=== PATIENT | male | born 1950 | race Caucasian/White ===

== ENCOUNTER → 2016-06-17 | Outpatient (CLI) | payer BC ==
[~2016-06-17] MED LIST: ACET-1257 PO; ASPCH81 PO; BSP/10 PO; CALC200T PO; CILO100T PO; COEN75CA PO; CYCL-259 PO; GLC/500 PO; LISI-729 PO; METO25TA3 PO; OMEG10007 PO; OXYC-609 PO; PRAV20TA PO
[2016-06-17 13:12] LABS: ESTIMATED AVERAGE GLUCOSE 126 mg/dl; HA1C FLAG Normal (Normal)
[2016-06-17 13:17] LABS: ALT/SGPT 84 U/L (12-78); AST/SGOT 52 U/L (15-37); BLOOD UREA NITROGEN 13 mg/dl (7-18); BUN/CREATININE RATIO 12.6 (10-20); CALCIUM 8.9 mg/dl (8.5-10.1); CARBON DIOXIDE 27 mmol/L (21-32); CHLORIDE 109 mmol/L (98-107); GLUCOSE 116 mg/dl (70-99); POTASSIUM 4.3 mmol/L (3.5-5.1); SODIUM 141 mmol/L (136-145)
[2016-06-17 13:20] LABS: ALKALINE PHOSPHATASE 64 U/L (45-117); CHOLESTEROL 112 mg/dl (0-200); CHOLESTEROL/HDL RATIO 2.9; HDL CHOLESTEROL 39 mg/dl; LDL CHOLESTEROL CALCULATED 50 mg/dl; TRIGLYCERIDES 117 mg/dl (0-150); VERY LOW DENSITY LIPOPROT CALC 23 mg/dl
== END | disposition home or self-care (01) ==
LOC: C.LABPVFM 07:22
PROVIDERS: ATTEND Family Medicine
DX: E11.9 Type 2 diabetes mellitus without complications (principal); Z79.899 Other long term (current) drug therapy; E78.5 Hyperlipidemia, unspecified

== ENCOUNTER → 2016-07-16 | Outpatient (CLI) | payer BC ==
--- NOTE | 2016-07-16 11:09 | DIAGNOSTIC IMAGING REPORT ---
Right upper quadrant ultrasound (LIVER) ABDOMEN LIMITED CLINICAL HISTORY: R74.8 Abnormal liver [id number] abnormal liver function tests TECHNIQUE: Ultrasound COMPARISON STUDY: None FINDINGS: Fatty infiltration of liver. Normal caliber bile ducts. Common bile duct 4 mm. Gallbladder pancreas and right kidney are unremarkable IMPRESSION: Fatty infiltration of liver. Otherwise negative study Electronically signed by: Sid Esteban M.D. 07/16/2016 11:08 AM Dictated Date/Time: 07/16/2016 11:06 AM
== END | disposition home or self-care (01) ==
LOC: C.ULTR 10:20
PROVIDERS: ATTEND Family Medicine
DX: R74.8 Abnormal levels of other serum enzymes (principal); K76.0 Fatty (change of) liver, not elsewhere classified

== ENCOUNTER → 2016-10-07 | Outpatient (CLI) | payer BC ==
[~2016-10-07] MED LIST changes: +ACET-1257; -ACET-1257 PO; -LISI-729 PO
[2016-10-07 13:02] LABS: ESTIMATED AVERAGE GLUCOSE 134 mg/dl; HA1C FLAG Normal (Normal)
[2016-10-07 15:06] LABS: ALT/SGPT 60 U/L (12-78); BLOOD UREA NITROGEN 19 mg/dl (7-18); BUN/CREATININE RATIO 19.5 (10-20); CALCIUM 9.9 mg/dl (8.5-10.1); CARBON DIOXIDE 27 mmol/L (21-32); CHLORIDE 106 mmol/L (98-107); CREATININE 0.96 mg/dl (0.60-1.40); GLUCOSE 99 mg/dl (70-99); POTASSIUM 4.4 mmol/L (3.5-5.1); SODIUM 138 mmol/L (136-145)
[2016-10-07 15:09] LABS: ALB/GLOB RATIO 0.9 (0.9-2); ALKALINE PHOSPHATASE 54 U/L (45-117); AST/SGOT 39 U/L (15-37)
== END | disposition home or self-care (01) ==
LOC: C.LABPVFM 08:10
PROVIDERS: ATTEND Family Medicine
DX: Z11.59 Encounter for screening for other viral diseases (principal); F41.8 Other specified anxiety disorders; E11.9 Type 2 diabetes mellitus without complications; E78.5 Hyperlipidemia, unspecified; I10 Essential (primary) hypertension

== ENCOUNTER → 2016-10-17 | Outpatient (CLI) | payer BC ==
[~2016-10-17] MED LIST changes: -OXYC-609 PO
--- NOTE | 2016-10-17 08:37 | DIAGNOSTIC IMAGING REPORT ---
CT HEAD COMBO CT DOSE: 1577.26 mGycm TECHNIQUE: Noncontrast images were obtained through the brain in the axial plane. The sequence was repeated following administration of 119 Optiray 320. A dose lowering technique was utilized adhering to the principles of ALARA. HISTORY: ACUTE HEADACHE SECONDARY TO TRAUMA, NAUSEA COMPARISON: 06/16/2011, MRI the brain dated 12/31/2015 FINDINGS: No intra or extra-axial mass lesions are visualized. There is no CT evidence of acute cortical infarction. There is no evidence of midline shift. There is no acute hemorrhage. No calvarial fractures are visualized. There are minimal white matter hypodensities likely on a small vessel basis. There is no evidence of pathologic ventricular dilatation. There is no evidence of acute sinusitis Postcontrast images reveal no pathologically enhancing masses. IMPRESSION: No acute intracranial findings Electronically signed by: Rainer Felix M.D. 10/17/2016 8:36 AM Dictated Date/Time: 10/17/2016 8:34 AM
== END | disposition home or self-care (01) ==
LOC: C.CTS 08:06
PROVIDERS: ATTEND Neuromusculoskeletal Medicine & OMM
DX: G44.319 Acute post-traumatic headache, not intractable (principal); R11.0 Nausea

== ENCOUNTER → 2016-11-12 | Outpatient (CLI) | payer BC ==
--- NOTE | 2016-11-12 11:55 | DIAGNOSTIC IMAGING REPORT ---
C-SPINE ROUTINE 4 OR 5 VIEWS CLINICAL HISTORY: 66 years-old Male presenting with R CERVICALGIA S/P TRAUMA. TECHNIQUE: Lateral, bilateral oblique, frontal, and open-mouth odontoid views of the cervical spine were obtained. COMPARISON: None. FINDINGS: Normal cervical lordosis. Vertebral bodies demonstrate normal height and alignment. Intervertebral disc preserved. No radiographic evidence of acute fracture or subluxation. Suggestion of osseous neural foraminal narrowing at C3-4 bilaterally, right greater than left, although no significant degenerative change is apparent on lateral view. Normal predental interval. Lateral masses of C1 articulate normally with C2. No prevertebral soft tissue swelling. A vascular stent is visualized in the superior mediastinum likely within the left common carotid artery. IMPRESSION: Possible osseous neural foraminal narrowing bilaterally at C3-4, greater on the right. No radiographic evidence of acute osseous injury. Electronically signed by: Andres Preston M.D. 11/12/2016 11:54 AM Dictated Date/Time: 11/12/2016 11:51 AM
--- NOTE | 2016-11-12 13:13 | Pain Clinic Return Visit ---
Pain Clinic Return Visit Date of Service Nov 12, 2016. Reason For Visit Migraine headaches Pain Location 1 - 2 - 3 - Subjective 66-year-old male who presents with a new pain complaint to our office. He has been working with neurology for some time for his chronic daily headache. He states that his headache occurs at least 20 times to 25 times per month lasting greater than 4 hours in duration causing a severe degree of disability and intrusion into his activities of daily living. He states that typically the right sided with photophobia. He denies any specific aura or triggering aspect of his headache. He states his headache pain typically ranges between 0 and 10 out of 10 but currently 5 out of 10. He states that he normally has some kind of headache every day with periodic frequent flares. He's tried home stretches , Topamax, Lyrica, Tylenol, aspirin, BuSpar to diminish his headaches with limited benefit. He has not previously had any interventional pain management techniques to diminish his headaches. He states that he's recently seen his porter sample case who felt there is no need for change in his prescription. He also recently visited with his dentist and found no additional dental reason for headache. He denies any hemiplegia, fever, diplopia, slurred speech, or paralysis associated with his headaches. The patient also has a history of left-sided lumbar extremity radicular pain and is post L5-S1 interlaminar HAN performed on 09/23/2016. Patient is reporting continued resolution of left lower extremity radicular pain since the time of the procedure. The patient continues to complain of axial low back pain which has been without change since the time the epidural steroid injection. The patient is planned for repeat radiofrequency ablation procedure initially on the right side in November 2016. He reports axial pain increases with his daytime job related duties especially with twisting and lifting activities. He describes the pain as aching in characteristic and occasionally sharp. He rates his pain at a 0-9/10. He utilizes oxycodone a few times per month with increased levels of pain with efficacy. He describes occasional spasms and sharp pains which can radiate from the lumbosacral region towards the midthoracic area right greater than left-sided. Patient denies weaknesses in the lower extremities, footdrop or falling. He has no bowel or bladder incontinence. He denies saddle anesthesias. He has no further constitutional complaints. Home Medications Scheduled Acetaminophen (Tylenol Extra Strength), 1 TID Aspirin (Aspirin Tab-Chewable *), 81 MG PO DAILY Buspirone HCl (Buspirone HCl), 10 MG PO TID Calcium Carbonate-Vitamin D (Oscal 500/200 D-3), 1 TAB PO DAILY Cilostazol (Pletal), 100 MG PO BID Coenzyme Q10 (Ubidecarenone) (Co Q-10), 1 CAP PO BID Cyclobenzaprine Hcl (Flexeril), 10 MG PO BID Fish Oil ([place]-3), 4 CAP PO BID Metformin Hcl (Glucophage), 500 MG PO BID Metoprolol Succ (Toprol Xl) (Toprol-Xl), 50 MG PO DAILY Pravastatin (Pravachol ), 80 MG PO HS Allergies Coded Allergies: Prednisone (Verified Adverse Reaction, Mild, "goes wacko gets nasty", ) Uncoded Allergies: [id number] (Allergy, Mild, "goes wacko gets nasty", 04/11/15) Medications & Allergies Reconciled: Yes Review of Systems 10 point review of systems was otherwise negative aside from HPI Objective 109/66 pulse 106 respirations 18-36.9C Height feet, inches. Weight (Kilograms) (Pounds) Physical Exam General: Patient sitting quietly in exam room in no acute distress. Speech and thought process appropriate. Mood and affect appropriate. Cognition intact. HEENT: Pupils equally round and reactive to light he is moderately tender over bilateral supraorbital and supratrochlear nerves. Minimally tender over bilateral auriculotemporal nerves. He is exquisitely tender over bilateral greater occipital and lesser occipital nerves. He is nontender over frontal or maxillary sinuses he has mild crepitus bilaterally over his temporomandibular joint. He has very poor dentition but no apparent abscess or other dental caries at this time glasses are intact but able to read a newspaper without difficulty. Neck: He has decreased extension, flexion, side bending and, side bend rotation. He has mild spasm over bilateral mid and proximal trapezius. Right greater than left. He is exquisitely tender over his right C2 and 3 facet joints as well as third occipital nerve. Provocation to these joints re- creates his pain. He is mildly tender over the left C2 3 joint and third occipital nerve. He has 5 out of 5 strength bilateral upper extremities equal throughout with intact sensation. Back/spine: Loss of lumbar lordosis. Patient nontender over the midline. Patient tender to provocative testing of lumbar facet joints at the L2 through L5 level on the right and L3 through S1 level on the left. Facet loadbearing test equivocal bilaterally. There is evidence of paravertebral spasm with a few myoneural trigger points in the thoracolumbar region with some extension into the quadratus lumborum. Range of motion is limited in all planes with slight increase in axial pain. Lower extremities: SLR negative bilaterally. Strength testing 5/5 and equal. Sensation intact without deficit. Neurologic: Cranial nerves grossly intact. Ambulatory function is normal. Laboratory Laboratory Findings Test 09/23/16 09:00 10/07/16 09:00 Range/Units POC Glucose 96 70-99 mg/dl Sodium Level 138 136-145 mmol/L Potassium Level 4.4 3.5-5.1 mmol/L Chloride Level 106 98-107 mmol/L Carbon Dioxide Level 27 21-32 mmol/L Anion Gap 5.0 3-11 mmol/L Blood Urea Nitrogen 19 H 7-18 mg/dl Creatinine 0.96 0.60-1.40 mg/dl Estimated GFR () 95.1 Estimated GFR (Non- 82.0 BUN/Creatinine Ratio 19.5 10-20 Random Glucose 99 70-99 mg/dl Estimated Average Glucose 134 mg/dl Hemoglobin A1c 6.3 H 4.5-5.6 % Calcium Level 9.9 8.5-10.1 mg/dl Total Bilirubin 0.4 0.2-1 mg/dl Aspartate Amino Transferase (AST) 39 H 15-37 U/L Alanine Aminotransferase (ALT) 60 12-78 U/L Alkaline Phosphatase 54 45-117 U/L Total Protein 8.1 6.4-8.2 gm/dl Albumin 3.8 3.4-5.0 gm/dl Globulin 4.3 H 2.5-4.0 gm/dl Albumin/Globulin Ratio 0.9 0.9-2 Hepatitis C Antibody NEG NEG Imaging Radiology: non enhanced, reports reviewed Radiology Findings C-SPINE ROUTINE 4 OR 5 VIEWS CLINICAL HISTORY: 66 years-old Male presenting with R CERVICALGIA S/P TRAUMA. TECHNIQUE: Lateral, bilateral oblique, frontal, and open-mouth odontoid views of the cervical spine were obtained. COMPARISON: None. FINDINGS: Normal cervical lordosis. Vertebral bodies demonstrate normal height and alignment. Intervertebral disc preserved. No radiographic evidence of acute fracture or subluxation. Suggestion of osseous neural foraminal narrowing at C3-4 bilaterally, right greater than left, although no significant degenerative change is apparent on lateral view. Normal predental interval. Lateral masses of C1 articulate normally with C2. No prevertebral soft tissue swelling. A vascular stent is visualized in the superior mediastinum likely within the left common carotid artery. IMPRESSION: Possible osseous neural foraminal narrowing bilaterally at C3-4, greater on the right. No radiographic evidence of acute osseous injury. Electronically signed by: Andres Preston M.D. 11/12/2016 11:54 AM Assessment 1. Lumbar radiculopathy without myelopathy 2. History of lumbar disc herniation L5-S1 with left neural foraminal narrowing 3. Lumbar facet syndrome 4. Chronic lumbago 5. History of sacral alae insufficiency fractures 11/2013 6. History of CVA 7. History of sacroiliitis 8. Chronic migraine headaches 9. Cervical facet syndrome 10. cervicalgia Recommendations 1. Currently pleased with the relief the patient continues to experience status post HAN. Expectations were discussed a verbalized understanding. Should the patient developed symptomatic recurrence, we discussed his candidacy for repeat HAN and he verbalizes understanding. Patient may contact the clinic to schedule. 2. Patient will follow through with a currently scheduled right L2, L3 and L4 medial branch radio frequency ablation procedure. Inherent risks and potential benefits again reviewed. 3. We'll plan for diagnostic right C2, C3 medial branch, and third occipital nerve block. Should he have good relief 2 would plan for radiofrequency ablation of those sites. The risks and benefits and expectations were discussed and the patient agrees to proceed. Procedure will be scheduled. 4. In addition the patient may be a candidate for Botox a migraine protocol. Will discuss further candidacy for this pending results of medial branch block and possible RFA. 5. Follow-up for injection.
== END | disposition home or self-care (01) ==
LOC: C.LABBC 11:23
PROVIDERS: ATTEND Anesthesiology
DX: M54.2 Cervicalgia (principal); Z87.828 Personal history of other (healed) physical injury and trauma

== ENCOUNTER → 2017-02-09 | Outpatient (CLI) | payer BC ==
[~2017-02-09] MED LIST changes: -ACET-1257; +ACET-1257 PO; +LISI-729 PO
[2017-02-09 13:54] LABS: ESTIMATED AVERAGE GLUCOSE 123 mg/dl; HA1C FLAG Normal (Normal)
== END | disposition home or self-care (01) ==
LOC: C.LABPVFM 09:53
PROVIDERS: ATTEND Nurse Practitioner
DX: E11.9 Type 2 diabetes mellitus without complications (principal)

== ENCOUNTER → 2017-06-08 | Outpatient (CLI) | payer OTHER ==
[2017-06-08 13:20] LABS: HEMOGLOBIN A1C 8.8 % (4.5-5.6)
== END | disposition home or self-care (01) ==
LOC: C.LABPVFM 10:23
PROVIDERS: ATTEND Nurse Practitioner
DX: E11.9 Type 2 diabetes mellitus without complications (principal); E78.5 Hyperlipidemia, unspecified

== ENCOUNTER 2024-04-11 15:51 | Inpatient (IN) ==
[2024-04-11] MEDS: SODIUM CHLORIDE 0.9% 1,000 ML IV ONE ×2 (17:01→19:37)
[2024-04-11 17:11] LABS: Basophils # (auto) 0.04 K/uL (0.00-0.20); Basophils % (auto) 0.5 %; Eosinophils # (auto) 0.03 K/uL (0.00-0.50); Eosinophils % (auto) 0.4 %; Hematocrit (blood only) 37.9 % (42.0-52.0); Hemoglobin 13.4 g/dl (14.0-18.0); Immature Granulocytes # (auto) 0.04 K/uL (0.01-0.20); Immature Granulocytes % (auto) 0.5 %; Lymphocytes # (auto) 0.86 K/uL (1.20-3.40); Lymphocytes % (auto) 10.8 %; Mean Corpuscular Hemoglobin 30.2 pg (25.0-34.0); Mean Corpuscular Hgb Conc 35.4 g/dL (32.0-36.0); Mean Corpuscular Volume 85.6 fL (80.0-100.0); Mean Platelet Volume 10.1 fL (9.4-12.4); Monocytes # (auto) 0.72 K/uL (0.11-0.59); Neutrophils # (auto) 6.28 K/uL (1.40-6.50); Neutrophils % (auto) 78.8 %; Platelet Count 140 K/uL (130-400); RDW Coefficient of Variation 13.4 % (11.5-14.5); RDW Standard Deviation 41.9 fL (36.4-46.3); Red Blood Count 4.43 M/uL (4.70-6.10); White Blood Count 7.97 K/ul (4.8-10.8)
[2024-04-11 17:39] LABS: Influenza A virus by PCR Positive (Neg); Influenza B virus by PCR Negative (Neg); RSV by PCR Negative (Neg); SARS CoV2 RNA(COVID-19) Ceph NEGATIVE (Negative)
[2024-04-11 17:46] LABS: Albumin Globulin Ratio 1.1 (0.9-2); Albumin Level 4.1 gm/dl (3.4-5.0); BUN Creatinine Ratio 13.9 (10-20); Bilirubin,Total 0.6 mg/dl (0.2-1.0); Globulin 3.9 gm/dl (2.5-4.0); Magnesium 1.9 mg/dl (1.7-2.4); Troponin I High Sensitivity 17.8 pg/ml (0-20)
--- NOTE | 2024-04-11 17:46 | XRay Report ---
INDICATION: Cough and chest pain. TECHNIQUE: Frontal radiograph of the chest. COMPARISON: Radiograph from 07/10/2015. FINDINGS: The cardiomediastinal silhouette and pulmonary vasculature appear within normal limits. No infiltrate, pleural effusion or pneumothorax. No acute osseous abnormality evident. Stent material noted in the left aspect of the upper mediastinum. IMPRESSION: No acute cardiopulmonary process. Electronically signed by Iain Boogie 04-11-2024 5:03 PM
--- NOTE | 2024-04-11 17:54 | Emergency Department Note ---
Impression & Plan Influenza ED Provider Note NAME: GEORGE CHESTER AGE: 73 SEX: Male INFORMANT: Patient ED PROVIDER(S): Diego Agee MD CHIEF COMPLAINT: Shortness of breath and cough PLAN: Disposition: Admitted none Outpatient prescription management: none Referral: None MEDICAL DECISION MAKING: Patient presented to the emergency room because of shortness of breath and cough. Workup was initiated. Patient was found to be influenza positive. Chest x-ray revealed no evidence of pneumonia. He was quite tachycardic. He was hydrated. He was given Tylenol for fever. He received Tamiflu and Hycodan. Patient was also given a DuoNeb. Patient was monitored. Fever did resolve and patient was still persistently tachycardic ECG did show some ST depression. Patient denied any chest pain. Suspect illness is causing the tachycardia but given his persistence further management in the hospital be necessary. Consultation was made with the [facility] service. Patient was evaluated in the ER and admitted for further management Care/management discussed with: crane manager Level of care consideration(s): After review of the information above and other included data, I feel the patient requires escalation of care to admission Triage Nursing notes: reviewed and agree them. Vital Signs: reviewed and remarkable for tachycardia, fever Additional History obtained from: none Chronic Medical/Social Conditions affecting care: COPD Prior/ Outside/ External records reviewed: none Differential Diagnosis: Viral syndrome, otitis, pharyngitis, pneumonia, influenza, meningitis, urinary tract infection, sepsis, bacteremia, as well as other pathologies. Diagnostics, independently interpreted by me: ECG: Twelve-lead ECG reveals a sinus tachycardia at [address] depression noted. Cardiac Monitoring: Cardiac monitoring ordered by me: The patient was placed on continuous cardiac monitoring and observed. It revealed sinus tachycardic rhythm at 122 beats per minute without ectopy or evidence of dysrhythmia. Medical decision rules: none Imaging studies: Chest x-ray. Findings: A chest x-ray was performed and revealed no pneumothorax, effusion, infiltrate, pulmonary edema, free air under the diaphragm, or wide mediastinum. Impression: No acute disease. HPI: 73 year old Male arrives for evaluation of shortness of breath and cough. This started 2 days ago and is persisting. The patient also notes the following associated symptoms, diarrhea, congestion,Fatigue, fevers, chills, sore throat, headache nausea, weakness, myalgias. The patient has found out relieving factors. Current pain is rated as 10/10. Pt denies LOC, diaphoresis, visual changes, neck pain, chest pain, vomiting, abdominal pain, back pain, melena, hematochezia, urinary symptoms, numbness, , lymphadenopathy, rash, or other complaints.. PAST MEDICAL HISTORY: See Below, diabetes, hypertension, PAD PAST SURGICAL HISTORY: See Below, SOCIAL HISTORY: See Below, smoker HOME MEDICATIONS: See Below ALLERGIES: See Below VITALS: See Below PHYSICAL EXAMINATION: GENERAL: Awake, alert, ill-appearing, in no distress HENT: Normocephalic, atraumatic. Oropharynx unremarkable. EYES: Normal conjunctiva. Sclera non-icteric. NECK: Inspection normal. Non-tender. Supple. No nuchal rigidity. FROM. No masses. RESPIRATORY: Clear to auscultation. No wheezes. No rales. Increased respiratory effort. CARDIAC: Tachycardic rate. Normal rhythm. No murmurs. No rubs. Extremities warm and well perfused. Pulses equal. No JVD. GI: Soft, non-distended. No tenderness to palpation. No rebound or guarding. No masses. RECTAL: Deferred. MUSCULOSKELETAL: Atraumatic. Chest examination reveals no tenderness. The back is symmetrical on inspection without obvious abnormality. There is no CVA tenderness to palpation. No joint edema. LOWER EXTREMITIES: Calves are equal size bilaterally and non-tender. No edema. No discoloration. NEURO: Normal sensorium. No sensory or motor deficits noted. SKIN: No rash or jaundice noted. PROCEDURES: none CRITICAL CARE: none OBSERVATION NOTE: none Past Med/Surg History Problem List (Updated 04/12/24 @ 00:46 by Background Daemon) Influenza (Acute) Tick bite Sinus congestion Joint pain Rash Subclavian steal syndrome (Chronic) Solitary thyroid nodule (Chronic) Peripheral vascular disease (Chronic) Migraine (Chronic) Lumbar radiculopathy (Chronic) Hypertension (Chronic) Hyperlipidemia (Chronic) Diabetes type 2, controlled (Chronic) Carotid artery stenosis (Chronic) COPD, mild (Chronic) Anxiety (Chronic) Abnormal MRI, pelvis (Acute) Medical History (Updated 04/12/24 @ 00:46 by Background Dasebastiánon) Carpal tunnel syndrome Surgical History (Updated 01/26/19 @ 14:44 by MALICK Prado) History of hernia repair Family History (Updated 01/26/19 @ 14:46 by MALICK Prado) Sister Diabetes Hypertension Sarcoidosis Skin cancer Daughter No problems noted. Brother Diabetes Mother Diabetes Myocardial infarction Father Diabetes Suicide Other Dyslipidemia Stroke Denies family history of Ovarian cancer Prostate cancer Breast cancer Colorectal cancer Social History (Updated 01/26/19 @ 14:48 by MALICK Prado) Smoking Status: Current every day smoker Tobacco Type: Cigarettes packs per day: 1; Second Hand Exposure: Yes; Do You Dip or Chew Tobacco: No; Hx Alcohol Use: No Hx Substance Use: No Preferred Language: Czech Visual Impairment: No Limitations Hearing Ability: Normal marital status: Current Living Situation: Spouse current occupational status: employed 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 [employer] Feels Safe at Home: Hesitant to Answer Dental Care, Regularly: Yes Physical Activity Frequency: Daily Seatbelt Use: always Sunscreen Use: Yes Allergies Allergies Allergy/AdvReac Type Severity Reaction Status Date / Time prednisone AdvReac Mild "goes Verified 01/26/19 14:43 wacko gets nasty" Results & Data (ED) Vital Signs Vital Signs - 24 hr 04/11/24 16:12 04/11/24 16:15 04/11/24 17:51 Temperature 36.6 C Temperature Source Oral Pulse Rate 122 H Pulse Rate [Apical] 125 H Pulse Rhythm [Apical] Respiratory Rate 18 19 Respiratory Effort / Characteristics Non-Labored Spontaneous Respiratory Depth Normal Blood Pressure 158/66 H Blood Pressure [Left Arm] 179/124 H Blood Pressure Mean 96 Blood Pressure Mean [Left Arm] 142 Blood Pressure Position Sitting Blood Pressure Position [Left Arm] Semi-fowlers Pulse Oximetry 94 97 92 Oxygen Delivery Method Room Air Room Air Room Air Sepsis Recent Fever Within 48 Hours No Sepsis New/Unexplained Change in Mental Status No Sepsis Action Taken by Nursing No Action Required 04/11/24 17:51 04/11/24 18:15 04/11/24 18:48 Temperature Temperature Source Pulse Rate 125 H 130 H Pulse Rate [Apical] 137 H Pulse Rhythm [Apical] Regular Respiratory Rate 19 18 Respiratory Effort / Characteristics Spontaneous Respiratory Depth Normal Blood Pressure Blood Pressure [Left Arm] 145/72 H Blood Pressure Mean Blood Pressure Mean [Left Arm] 96 Blood Pressure Position Blood Pressure Position [Left Arm] Pulse Oximetry 97 96 Oxygen Delivery Method Room Air Room Air Sepsis Recent Fever Within 48 Hours Sepsis New/Unexplained Change in Mental Status Sepsis Action Taken by Nursing 04/11/24 19:34 04/11/24 20:14 04/11/24 21:19 Temperature 37.7 C H 38.3 C H 37.3 C Temperature Source Oral Oral Oral Pulse Rate Pulse Rate [Apical] 126 H Pulse Rhythm [Apical] Respiratory Rate 32 H Respiratory Effort / Characteristics Respiratory Depth Blood Pressure Blood Pressure [Left Arm] 153/69 H Blood Pressure Mean Blood Pressure Mean [Left Arm] 97 Blood Pressure Position Blood Pressure Position [Left Arm] Pulse Oximetry 94 Oxygen Delivery Method Room Air Sepsis Recent Fever Within 48 Hours Sepsis New/Unexplained Change in Mental Status Sepsis Action Taken by Nursing Laboratory Data 04/11/24 16:49 04/11/24 16:49 Lab Results 04/11/24 04/11/24 Range/Units 16:49 18:35 WBC 7.97 (4.8-10.8) K/ul RBC 4.43 L (4.70-6.10) M/uL Hgb 13.4 L (14.0-18.0) g/dl Hct 37.9 L (42.0-52.0) % MCV 85.6 (80.0-100.0) fL MCH 30.2 (25.0-34.0) pg MCHC 35.4 (32.0-36.0) g/dL RDW Std Deviation 41.9 (36.4-46.3) fL RDW Coeff of Andrey 13.4 (11.5-14.5) % Plt Count 140 (130-400) K/uL MPV 10.1 (9.4-12.4) fL Immature Gran % (Auto) 0.5 % Neut % (Auto) 78.8 % Lymph % (Auto) 10.8 % Cocke % (Auto) 9.0 % Eos % (Auto) 0.4 % Baso % (Auto) 0.5 % Neut # (Auto) 6.28 (1.40-6.50) K/uL Lymph # (Auto) 0.86 L (1.20-3.40) K/uL Cocke # (Auto) 0.72 H (0.11-0.59) K/uL Eos # (Auto) 0.03 (0.00-0.50) K/uL Baso # (Auto) 0.04 (0.00-0.20) K/uL Immature Gran # (Auto) 0.04 (0.01-0.20) K/uL PT 10.8 (9.0-12.0) Seconds INR 1.0 (0.9-1.1) APTT 31 (21-31) Seconds PTT Ratio 1.2 Sodium 134 L (136-145) mmol/L Potassium 4.0 (3.5-5.1) mmol/L Chloride 104 (98-107) mmol/L Carbon Dioxide 20 L (21-32) mmol/L Anion Gap 10 (3-11) BUN 15 (6-23) mg/dl Creatinine 1.08 (0.6-1.4) mg/dl Est Cr Clr Drug Dosing 55.0 ml/min eGFR 72.46 BUN/Creatinine Ratio 13.9 (10-20) Glucose 238 H (70-99(Fasting)) mg/dl Calcium 9.0 (8.6-10.3) mg/dl Magnesium 1.9 (1.7-2.4) mg/dl Total Bilirubin 0.6 (0.2-1.0) mg/dl AST 41 H (13-39) U/L ALT 34 (7-52) U/L Alkaline Phosphatase 45 (34-104) U/L Troponin I High Sens 17.8 (0-20) pg/ml Total Protein 8.0 (6.0-8.3) gm/dl Albumin 4.1 (3.4-5.0) gm/dl Globulin 3.9 (2.5-4.0) gm/dl Albumin/Globulin Ratio 1.1 (0.9-2) SARS-CoV-2 (PCR) NEGATIVE (Negative) Influenza Type A (PCR) Positive A (Neg) Influenza Type B (PCR) Negative (Neg) RSV (RT-PCR) Negative (Neg) Administered Medications Discontinued Medications Acetaminophen (Acetaminophen 500 Mg Tab) 1,000 mg PO NOW STA Stop: 04/11/24 19:56 Last Admin: 04/11/24 20:22 Dose: 1,000 mg Documented By: NRB Albuterol (Albut/Ipratrop 3mg/0.5mg Neb 3 Ml Vial) 3 ml NEB NOW STA; Protocol Stop: 04/11/24 17:41 Last Admin: 04/11/24 18:12 Dose: 3 ml Documented By: AMS Hydrocodone Bit/Homatropine Methylb (Hydrocodone/Homatropine Syrup 5mg/1.5mg 5ml Udp) 5 ml PO NOW STA Stop: 04/11/24 17:41 Last Admin: 04/11/24 18:12 Dose: 5 ml Documented By: AMS Sodium Chloride (Nss) 1,000 mls @ 999 mls/hr IV .Q1H1M ONE Stop: 04/11/24 17:33 Last Infusion: 04/11/24 21:09 Dose: Infused Documented By: supervisor cured meats: 04/11/24 17:01 Dose: 999 mls/hr Documented By: TNK Sodium Chloride (Nss) 1,000 mls @ 999 mls/hr IV .Q1H1M ONE Stop: 04/11/24 18:07 Last Infusion: 04/11/24 21:09 Dose: Infused Documented By: supervisor cured meats: 04/11/24 19:37 Dose: 999 mls/hr Documented By: MED Magnesium Sulfate/Dextrose (Magnesium Sulfate / D5w) 1 gm in 100 mls @ 50 mls/hr IV ONE ONE Stop: 04/11/24 23:42 Last Infusion: 04/12/24 00:56 Dose: Infused Documented By: supervisor cured meats: 04/11/24 22:06 Dose: 50 mls/hr Documented By: MED Doxycycline Hyclate 100 mg/ (Dextrose) 100 mls @ 50 mls/hr IV NOW STA Stop: 04/12/24 00:14 Last Admin: 04/11/24 23:39 Dose: 50 mls/hr Documented By: MED Ioversol (Optiray 320 125ml) 117 ml IV ONCE ONE Stop: 04/11/24 22:37 Last Admin: 04/11/24 22:37 Dose: 117 ml Documented By: GES Levalbuterol HCl (Levalbuterol Hcl 0.63 Mg/3 Ml Neb) 0.63 mg NEB NOW STA; Protocol Stop: 04/11/24 21:38 Last Admin: 04/11/24 22:08 Dose: 0.63 mg Documented By: MED Metoprolol Tartrate (Metoprolol Tartrate 1 Mg/Ml Vial) 2.5 mg IV NOW STA Stop: 04/11/24 21:44 Last Admin: 04/11/24 22:08 Dose: Not Given Documented By: MED Oseltamivir Phosphate (Oseltamivir Phosphate 75 Mg Cap) 75 mg PO NOW STA; Protocol Stop: 04/11/24 17:41 Last Admin: 04/11/24 18:11 Dose: 75 mg Documented By: AMS Imaging Data Radiologist's Impression: Chest X-Ray 04/11/24 16:15 INDICATION: Cough and chest pain. TECHNIQUE: Frontal radiograph of the chest. COMPARISON: Radiograph from 07/10/2015. FINDINGS: The cardiomediastinal silhouette and pulmonary vasculature appear within normal limits. No infiltrate, pleural effusion or pneumothorax. No acute osseous abnormality evident. Stent material noted in the left aspect of the upper mediastinum. IMPRESSION: No acute cardiopulmonary process. Electronically signed by Iain Boogie 04-11-2024 5:03 PM Discharge Plan Visit Data Chief Complaint: Shortness of Breath/Dyspnea Stated Complaint: SOB ED Provider: Diego Agee Discharge Problem: Influenza
[2024-04-11] MEDS: OSELTAMIVIR PHOSPHATE 75 MG CAP PO STA (18:11)
[2024-04-11] MEDS: HYDROcodone/HOMATROPINE SYRUP 5MG/1.5MG 5ML UDP PO STA (18:12)
[2024-04-11] MEDS: ALBUT/IPRATROP 3MG/0.5MG NEB 3 ML VIAL NEB STA (18:12)
[2024-04-11 19:19] LABS: Partial Thromboplastin Ratio 1.2; Partial Thromboplastin Time 31 Seconds (21-31); Prothrombin Time 10.8 Seconds (9.0-12.0)
[2024-04-11] MEDS: ACETAMINOPHEN 500 MG TAB PO STA (20:22)
--- NOTE | 2024-04-11 21:56 | History & Physical Report ---
Date of Service April 11, 2024 Assessment & Plan (1) SOB (shortness of breath): Plan: Shortness of breath secondary to influenza illness/complicated bronchitis Possible underlying COPD Rule out PE given chest pain complaints nonobstructive CAD/PVD status post surgery hypertension, slightly elevated patient not on maintenance medications at home hyperlipidemia, on statin Rx DM2 on oral medications, suboptimal control as of recent hemoglobin A1c of 8.4 last January 2024 chronic anemia, hemoglobin at baseline ongoing tobacco abuse OBS Medical telemetry Doxycycline, nebs RTC Low-dose steroid course if with hypoxemia given concern for exacerbation of un diagnosed COPD (Patient agreeable to prednisone if needed although he has history of agitation secondary to Rx.) CT chest PE study Initiate lisinopril if with persistent BP elevation Basal bolus insulin, ISS BG goal 1 10-1 40, carb count coverage Nicotine patch as needed DVT prophylaxis. Lovenox subcu Full code Text document was generated using [employer] voice recognition software. It may contain grammatical or spelling errors. Kindly contact undersigned for clarification of any documentation item in question. History of Present Illness Chief Complaint: Worsening cough, SOB Primary Care Provider: Dr. Cage History obtained from patient and records. Medical history significant for nonobstructive CAD, PVD status post surgery, hypertension, hyperlipidemia, DM2 on oral medications, chronic anemia (baseline hemoglobin of 13), mood disorder, ongoing tobacco abuse. Few days history of dry cough symptoms which later progressed to junky yellow expectorate. Worsening shortness of breath with substernal pain. Sick contacts. Patient consulted [facility] urgent care center. Directed to ER for further evaluation. Flu swab positive. Tamiflu and neb treatment administered at the ER. 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 [employer] Allergies Allergy/AdvReac Type Severity Reaction Status Date / Time prednisone AdvReac Mild "goes Verified 01/26/19 14:43 wacko gets nasty" Home Medications Medication Instructions Recorded Confirmed Type atorvastatin 40 mg tablet See Rx Instructions .Route .COMPLEX 04/12/24 04/12/24 History cilostazol 100 mg tablet See Rx Instructions .Route .COMPLEX 04/12/24 04/12/24 History semaglutide 7 mg tablet (Rybelsus) See Rx Instructions .Route .COMPLEX 04/12/24 04/12/24 History Past Med/Surg History Problem List (Updated 04/12/24 @ 01:42 by Baldemar Bonds MD) SOB (shortness of breath) Influenza (Acute) Tick bite Sinus congestion Joint pain Rash Subclavian steal syndrome (Chronic) Solitary thyroid nodule (Chronic) Peripheral vascular disease (Chronic) Migraine (Chronic) Lumbar radiculopathy (Chronic) Hypertension (Chronic) Hyperlipidemia (Chronic) Diabetes type 2, controlled (Chronic) Carotid artery stenosis (Chronic) COPD, mild (Chronic) Anxiety (Chronic) Abnormal MRI, pelvis (Acute) Medical History (Updated 04/12/24 @ 01:42 by Baldemar Bonds MD) Carpal tunnel syndrome Surgical History (Updated 01/26/19 @ 14:44 by MALICK Prado) History of hernia repair Family History (Updated 01/26/19 @ 14:46 by MALICK Prado) Sister Diabetes Hypertension Sarcoidosis Skin cancer Daughter No problems noted. Brother Diabetes Mother Diabetes Myocardial infarction Father Diabetes Suicide Other Dyslipidemia Stroke Denies family history of Ovarian cancer Prostate cancer Breast cancer Colorectal cancer Social History (Updated 01/26/19 @ 14:48 by MALICK Prado) Smoking Status: Current every day smoker Tobacco Type: Cigarettes packs per day: 1; Second Hand Exposure: Yes; Do You Dip or Chew Tobacco: No; Hx Alcohol Use: No Hx Substance Use: No Preferred Language: [place] Visual Impairment: No Limitations Hearing Ability: Normal Management Architect Required: No Beliefs That Will Affect Care: None marital status: Current Living Situation: Spouse current occupational status: employed 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 [employer] Feels Safe at Home: No Safety Concerns: Afraid for Self Dental Care, Regularly: Yes Physical Activity Frequency: Daily Seatbelt Use: always Sunscreen Use: Yes Review of Systems Review of Systems: As per HPI, all other systems reviewed and negative Physical Exam Physical Exam: GENERAL: Slightly uncomfortable, unkempt, pleasant, no respiratory distress SKIN: Normal color, warm HEENT: Bespectacled, pink palpebral conjunctivae, no ptosis, dry buccal mucosa NECK : Supple, no tenderness CHEST : Decreased breath sounds, occasional expiratory wheezes, no tenderness HEART : Tachycardic, no obvious murmurs ABDOMEN: no distention, nontender EXTREMITIES : No LE swelling/tenderness, palpable pulses, no other conspicuous deformities noted NEUROLOGIC : Coherent, no facial asymmetry, no other gross focality Results & Data Results & Data Vital Signs (Past 12 Hours) Vital Signs Temp Pulse Pulse Resp BP BP Pulse Ox 04/11/24 21:19 37.3 C 04/11/24 20:14 38.3 C H 04/11/24 19:34 37.7 C H 126 H 32 H 153/69 H 94 04/11/24 18:48 130 H 04/11/24 18:15 137 H 18 145/72 H 96 04/11/24 17:51 125 H 19 97 04/11/24 17:51 125 H 19 179/124 H 92 04/11/24 16:15 97 04/11/24 16:12 36.6 C 122 H 18 158/66 H 94 O2 Del Method 04/11/24 21:19 04/11/24 20:14 04/11/24 19:34 Room Air 04/11/24 18:48 04/11/24 18:15 Room Air 04/11/24 17:51 Room Air 04/11/24 17:51 Room Air 04/11/24 16:15 Room Air 04/11/24 16:12 Room Air Laboratory Results Laboratory Results WBC 7.97 K/ul (4.8-10.8) 04/11/24 16:49 RBC 4.43 M/uL (4.70-6.10) L 04/11/24 16:49 Hgb 13.4 g/dl (14.0-18.0) L 04/11/24 16:49 Hct 37.9 % (42.0-52.0) L 04/11/24 16:49 MCV 85.6 fL (80.0-100.0) 04/11/24 16:49 MCH 30.2 pg (25.0-34.0) 04/11/24 16:49 MCHC 35.4 g/dL (32.0-36.0) 04/11/24 16:49 RDW Std Deviation 41.9 fL (36.4-46.3) 04/11/24 16:49 RDW Coeff of Andrey 13.4 % (11.5-14.5) 04/11/24 16:49 Plt Count 140 K/uL (130-400) 04/11/24 16:49 MPV 10.1 fL (9.4-12.4) 04/11/24 16:49 Immature Gran % (Auto) 0.5 % 04/11/24 16:49 Neut % (Auto) 78.8 % 04/11/24 16:49 Lymph % (Auto) 10.8 % 04/11/24 16:49 Brantley % (Auto) 9.0 % 04/11/24 16:49 Eos % (Auto) 0.4 % 04/11/24 16:49 Baso % (Auto) 0.5 % 04/11/24 16:49 Neut # (Auto) 6.28 K/uL (1.40-6.50) 04/11/24 16:49 Lymph # (Auto) 0.86 K/uL (1.20-3.40) L 04/11/24 16:49 Brantley # (Auto) 0.72 K/uL (0.11-0.59) H 04/11/24 16:49 Eos # (Auto) 0.03 K/uL (0.00-0.50) 04/11/24 16:49 Baso # (Auto) 0.04 K/uL (0.00-0.20) 04/11/24 16:49 Immature Gran # (Auto) 0.04 K/uL (0.01-0.20) 04/11/24 16:49 PT 10.8 Seconds (9.0-12.0) 04/11/24 18:35 INR 1.0 (0.9-1.1) 04/11/24 18:35 APTT 31 Seconds (21-31) 04/11/24 18:35 PTT Ratio 1.2 04/11/24 18:35 Sodium 134 mmol/L (136-145) L 04/11/24 16:49 Potassium 4.0 mmol/L (3.5-5.1) 04/11/24 16:49 Chloride 104 mmol/L (98-107) 04/11/24 16:49 Carbon Dioxide 20 mmol/L (21-32) L 04/11/24 16:49 Anion Gap 10 (3-11) 04/11/24 16:49 BUN 15 mg/dl (6-23) 04/11/24 16:49 Creatinine 1.08 mg/dl (0.6-1.4) 04/11/24 16:49 Est Cr Clr Drug Dosing 55.0 ml/min 04/11/24 16:49 eGFR 72.46 04/11/24 16:49 BUN/Creatinine Ratio 13.9 (10-20) 04/11/24 16:49 Glucose 238 mg/dl (70-99(Fasting)) H 04/11/24 16:49 Calcium 9.0 mg/dl (8.6-10.3) 04/11/24 16:49 Magnesium 1.9 mg/dl (1.7-2.4) 04/11/24 16:49 Total Bilirubin 0.6 mg/dl (0.2-1.0) 04/11/24 16:49 AST 41 U/L (13-39) H 04/11/24 16:49 ALT 34 U/L (7-52) 04/11/24 16:49 Alkaline Phosphatase 45 U/L (34-104) 04/11/24 16:49 Troponin I High Sens 17.8 pg/ml (0-20) 04/11/24 16:49 Total Protein 8.0 gm/dl (6.0-8.3) 04/11/24 16:49 Albumin 4.1 gm/dl (3.4-5.0) 04/11/24 16:49 Globulin 3.9 gm/dl (2.5-4.0) 04/11/24 16:49 Albumin/Globulin Ratio 1.1 (0.9-2) 04/11/24 16:49 SARS-CoV-2 (PCR) NEGATIVE (Negative) 04/11/24 16:49 Influenza Type A (PCR) Positive (Neg) A 04/11/24 16:49 Influenza Type B (PCR) Negative (Neg) 04/11/24 16:49 RSV (RT-PCR) Negative (Neg) 04/11/24 16:49 Impressions Chest X-Ray 04/11/24 16:15 INDICATION: Cough and chest pain. TECHNIQUE: Frontal radiograph of the chest. COMPARISON: Radiograph from 07/10/2015. FINDINGS: The cardiomediastinal silhouette and pulmonary vasculature appear within normal limits. No infiltrate, pleural effusion or pneumothorax. No acute osseous abnormality evident. Stent material noted in the left aspect of the upper mediastinum. IMPRESSION: No acute cardiopulmonary process. Electronically signed by Iain Boogie 04-11-2024 5:03 PM Diagnostic Findings EKG as per my interpretation :Rate 130, sinus tachycardia, normal axis, anteroseptal infarct, ST depression inferior and lateral leads
[2024-04-11] MEDS: MAGNESIUM SULFATE / D5W 1 GM/100 ML BAG IV ONE (22:06)
[2024-04-11] MEDS: LEVALBUTEROL HCL 0.63 MG/3 ML NEB NEB STA (22:08)
[2024-04-11] MEDS: METOPROLOL TARTRATE 1 MG/ML VIAL IV STA (22:08)
[2024-04-11] MEDS: OPTIRAY 320 125ml IV ONE (22:37)
[2024-04-11] MEDS: DOXYCYCLINE HYCLATE 100 MG in DEXTROSE 5% MINI-B 100 ML IV STA (23:39)
[2024-04-12] MEDS: SODIUM CHLORIDE 0.9% 1,000 ML IV ONE (01:00)
[2024-04-12] MEDS: IPRATROPIUM BROMIDE NEB SOLN 0.02% 0.5MG/2.5ML VIAL INH SCH (01:18)
[2024-04-12] MEDS: LEVALBUTEROL 1.25 MG/3 ML NEB NEB SCH (01:19)
[2024-04-12] MEDS ORDERED: GLUCOSE 10 TAB/TUBE PO PRN (01:22)
[2024-04-12] MEDS ORDERED: GLUCOSE 40% GEL 15 GM TUBE PO PRN (01:22)
[2024-04-12] MEDS ORDERED: DEXTROSE 50% 50 ML SYRINGE IV PRN (01:22)
[2024-04-12] MEDS ORDERED: GLUCAGON FOR INJ 1 MG VIAL SQ PRN (01:22)
[2024-04-12] MEDS ORDERED: CARBOHYDRATES FOR HYPOGLYCEMIA PO PRN (01:22)
[2024-04-12] MEDS: INSULIN ASPART PER UNIT CHARGE SC SCH (01:50)
[2024-04-12] MEDS: LANTUS PER UNIT CHARGE SQ SCH (01:50)
--- NOTE | 2024-04-12 02:34 | CT Scan Report ---
Exam(s): CTA CHEST IV Amt: 117 ml optiray 320 EXAM: CT Angiography Chest With Intravenous Contrast CLINICAL HISTORY: Reason for exam: cp. TECHNIQUE: Axial computed tomographic angiography images of the chest with intravenous contrast. Automated exposure control was utilized for the study. A dose lowering technique was utilized adhering to the principles of ALARA. MIP reconstructed images were created and reviewed. COMPARISON: Chest x-ray 04/11/2024 FINDINGS: Pulmonary arteries: Some breathing motion artifact. No central pulmonary embolism. Aorta: Stent in the proximal left subclavian artery. Mild aortic calcifications. No thoracic aortic aneurysm. Lungs: Small area of patchy airspace disease in the right medial upper lobe. Mild peribronchial thickening bilaterally. No mass. No consolidation. Pleural space: Unremarkable. No significant effusion. No pneumothorax. Heart: Mild coronary calcifications. No cardiomegaly. No significant pericardial effusion. No evidence of RV dysfunction. Bones/joints: No acute fracture. No dislocation. Soft tissues: Unremarkable. Lymph nodes: Unremarkable. No enlarged lymph nodes. IMPRESSION: 1. Some breathing motion artifact. No central pulmonary embolism. 2. Small area of patchy airspace disease in the right medial upper lobe. Mild peribronchial thickening bilaterally. May represent infectious/inflammatory process. Electronically signed by: Kimberley Prasad M.D. 04/12/24 02:33 AM
[2024-04-12] MEDS: ACETAMINOPHEN 325 MG TAB PO PRN (05:46)
--- NOTE | 2024-04-12 05:46 | Communication Note ---
Date of Service: April 12, 2024 Patient noted to be febrile and tachycardic in a.m. as per RN. CT chest 1. Some breathing motion artifact. No central pulmonary embolism. 2. Small area of patchy airspace disease in the right medial upper lobe. Mild peribronchial thickening bilaterally. May represent infectious/inflammatory process. AP Sepsis secondary to community-acquired pneumonia Influenza illness Change to full admission CS, add ceftriaxone to doxycycline Continue Tamiflu
[2024-04-12] MEDS: METOPROLOL TARTRATE 1 MG/ML VIAL IV STA (06:12)
[2024-04-12] MEDS: cefTRIAXone SODIUM 2,000 MG/50 ML BAG IV SCH (06:19)
[2024-04-12 06:32] LABS: Basophils # (auto) 0.04 K/uL (0.00-0.20); Basophils % (auto) 0.7 %; Eosinophils # (auto) 0.03 K/uL (0.00-0.50); Eosinophils % (auto) 0.5 %; Hematocrit (blood only) 32.2 % (42.0-52.0); Hemoglobin 11.2 g/dl (14.0-18.0); Immature Granulocytes # (auto) 0.03 K/uL (0.01-0.20); Immature Granulocytes % (auto) 0.5 %; Lymphocytes # (auto) 0.88 K/uL (1.20-3.40); Mean Corpuscular Hgb Conc 34.8 g/dL (32.0-36.0); Mean Corpuscular Volume 86.3 fL (80.0-100.0); Mean Platelet Volume 9.8 fL (9.4-12.4); Monocytes # (auto) 0.74 K/uL (0.11-0.59); Monocytes % (auto) 12.6 %; Neutrophils # (auto) 4.16 K/uL (1.40-6.50); Neutrophils % (auto) 70.7 %; Platelet Count 120 K/uL (130-400); RDW Coefficient of Variation 13.8 % (11.5-14.5); Red Blood Count 3.73 M/uL (4.70-6.10); White Blood Count 5.88 K/ul (4.8-10.8)
--- OUTSIDE RECORDS SUMMARY | 2024-04-12 06:52 | External Medical Summary | Summary of Care ---
Author Name Unknown Organization [facility] Address [address] [place] [address] Phone [phone] Care Team Providers Care Dental Hygiene Instructor Name Role Phone Viki Rojas DO Primary Care Provider [phone] Reason for Visit * Reason Onset Date Comments Medication Refill 03/24/2024 Encounter Details Date Type Department Care Team (Late st Contact Info) Description 03/24/2024 Refill Family Practice [address] [place] [address] [place] [id number] Viki Rojas DO [address] [place] [address] Diabetes mellitus with peripheral vascular disease ([facility])* Allergies Active Allergy Reactions Criticality Noted Date Comments Prednisone 06/13/2022 Changes in mood/mean documented as of this encounter (statuses as of 03/31/2024) Medications Naproxen Sodium 220 MG Oral Tablet Take 2 Tablets by mouth as needed for Pain. 3 Active Aspirin 81 MG Oral Tablet Chewable Take 1 Tablet by mouth in the morning. with food.. 100 Tablet 5 3 Active Atorvastatin Calcium 40 MG Oral Tablet (Lipitor)Indicat ions:PVD (peripheral vascular disease) ([facility]),Renal artery stenosis, [place] (HCC) Take 1 Tablet by mouth in the morning. 100 Tablet 3 4 Active Cilostazol 100 MG Oral Tablet (Pletal) Take 1 Tablet by mouth in the morning and 1 Tablet before bedtime. 200 Tablet 3 4 Active Betamethasone Dipropionate Aug 0.05 % External Cream (Diprolene AF)Indications:O ther eczema Apply topically to affected area 2 times a day. To affected area. 50 g 3 4 Active Benzonatate 100 MG Oral Capsule Take 1 Capsule by mouth 3 times a day as needed for Cough. 30 Capsule 5 Active Semaglutide 7 MG Oral Tablet (Rybelsus) Take 1 tablet by mouth once daily in the morning 30 Tablet 5 5 Active Rybelsus 3 MG Oral Tablet (Semaglutide) Take 3 mg by mouth daily first thing in the morning. 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/18/2023 Renal artery stenosis, [place] 02/18/2023 Hyperlipidemia 01/13/2023 Cigarette smoker 09/03/2022 Status post carotid endarterectomy 09/03/2022 Carotid stenosis, non-symptomatic, bilateral 06/2022 S/P insertion of iliac artery stent 09/03/2022 PVD (peripheral vascular disease) 09/03/2022 Presence of stent in artery 09/03/2022 Diabetes mellitus with peripheral vascular disea se 08/13/2022 Spasm of muscle documented as of this encounter (statuses as of 03/31/2024) Resolved Problems Problem Noted Date Diagnosed Date Resolved Date Food insecurity 10/13/2022 02/12/2023 Overview: Per [facility] Protocol documented as of this encounter (statuses as of 03/31/2024) Immunizations Name Administration Dates Next Due Pneumococcal Conjugate Vacc, 13 Valent (Prevnar) 01/22/2016 Pneumococcal Polysaccharide PPV23 (Pneumovax) RSV Vac., Bivalent, Perfusion F, Pf,0.5 Ml (Abry svo) 03/26/2023 Seasonal Influenza Virus Vac cine, Unspecified Formulation 01/22/2016,01/15/2015 Seasonal Influenza, High Dos e, Trivalent, PF, IM (Fluzone HD) 11/03/2023 Seasonal Influenza, Quadrivalent Hd (Fluzone Hd) 01/13/2023 TDAP, Age 7 and older, IM (Adacel) 05/14/2018 Varicella Zoster Vaccine (Adult) 01/15/2015 Zoster Vaccine Recombinant (Shingrix) 08/13/2022 ,06/13/2022 documented as of this encounter Social History Tobacco Use Types Packs/Day Years Used Date Smoking Tobacco: Every Day Cigarettes 1 50 Passive Smoke Exposure: Current Smokeless Tobacco: Former Chew Comments:02/18/23 1 pack dorian ly, declined pamphlet Alcohol Use Standard Drinks/Week Comments Not Currently 0 (1 standard drink = 0.6 oz pur e alcohol) PHQ-2 Answer Date Recorded PHQ Adult Total Score 0 02/18/2024 Hunger Vital Sign Answer Date Recorded Within the past 12 months, y ou worried that your food would run out before you got the money to buy more. Never true 02/18/20 24 Within the past 12 months, t he food you bought just didn't last and you didn't have money to get more. Never true 02/18/2024 Childcare Answer Date Recorded Do you feel overwhelmed with taking care of a child, family member or friend? No 02/18/2024 Does your family need help f inding childcare? (Household - for ages 0-17 years) Not on file 02/18/2024 Clothing Answer Date Recorded Have you been unable to get clothing when it was really needed? No 02/18/2024 Is your family able to get c lothes or diapers when needed? (Household - for ages 0-17 years) Not on file 02/18/2024 Personal Safety Answer Date Recorded Do you feel unsafe or have concerns for your saf ety? No 02/18/2024 Do you have concerns for you r family's safety? (Household - for ages 0-17 years) Not on file 02/18/2024 Utilities Answer Date Recorded Do you have trouble paying y our heating, water, or electric bill? No 02/18/2024 Is your family able to pay t he heat, water, or electric bill? (Household - for ages 0-17 years) Not on file 02/18/2024 Does your family have access to good internet? (Household - for ages 0-17 years) Not on file 02/18/2024 Employment Status Answer Date Recorded Are you unemployed or without regular income? No 02/18/2024 Does the household have a re gular source of income? (Household - for ages 0-17 years) Not on file 02/18/2024 Social Connections Answer Date Recorded How often do you feel lonely or isolated from th ose around you? Never 02/18/2024 Financial Resource Strain Answer Date R ecorded Do you have any trouble payi ng for your medications, or do you think you might in the future? No 02/18/2024 Does your family have troubl e paying for medicine? (Household - for ages 0-17 years) Not on file 02/18/2024 Transportation Needs Answer Date Record ed Do you have trouble getting a ride to medical visits or work? (Adult - for ages 18 years and over) Not on file 02/18/2024 Does your family have a hard time getting a ride to doctors visits? (Household - for ages 0-17 years) Not on file 02/18/2024 Has lack of transportation k ept you from medical appointments, meetings, work, or from getting things needed for daily living? Check all that apply. No 02/18/2024 Do you (or your family) have trouble finding or paying for a ride (transportation)? (Household - for ages 0-17 years) Not on file 02/18/2024 Housing Stability Answer Date Recorded Do you currently live in a s helter or have no steady place to sleep at night? No 02/18/2024 Do you think you are at risk of becoming homeless? (Adult - for ages 18 years and over) Not on file 02/18/2024 Does your family worry about paying for your home or becoming homeless? (Household - for ages 0-17 years) Not on file 1 04/20/2023 Are you homeless or worried that you might be in the future? No 02/18/2024 Are you (or your family) radha eless or worried that you might be in the future? (Household - for ages 0-17 years) Not on file Food Insecurity Answer Date Recorded Do you need food for this week? No 02/18/2024 Are you able to get enough f ood for your family? (Household - for ages 0-17 years) Not on file 02/18/2024 Does your family need food t his week? (Household - for ages 0-17 years) Not on file 02/18/2024 Do you always have enough fo od for your family? (Household - for ages 0-17 years) Not on file 02/18/2024 Sex and Gender Information Value Date Recorded Sex Assigned at Male 11/03/2023 7:57 AM EDT Legal Sex Male 5:55 AM EST Gender Identity Male 11/03/2023 7:57 AM EDT Sexual Orientation Straight 11/03/2023 7: 57 AM EDT documented as of this encounter Miscellaneous Notes * Telephone Encounter - Sarah Purdy RP - 03/31/2024 3:19 PM EST Prior auths filed with MARILU KILPATRICK (Prior Auth (EOC) ID: [id number]) and [facility]ACE via fax. Sarah Hargrove, Pharm D, [facility] Clinical Pharmacist [address] - [facility] 03/31/2024, 3:19 PM Ph. [phone] * Addendum Note - Ibis Beard RPh - 03/28/2024 2:41 PM ESTAddended by: IBIS BEARD on: 03/28/2024 02:41 PM Modules accepted: Orders * Telephone Encounter - Ibis Beard RP - 03/28/2024 2:40 PM EST Pt aware. Thank you, Ibis Beard PharmD Clinical Pharmacist [facility] ([facility]) [phone] 03/28/2024, 2:40 PM * Telephone Encounter - Viki Rojas DO - 03/28/2024 8:55 AM ESTSigned Prescriptions: Disp Refills Semaglutide 7 MG Oral Tablet (Rybelsus) 30 Tab*5 Sig: Take 1 tablet by mouth once daily in the morningAuthorizing Provider: VIKI ROJAS * Telephone Encounter - Viki Rojas DO - 03/28/2024 8:55 AM EST Rx sent. * Telephone Encounter - Ibis Beard [facility] - 03/24/2024 6:25 PM EST Pending Prescriptions: Disp Refills Semaglutide 7 MG Oral Tablet (Rybelsus) 30 Tab*2 Sig: Take 1 tablet by mouth once daily in the morning * Telephone Encounter - Ibis Beard [facility] - 03/24/2024 6:20 PM EST Results for orders placed or performed in visit on 02/18/24 HEMOGLOBIN A1C Result Value Ref Range Hemoglobin A1C 8.4 (H) 4.0 - 5.6 % Estimated Average Glucose 194 (H) <126 mg/dL Recommend to increase rybelsus to 7 mg daily. Recheck A1C in 3 months. Thank you, Ibis Beard, PharmD Clinical Pharmacist [facility] ([facility]) [phone] 03/24/2024, 6:24 PM * Telephone Encounter - Kristan Boles CPhT - 03/24/2024 3:07 PM EST Did you pend patient's preferred pharmacy and medication before forwarding?yes Pharmacy: [facility] [address] Pending Prescriptions: Disp Refills Rybelsus 3 MG Oral Tablet (Semaglutide) 30 Tab*5 Sig: Take 3 mg by mouth daily first thing in the morning. Last Visit: 02/18/2024 (in office), 09/29/2023 (telemedicine) Next Visit: 05/13/2024 If no future appointments scheduled, and last appointment is greater than a year ago, please schedule patient for a follow-up appointment Last date the medication was ordered: 11/04/2023 Is this request for a controlled substance?No Urine Drug Screen:No results found for this or any previous visit. Patient Phone Numbers Labs: Lab Results Component Value Date/Time CREAT 1.0 02/18/2024 08:35 AM CREAT 0.8 01/02/2004 03:14 PM POTASSIUM 5.0 02/18/2024 08:35 AM POTASSIUM 4.1 01/02/2004 03:14 PM TSH 0.84 06/13/2022 03:45 PM LDL 54 09/29/2023 08:43 AM ALT 39 09/29/2023 08:43 AM ALT 30 01/02/2004 03:14 PM HGBA1C 8.4 (H) 02/18/2024 08:35 AM HGBA1C 5.6 01/02/2004 03:14 PM documented in this encounter Plan of Treatment Upcoming Encounters Date Type Department Care Team (Late st Contact Info) Description 05/11/2024 10:50 AM EDT Office Visit Vascular Surgery, [facility] [address] [place] [address] Diego Rangel MD [address] [place] [address] 05/13/2024 8:00 AM EDT Office Visit Family Practice [address] [place] [address] [place] [phone] Viki Rojas DO [address] [place] [address] Health Maintenance Due Date Last Done Comments Cologuard 08/13/1995 Colonoscopy 08/13/1995 Colorectal Cancer Screening 08/13/1995 Fecal Occult Blood Test 08/13/1995 Sigmoidoscopy 08/13/1995 Lung Cancer Screening 2000 Adult Wellness Visit 2016 *BASELINE EKG FOR HTN 08/15/2022 COVID-19 Vaccine ( season) 2023 HbA1c 08/18/2024 02/18/2024, 09/01, 03/26/2023, Additional history exists Albumin/Creatinine Ratio 09/28/2024 09/29/2023, 07/31 DISCUSS TOBACCO CESSATION (REFER TO SMARTSET #3291) 11/02/2024 11/03/2023 (Discussed) Diabetic Foot Exam 11/02/2024 11/03/2023, 08/13/2022 Diabetic Eye Exam 12/17/2024 12/18/2023, , 11/03/2023, Additional history exists Depression Monitoring 02/17/2025 02/18/2024 GFR 02/17/2025 02/18/2024, 09/01, 03/26/2023, Additional history exists DTap/Tdap Vaccines (2 - Td or Tdap) 05/14/2028 05/14/2018 Pneumococcal Vaccine: 50+ Years Completed 08/13/2022, 01/22/2016 Zoster Vaccines Completed 08/13/2022, 05/31, 01/15/2015 AAA Screening Completed 11/24/2022, 07/08/2022 Influenza Vaccine (FLU shot) Completed 05/2023, 01/13/2023, 01/22/2016, Additional history exists HPV (Gardasil) Vaccine Aged Out No lo nger eligible based on patient's age to complete this topic Hepatitis B Vaccine Aged Out No longe r eligible based on patient's age to complete this topic MENINGOCOCCAL (MENACTRA/MENVEO) Aged Out No longer eligible based on patient's age to complete this topic documented as of this encounter Medical Devices Not on filedocumented as of this encounter Visit Diagnoses Diagnosis Diabetes mellitus with peripheral vascular disease (HCC)- Primary Type II or unspecified type diabetes mellitus with peripheral circulatory disorders, not stated as uncontrolled documented in this encounter Care Teams Dental Hygiene Instructor Relationship Specialty Start Date End Date Viki Rojas DO [address] [place] [address] PCP - General Family Medicine 09/29/23 documented as of this encounter
--- OUTSIDE RECORDS SUMMARY | 2024-04-12 06:52 | External Medical Summary | Summary of Care ---
Author Name Unknown Organization [facility] Address [address] [place] [address] Phone [phone] Care Team Providers Care Manager Inspection Name Role Phone Viki Rojas DO Primary Care Provider [phone] Reason for Visit * Reason Onset Date Comments Medication Refill 03/24/2024 Encounter Details Date Type Department Care Team (Late st Contact Info) Description 03/24/2024 Refill Family Practice [address], [place] [address] [place] [phone] Viki Rojas DO [address] [place] [address] Diabetes mellitus with peripheral vascular disease ([facility])* Allergies Active Allergy Reactions Criticality Noted Date Comments Prednisone 06/13/2022 Changes in mood/mean documented as of this encounter (statuses as of 03/28/2024) Medications Naproxen Sodium 220 MG Oral Tablet Take 2 Tablets by mouth as needed for Pain. 3 Active Aspirin 81 MG Oral Tablet Chewable Take 1 Tablet by mouth in the morning. with food.. 100 Tablet 5 3 Active Atorvastatin Calcium 40 MG Oral Tablet (Lipitor)Indicat ions:PVD (peripheral vascular disease) ([facility]),Renal artery stenosis, [place] (HCC) Take 1 Tablet by mouth in [...] as of this encounter (statuses as of 03/28/2024) Active Problems Problem Noted Date Diagnosed Date Moderate depressive disorder 03/26/2023 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/18/2023 Renal artery stenosis, [place] 02/18/2023 Hyperlipidemia 01/13/2023 Cigarette smoker 09/03/2022 Status post carotid endarterectomy 09/03/2022 Carotid stenosis, non-symptomatic, bilateral 06/2022 S/P insertion of iliac artery stent 09/03/2022 PVD (peripheral vascular disease) 09/03/2022 Presence of stent in artery 09/03/2022 Diabetes mellitus with peripheral vascular disea se 08/13/2022 Spasm of muscle documented as of this encounter (statuses as of 03/28/2024) Resolved Problems Problem Noted Date Diagnosed Date Resolved Date Food insecurity 10/13/2022 02/12/2023 Overview: Per [facility] Protocol documented as of this encounter (statuses as of 03/28/2024) Immunizations Name Administration Dates Next Due Pneumococcal [...] as of this encounter Miscellaneous Notes * Addendum Note - Ibis Beard RPh - 03/28/2024 2:41 PM ESTAddended by: IBIS BEARD on: 03/28/2024 02:41 PM Modules accepted: Orders * Telephone Encounter - Ibis Beard RPh - 03/28/2024 2:40 PM EST Pt aware. Thank you, Ibis Beard, PharmD Clinical Pharmacist [facility] ([facility]) [phone] 03/28/2024, 2:40 PM * Telephone Encounter - Viki Rojas DO - 03/28/2024 8:55 AM ESTSigned Prescriptions: Disp Refills Semaglutide 7 MG Oral Tablet (Rybelsus) 30 Tab*5 Sig: Take 1 tablet by mouth once daily in the morningAuthorizing Provider: VIKI ROJAS * Telephone Encounter - Viki Rojas DO - 03/28/2024 8:55 AM EST Rx sent. * Telephone Encounter - Ibis Beard [facility] - 03/24/2024 6:25 PM EST Pending Prescriptions: Disp Refills Semaglutide 7 MG Oral Tablet (Rybelsus) 30 Tab*2 Sig: Take 1 tablet by mouth once daily in the morning * Telephone Encounter - Ibis Beard [facility] - 03/24/2024 6:20 PM EST Results for orders placed or performed in visit on 02/18/24 HEMOGLOBIN A1C Result Value Ref Range Hemoglobin A1C 8.4 (H) 4.0 - 5.6 % Estimated Average Glucose 194 (H) <126 mg/dL Recommend to increase rybelsus to 7 mg daily. Recheck A1C in 3 months. Thank you, Ibis Beard, PharmD Clinical Pharmacist [facility] ([facility]) [phone] 03/24/2024, 6:24 PM * Telephone Encounter - Kristan Boles [facility] - 03/24/2024 3:07 PM EST Did you pend patient's preferred pharmacy and medication before forwarding?yes Pharmacy: [facility] [id number] Pending Prescriptions: Disp Refills Rybelsus 3 [...] 10:50 AM EDT Office Visit Vascular Surgery, [facility] [address] [facility] [place] [address] Diego Rangel MD [address] [place] [address] 05/13/2024 8:00 AM EDT Office Visit Family Practice [address], [place] [address] [place] [address] Viki Rojas DO [address] [place] [address] Health Maintenance Due Date Last Done Comments Cologuard 08/13/1995 Colonoscopy 08/13/1995 Colorectal Cancer Screening 08/13/1995 Fecal Occult Blood Test 08/13/1995 Sigmoidoscopy 08/13/1995 Lung Cancer Screening 2000 Adult Wellness Visit 2016 *BASELINE EKG FOR HTN 08/15/2022 COVID-19 Vaccine ( season) 2023 HbA1c 08/18/2024 02/18/2024, 073 , 03/26/2023, Additional history exists Albumin/Creatinine Ratio 09/28/2024 09/29/2023, 07/31 DISCUSS TOBACCO CESSATION (REFER TO SMARTSET #3291) 11/02/2024 11/03/2023 (Discussed) Diabetic Foot Exam 11/02/2024 11/03/2023, 08/13/2022 Diabetic Eye Exam 12/17/2024 12/18/2023, , 11/03/2023, Additional history exists Depression Monitoring 02/17/2025 02/18/2024 GFR 02/17/2025 02/18/2024, 073 , 03/26/2023, Additional history exists DTap/Tdap Vaccines (2 [...] uncontrolled documented in this encounter Care Teams Manager Inspection Relationship Specialty Start Date End Date Viki Rojas DO [address] [place] [address] PCP - General Family Medicine 09/29/23 documented as of this encounter
--- OUTSIDE RECORDS SUMMARY | 2024-04-12 06:52 | External Medical Summary | Summary of Care ---
Author Name Unknown Organization [facility] Address [address] [place] [address] Phone [phone] Care Team Providers Care Veneer Sorter Name Role Phone Viki Cage DO Primary Care Provider [phone] Reason for Visit * Reason Onset Date Comments Medication Question 04/04/2024 Encounter Details Date Type Department Care Team (Late st Contact Info) Description 04/04/2024 Telephone Family Practice [address], [place] [address] [place] [address] Viki Cage DO [address] [place] [address] Medication Question Allergies Active Allergy Reactions Criticality Noted Date Comments Prednisone 06/13/2022 Changes in mood/mean documented as of this encounter (statuses as of 04/05/2024) Medications Naproxen Sodium 220 MG Oral Tablet Take 2 Tablets by mouth as needed for Pain. 3 Active Aspirin 81 MG Oral Tablet Chewable Take 1 Tablet by mouth in the morning. with food.. 100 Tablet 5 3 Active Atorvastatin Calcium 40 MG Oral Tablet (Lipitor)Indicati ons:PVD (peripheral vascular disease) (HCC),Renal artery stenosis, [place] (HCC) Take 1 Tablet by mouth in the morning. 100 Tablet 3 4 Active Cilostazol 100 MG Oral Tablet (Pletal) Take 1 Tablet by mouth in the morning and 1 Tablet before bedtime. 200 Tablet 3 4 Active Betamethasone Dipropionate Aug 0.05 % External Cream (Diprolene AF)Indications:Ot her eczema Apply topically to affected area 2 times a day. To affected area. 50 g 3 4 Active Benzonatate 100 MG Oral Capsule Take 1 Capsule by mouth 3 times a day as needed for Cough. 30 Capsule 5 Active Semaglutide 7 MG Oral Tablet (Rybelsus) Take 1 tablet by mouth once daily in the morning 30 Tablet 5 5 Active documented as of this encounter (statuses as of 04/05/2024) Active Problems Problem Noted Date Diagnosed Date Moderate depressive disorder 03/26/2023 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/18/2023 Renal artery stenosis, [place] 02/18/2023 Hyperlipidemia 01/13/2023 Cigarette smoker 09/03/2022 Status post carotid endarterectomy 09/03/2022 Carotid stenosis, non-symptomatic, bilateral 06/2022 S/P insertion of iliac artery stent 09/03/2022 PVD (peripheral vascular disease) 09/03/2022 Presence of stent in artery 09/03/2022 Diabetes mellitus with peripheral vascular disea se 08/13/2022 Spasm of muscle documented as of this encounter (statuses as of 04/05/2024) Resolved Problems Problem Noted Date Diagnosed Date Resolved Date Food insecurity 10/13/2022 02/12/2023 Overview: Per [facility] Protocol documented as of this encounter (statuses as of 04/05/2024) Immunizations Name Administration Dates Next Due Pneumococcal [...] encounter Miscellaneous Notes * Telephone Encounter - Viki Cage DO - 04/04/2024 5:37 PM EST Noted and agree. * Telephone Encounter - Sarah Purdy RPh - 04/04/2024 4:17 PM EST Patient Phone Numbers Left message on patient's voicemail to double up and take two Rybelsus 3 mg tabs until finished then start Rybelsus 7mg thereafter. Sarah Hargrove, Pharm D, BCACP Clinical Pharmacist [address] - [facility] 04/04/2024, 4:33 PM Ph. [phone] * Telephone Encounter - Abigail Dowd OSA - 04/04/2024 3:19 PM EST Arpit called and stated he just picked up a bottle of the Rybelsu. He stated he was taking 3 mg and was told they want him to increase it to the 7mg. He has some of the 3 mg left over. Should he start the 7 mg today? Please call him back with advice. documented in this encounter Plan of Treatment Upcoming Encounters Date Type Department Care Team (Late st Contact Info) Description 05/11/2024 10:50 AM EDT Office Visit Vascular Surgery, [address] [place] [address] Diego Rangel MD [address] [place], [place] [address] 05/13/2024 8:00 AM EDT Office Visit Family Practice [address], [place] [address] [place] [phone] Viki Cage DO [address] [place] [address] Health Maintenance Due Date Last Done Comments [...] Not on filedocumented as of this encounter Care Teams Veneer Sorter Relationship Specialty Start Date End Date Viki Cage DO [address] [place] [address] PCP - General Family Medicine 09/29/23 documented as of this encounter
--- OUTSIDE RECORDS SUMMARY | 2024-04-12 06:52 | External Medical Summary | Summary of Care ---
Author Name Unknown Organization [facility] Address [address] [place] [address] Phone [phone] Care Team Providers Care Re Recording Mixer Name Role Phone Viki Cage DO Primary Care Provider [phone] Reason for Visit * Reason Onset Date Comments Medication Question 04/04/2024 Encounter Details Date Type Department Care Team (Late st Contact Info) Description 04/04/2024 Telephone Family Practice [address], [place] [address] [place] [address] Viki Cage DO [address] [place] [address] Medication Question Allergies Active Allergy Reactions Criticality [...] ons:PVD (peripheral vascular disease) (HCC),Renal artery stenosis, [place] (HCC) Take 1 Tablet by mouth in [...] mesenteric artery stenosis 02/18/2023 Renal artery stenosis, [place] 02/18/2023 Hyperlipidemia 01/13/2023 Cigarette smoker 09/03/2022 Status [...] [facility] 04/04/2024, 4:33 PM Ph. [phone] * Telephone Encounter - Abigail Dowd OSA [...] 10:50 AM EDT Office Visit Vascular Surgery, [address] [place] [address] Diego Rangel MD [address] [place], [place] [address] 05/13/2024 8:00 AM EDT Office Visit Family Practice [address], [place] [address] [facility] [place] [phone] Viki Cage DO [address] [place] [address] Health Maintenance Due Date Last Done Comments [...] filedocumented as of this encounter Care Teams Re Recording Mixer Relationship Specialty Start Date End Date Viki Cage DO [address] [place] [place] [address] PCP - General Family Medicine 09/29/23 documented as of this encounter
--- OUTSIDE RECORDS SUMMARY | 2024-04-12 06:53 | External Medical Summary | Summary of Care ---
Author Name Unknown Organization [facility] Address [address] [place] [address] Phone [phone] Care Team Providers Care Rivet Driver Name Role Phone Viki Rojas DO Primary Care Provider [phone] Reason for Visit * Reason Onset Date Comments Advice 11/03/2023 Scan To Read 11/03/2023 Encounter Details Date Type Department Care Team (Late st Contact Info) Description 11/03/2023 Telephone Family Practice [address], [place] [address] [place] [phone] Viki Rojas DO [address] [place] [address] Advice; Scan To Read Allergies Active Allergy Reactions Criticality Noted Date Comments Prednisone 06/13/2022 Changes in mood/mean documented as of this encounter (statuses as of 11/05/2023) Medications Medication Sig Dispensed Refills Start Date End Date Status Naproxen Sodium 220 MG Oral Tablet Take 2 Tablets by mouth as needed for Pain. 06/13/2022 Active Aspirin 81 MG Oral Tablet Chewable Take 1 Tablet by mouth in the morning. with food.. 100 Tablet 5 08/13/2022 Active Betamethasone Dipropionate Aug 0.05 % External Cream (Diprolene AF)Indications:Other eczema Apply topically to affected area 2 times a day. To affected area. 15 g 3 03/26/2023 Active Atorvastatin Calcium 40 MG Oral Tablet (Lipitor)Indications :PVD (peripheral vascular disease) ([facility]),Renal artery stenosis, [place] ([facility]) Take 1 Tablet by mouth in the morning. 100 Tablet 3 06/15/2023 Active Cilostazol 100 MG Oral Tablet (Pletal) Take 1 Tablet by mouth in the morning and 1 Tablet before bedtime. 200 Tablet 3 06/15/2023 Active Rybelsus 3 MG Oral Tablet (Semaglutide) Take 3 mg by mouth daily first thing in the morning. 30 Tablet 5 11/04/2023 Active documented as of this encounter (statuses as of 11/05/2023) Active Problems Problem Noted Date Diagnosed Date Moderate depressive disorder 03/26/2023 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/18/2023 Renal artery stenosis, [place] 02/18/2023 Hyperlipidemia 01/13/2023 Cigarette smoker 09/03/2022 Status post carotid endarterectomy 09/03/2022 Carotid stenosis, non-symptomatic, bilateral 06/2022 S/P insertion of iliac artery stent 09/03/2022 PVD (peripheral vascular disease) 09/03/2022 Presence of stent in artery 09/03/2022 Diabetes mellitus with peripheral vascular disea se 08/13/2022 Spasm of muscle documented as of this encounter (statuses as of 11/05/2023) Resolved Problems Problem Noted Date Diagnosed Date Resolved Date Food insecurity 10/13/2022 02/12/2023 Overview: Per [facility] Protocol documented as of this encounter (statuses as of 11/05/2023) Immunizations Name Administration Dates Next Due Pneumococcal [...] Answer Date Recorded PHQ Adult Total Score 1 01/13/2023 Hunger Vital Sign Answer Date Recorded Within the past 12 months, y ou worried that your food would run out before you got the money to buy more. Never true 01/14/20 Within the past 12 months, t he food you bought just didn't last and you didn't have money to get more. Never true 01/13/2023 Childcare Answer Date Recorded Do you feel overwhelmed with taking care of a child, family member or friend? No 01/13/2023 Does your family need help f inding childcare? (Household - for ages 0-17 years) Not on file 01/13/2023 Clothing Answer Date Recorded Have you been unable to get clothing when it was really needed? No 01/13/2023 Is your family able to get c lothes or diapers when needed? (Household - for ages 0-17 years) Not on file 01/13/2023 Personal Safety Answer Date Recorded Do you feel unsafe or have concerns for your saf ety? No 01/13/2023 Do you have concerns for you r family's safety? (Household - for ages 0-17 years) Not on file 01/13/2023 Utilities Answer Date Recorded Do you have trouble paying y our heating, water, or electric bill? No 01/13/2023 Is your family able to pay t he heat, water, or electric bill? (Household - for ages 0-17 years) Not on file 01/13/2023 Does your family have access to good internet? (Household - for ages 0-17 years) Not on file 01/13/2023 Employment Status Answer Date Recorded Are you unemployed or without regular income? No 01/13/2023 Does the household have a re gular source of income? (Household - for ages 0-17 years) Not on file 01/13/2023 Social Connections Answer Date Recorded How often do you feel lonely or isolated from those around you? Sometimes 01/13/2023 Financial Resource Strain Answer Date R ecorded Do you have any trouble payi ng for your medications, or do you think you might in the future? No 01/13/2023 Does your family have troubl e paying for medicine? (Household - for ages 0-17 years) Not on file 01/13/2023 Transportation Needs Answer Date Record ed READ ONLY Do you have troubl e getting a ride to medical visits or work? Never True 01/13/2023 Does your family have a hard time getting a ride to doctors visits? (Household - for ages 0-17 years) Not on file 01/13/2023 Has lack of transportation k ept you from medical appointments, meetings, work, or from getting things needed for daily living? Check all that apply. (Adult - for ages 18 years and over) Not on file 01/13/2023 Do you (or your family) have trouble finding or paying for a ride (transportation)? (Household - for ages 0-17 years) Not on file 01/13/2023 Housing Stability Answer Date Recorded Do you currently live in a s helter or have no steady place to sleep at night? No 01/13/2023 READ ONLY Do you think you a re at risk of becoming homeless? No 01/13/2023 Does your family worry about paying for your home or becoming homeless? (Household - for ages 0-17 years) Not on file 1 03/15/2022 Are you homeless or worried that you might be in the future? (Adult - for ages 18 years and over) Not on file Are you (or your family) radha eless or worried that you might be in the future? (Household - for ages 0-17 years) Not on file Food Insecurity Answer Date Recorded Do you need food for this week? No 01/13/2023 Are you able to get enough f ood for your family? (Household - for ages 0-17 years) Not on file 01/13/2023 Does your family need food t his week? (Household - for ages 0-17 years) Not on file 01/13/2023 Do you always have enough fo od for your family? (Household - for ages 0-17 years) Not on file 01/13/2023 Sex and Gender Information Value Date Recorded Sex Assigned at Male 11/03/2023 7:57 AM EDT Gender Identity Male 11/03/2023 7:57 AM EDT Sexual Orientation Straight 11/03/2023 7: 57 AM EDT Job Start Date Occupation Industry Not on file Not on file Not on file documented as of this encounter Miscellaneous Notes * Telephone Encounter - Sarah Purdy [facility] - 11/05/2023 2:21 PM EDT Patient called in that [facility] wouldn't dispense bc they didn't have his PACE info. Called [facility] and provided them with PACENET ID [id number] Sarah Hargrove, Pharm D, BCACP Clinical Pharmacist [address] - Medication Therapy [facility] 11/05/2023, 2:21 PM Ph. [phone] * Telephone Encounter - Yanet Palumbo CCMA - 11/05/2023 11:57 AM EDT Pt contacted and made aware of the information. Told to patient to give us a call if there is any issues. * Addendum Note - Viki Rojas DO - 11/04/2023 3:52 PM EDTAddended by: VIKI ROJAS on: 11/04/2023 03:52 PM Modules accepted: Orders * Telephone Encounter - Viki Rojas DO - 11/04/2023 3:47 PM EDT Please let pt know that his retinal scans were normal. He was approved for PACENET per pharmacy reimbursement team. I have sent Rybelsus to the pharmacy for him. He needs to be sure to start this LYLE. * Telephone Encounter - Andres Calderon MD - 11/03/2023 12:47 PM EDT Retinal Scan Imaging [facility] [id number] Retinal Scan Interpretation: There is no retinopathy in both eyes Diabetes Retinal Imaging Care Plan: The retinal scan results are normal - I will forward this encounter to the Ophthalmology DM Letter Pool [[id number]], they will send a normal retinal scan letter to the patient, and the patient will be seen back for a yearly scan. Andres Calderon MD 11/03/2023 12:47 PM * Telephone Encounter - Antoinette Mehta RT (R) - 11/03/2023 9:18 AM EDT A Diabetic Telemed Eye image was taken and requires your interpretation for Dr Rojas. Please check your inbasket for image. [facility] * Telephone Encounter - Viki Rojas DO - 11/03/2023 8:54 AM EDT Please assess patient for PACE and Dino Nordisk for Rybelsus assistance. documented in this encounter Plan of Treatment Upcoming Encounters Date Type Department Care Team (Late st Contact Info) Description 11/16/2023 8:00 AM EDT Office Visit Family Practice [address], [place] [address] [place] [address] College, Pharmacist [address] [facility] [address] 02/15/2024 8:30 AM EST Imaging Vascular Lab, [facility], [place] [address] [facility] [place] [address] 02/15/2024 9:30 AM EST Imaging Vascular Lab, [address] [facility] [place] [address] 02/15/2024 10:30 AM EST Imaging Vascular Lab, [address], [place] [address] [facility] [place] [address] 02/15/2024 11:30 AM EST Imaging Vascular Lab, [address], [place] [address] [facility] [address] 02/18/2024 8:00 AM EST Office Visit Family Practice [address], [place] [address] [place] [address] Viki Rojas DO 293 [facility] [place] [address] 03/16/2024 8:30 AM EST Office Visit Vascular Surgery, [facility] [address] [facility] [place] [address] Diego Rangel MD [address] [place] [address] Health Maintenance Due Date Last Done Comments Cologuard 08/13/1995 Colonoscopy 08/13/1995 Colorectal Cancer Screening 08/13/1995 Fecal Occult Blood Test 08/13/1995 Sigmoidoscopy 08/13/1995 Lung Cancer Screening 2000 Adult Wellness Visit 2016 *BASELINE EKG FOR HTN 08/15/2022 COVID-19 Vaccine ( season) 2023 Depression Monitoring 01/14/2024 01/13/2023 HbA1c 03/31/2024 09/29/2023, 03/03, 06/13/2022, Additional history exists Albumin/Creatinine Ratio 09/28/2024 09/29/2023, 07/31 GFR 09/28/2024 09/29/2023, 03/03, 08/13/2022, Additional history exists DISCUSS TOBACCO CESSATION (REFER TO SMARTSET #3291) 11/02/2024 11/03/2023 (Discussed) Diabetic Eye Exam 11/02/2024 11/03/2023, 08/13/2022 Diabetic Foot Exam 11/02/2024 11/03/2023, 08/13/2022 DTap/Tdap Vaccines (2 - Td or Tdap) 05/14/2028 05/14/2018 Pneumococcal Vaccine: 65+ Years Completed 08/13/2022, 01/22/2016 Zoster Vaccines Completed [...] filedocumented as of this encounter Care Teams Rivet Driver Relationship Specialty Start Date End Date Viki Rojas DO [address] [place] [address] PCP - General Family Medicine 09/29/23 documented as of this encounter
--- OUTSIDE RECORDS SUMMARY | 2024-04-12 06:53 | External Medical Summary | Summary of Care ---
Author Name Unknown Organization [facility] Address [address] [place] [address] Phone [phone] Care Team Providers Care Clerk Stenographer Name Role Phone Viki Rojas DO Primary Care Provider Reason for Visit * Reason Onset Date Comments Advice 11/03/2023 Scan To Read 11/03/2023 Encounter Details Date Type Department Care Team (Late st Contact Info) Description 11/03/2023 Telephone Family Practice [address], [place] [address] [place] [phone] Viki Rojas DO [address] [place] [address] Advice; Scan To Read Allergies Active Allergy [...] (Lipitor)Indications :PVD (peripheral vascular disease) ([facility]),Renal artery stenosis, [place] ([facility]) Take 1 Tablet by mouth in [...] mesenteric artery stenosis 02/18/2023 Renal artery stenosis, [place] 02/18/2023 Hyperlipidemia 01/13/2023 Cigarette smoker 09/03/2022 Status [...] encounter Miscellaneous Notes * Telephone Encounter - Yanet Palumbo CCMA [...] scans were normal. He was approved for TripShake per pharmacy reimbursement team. I have sent Rybelsus to the pharmacy for him. He needs to be sure to start this LYLE. * Telephone Encounter - Andres Calderon MD - 11/03/2023 12:47 PM EDT Retinal Scan Imaging [facility] [id number] Retinal Scan Interpretation: There is no retinopathy in both eyes Diabetes Retinal Imaging Care Plan: The retinal scan results are normal - I will forward this encounter to the Ophthalmology DM Letter Pool [[id number]], they will send a normal retinal scan [...] image. Patient prefers to be seen at [facility] if a follow-up appointment is needed. * Telephone Encounter - Viki Rojas DO - 11/03/2023 8:54 AM EDT Please assess patient for [employer] and [employer] for Flirqs assistance. documented in this encounter Plan of Treatment Upcoming Encounters Date Type Department Care Team (Late st Contact Info) Description 11/16/2023 8:00 AM EDT Office Visit [address] [place] [address] College, Pharmacist [address] [place] [address], [place] [address] 02/15/2024 8:30 AM EST Imaging Vascular Lab, [facility], [place] [address] [facility] [place] [address] 02/15/2024 9:30 AM EST Imaging Vascular Lab, [facility], [place] [address] [facility] [place] [address] 02/15/2024 10:30 AM EST Imaging Vascular Lab, [facility], [place] [address] [facility] [place] [address] 02/15/2024 11:30 AM EST Imaging Vascular Lab, [facility], [place] [address] [facility] [place] [address] 02/18/2024 8:00 AM EST Office Visit [address] [place] [address] Viki Rojas DO 293 [facility] [place] [address] 03/16/2024 8:30 AM EST Office Visit Vascular Surgery, [facility] [address] [place] [address] Diego Rangel MD [address] [facility] [address] Health Maintenance Due Date Last Done Comments [...] exists DISCUSS TOBACCO CESSATION (REFER TO SMARTSET #5305) 11/02/2024 11/03/2023 (Discussed) Diabetic Eye Exam 11/02/2024 [...] filedocumented as of this encounter Care Teams Clerk Stenographer Relationship Specialty Start Date End Date Viki Rojas DO [address] [place] [address] PCP - General Family Medicine 09/29/23 documented as of this encounter
--- OUTSIDE RECORDS SUMMARY | 2024-04-12 06:53 | External Medical Summary | Summary of Care ---
Author Name Unknown Organization [facility] Address [address] [place] [address] Phone [phone] Care Team Providers Care Station Supervisor Name Role Phone Viki Rojas DO Primary Care Provider [phone] Reason for Visit * Reason Onset Date Comments Advice 11/03/2023 Scan To Read 11/03/2023 Encounter Details Date Type Department Care Team (Late st Contact Info) Description 11/03/2023 Telephone Family Practice [address], [place] [address] [place] [phone] Viki Rojas DO [address] [place] [address] Advice; Scan To Read Allergies Active Allergy Reactions Criticality Noted Date Comments Prednisone 06/13/2022 Changes in mood/mean documented as of this encounter (statuses as of 11/04/2023) Medications Medication Sig Dispensed Refills Start Date [...] Oral Tablet (Lipitor)Indications :PVD (peripheral vascular disease) ([facility]),Renal artery stenosis, [place] ([facility]) Take 1 Tablet by mouth in the [...] as of this encounter (statuses as of 11/04/2023) Active Problems Problem Noted Date Diagnosed Date Moderate depressive disorder 03/26/2023 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/18/2023 Renal artery stenosis, [place] 02/18/2023 Hyperlipidemia 01/13/2023 Cigarette smoker 09/03/2022 Status post carotid endarterectomy 09/03/2022 Carotid stenosis, non-symptomatic, bilateral 06/2022 S/P insertion of iliac artery stent 09/03/2022 PVD (peripheral vascular disease) 09/03/2022 Presence of stent in artery 09/03/2022 Diabetes mellitus with peripheral vascular disea se 08/13/2022 Spasm of muscle documented as of this encounter (statuses as of 11/04/2023) Resolved Problems Problem Noted Date Diagnosed Date Resolved Date Food insecurity 10/13/2022 02/12/2023 Overview: Per [facility] Protocol documented as of this encounter (statuses as of 11/04/2023) Immunizations Name Administration Dates Next Due Pneumococcal [...] encounter Miscellaneous Notes * Addendum Note - Viki Rojas DO [...] PM EDT Retinal Scan Imaging [facility] [id number] Retinal Scan Interpretation: There is no retinopathy in both eyes Diabetes Retinal Imaging Care Plan: The retinal scan results are normal - I will forward this encounter to the Ophthalmology DM Letter Pool [[id number]], they will send a normal retinal scan [...] image. Patient prefers to be seen at [facility] if a follow-up appointment is needed. * Telephone Encounter - Viki Rojas DO - 11/03/2023 8:54 AM EDT Please assess patient for PACE and [employer] for Rybelsus assistance. documented in this encounter Plan of Treatment Upcoming Encounters Date Type Department Care Team (Late st Contact Info) Description 11/16/2023 8:00 AM EDT Office Visit Family Practice 65 [facility] 293 [facility] [place] [address] College, Pharmacist [address] [place] [address] 02/15/2024 8:30 AM EST Imaging Vascular Lab, [facility], [place] [address] [facility] [place] [address] 02/15/2024 9:30 AM EST Imaging Vascular Lab, [facility], [place] 132 [facility] [place] [address] 02/15/2024 10:30 AM EST Imaging Vascular Lab, [facility] [facility], [place] [address] [facility] [place] [address] 02/15/2024 11:30 AM EST Imaging Vascular Lab, [facility] [facility], [place] [address] [facility] [place] [address] 02/18/2024 8:00 AM EST Office Visit Family [facility] 65 [facility] 293 [facility], [place] [address] Viki Rojas DO 293 [facility], [place] [address] 03/16/2024 8:30 AM EST Office Visit Vascular Surgery, [facility] [address] [place] [address] Diego Rangel MD [address] [facility] [place] [address] Health Maintenance Due Date Last Done Comments Cologuard 08/13/1995 Colonoscopy 08/13/1995 Fecal Occult Blood Test 08/13/1995 Sigmoidoscopy 08/13/1995 Adult Wellness Visit 2016 *BASELINE EKG FOR HTN 08/15/2022 COVID-19 Vaccine (24 season) 2023 Postponed from 11/01/2023 (Unavailable) Colorectal Cancer Screening 11/04/2023 Postponed from 08/13/1995 (Patient Declined After Education) Lung Cancer Screening 11/04/2023 Postpo munira from 2000 (Patient Declined After Education) Depression Monitoring 01/14/2024 01/13/2023 HbA1c 03/31/2024 09/29/2023, 03/03, 06/13/2022, Additional history exists Albumin/Creatinine Ratio 09/28/2024 09/29/2023, 07/31 GFR 09/28/2024 09/29/2023, 03/03, 08/13/2022, Additional history exists DISCUSS TOBACCO CESSATION (REFER TO SMARTSET #9171) 11/02/2024 11/03/2023 (Discussed) Diabetic Eye Exam 11/02/2024 11/03/2023, 08/13/2022 Diabetic Foot Exam 11/02/2024 11/03/2023, 08/13/2022 DTap/Tdap Vaccines (2 - Td or Tdap) 05/14/2028 05/14/2018 Pneumococcal Vaccine: 65+ Years Completed 08/13/2022, 01/22/2016 Zoster Vaccines Completed 08/13/2022, 05/31, 01/15/2015 AAA Screening Completed 11/24/2022, 07/08/2022 Influenza Vaccine (FLU shot) Completed 11/03/2023, 01/13/2023, 01/22/2016, Additional history exists HPV (Gardasil) [...] filedocumented as of this encounter Care Teams Station Supervisor Relationship Specialty Start Date End Date Viki Rojas DO [address] [place] [address] PCP - General Family Medicine 09/29/23 documented as of this encounter
--- OUTSIDE RECORDS SUMMARY | 2024-04-12 06:53 | External Medical Summary ---
Author Name Unknown Address Unknown Organization K01:[facility] [place] [address] [facility] [address] Laboratory Report Ordering Provider Test Date Status CRYSTAL STAHL 02/18/2024 08:35:55 Final Observation Date Value Abnormality Reference (Units ) Status HbA1C 02/18/2024 08:35:55 8.4 Above high normal 4. 0-5.6 (%) Final The use of HbA1c to monitor glycemic status is based on normal hemoglobin and HbA composition. This test should not be used in patients with abnormal hemoglobin that affects the half life of the red blood cell or the in vivo glycation rates. Glucose, estimated average 02/18/2024 08:35:55 194 Above high normal <126 (mg/dL) Jorge solis Performing Location [facility] [address] [facility] [address]
--- OUTSIDE RECORDS SUMMARY | 2024-04-12 06:53 | External Medical Summary | Summary of Care ---
Author Name Unknown Organization [facility] Address [address] [place] [address] Phone [phone] Care Team Providers Care Live Study Manager Name Role Phone Viki Cage DO Primary Care Provider Encounter Details Date Type Department Care Team (Late st Contact Info) Description 03/22/2024 Population Health External Data Unspecified Department Allergies Active Allergy Reactions Criticality Noted Date Comments Prednisone 06/13/2022 Changes in mood/mean documented as of this encounter (statuses as of 03/22/2024) Medications Naproxen Sodium 220 MG Oral Tablet Take 2 Tablets by mouth as needed for Pain. 3 Active Aspirin 81 MG Oral Tablet Chewable Take 1 Tablet by mouth in the morning. with food.. 100 Tablet 5 3 Active Rybelsus 3 MG Oral Tablet (Semaglutide) Take 3 mg by mouth daily first thing in the morning. 30 Tablet 5 4 Active Atorvastatin Calcium 40 MG Oral Tablet (Lipitor)Indicati ons:PVD (peripheral vascular disease) ([facility]),Renal artery stenosis, [place] ([facility]) Take 1 Tablet by mouth in [...] day as needed for Cough. 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 Renal artery stenosis, [place] 02/18/2023 Hyperlipidemia 01/13/2023 Cigarette smoker 09/03/2022 Status post carotid endarterectomy 09/03/2022 Carotid stenosis, non-symptomatic, bilateral 06/2022 S/P insertion of iliac artery stent 09/03/2022 PVD (peripheral vascular disease) 09/03/2022 Presence of stent in artery 09/03/2022 Diabetes mellitus with peripheral vascular disea se 08/13/2022 Spasm of muscle documented as of this encounter (statuses as of 03/22/2024) Resolved Problems Problem Noted Date Diagnosed Date Resolved Date Food insecurity 10/13/2022 02/12/2023 Overview: Per [facility] Protocol documented as of this encounter (statuses as of 03/22/2024) Immunizations Name Administration Dates Next Due Pneumococcal [...] AM EDT documented as of this encounter Plan of Treatment Upcoming Encounters Date Type Department Care Team (Late st Contact Info) Description 05/11/2024 10:50 AM EDT Office Visit Vascular Surgery, [facility] [address] [place] [address] Diego Rangel MD [address] [facility] [place] [address] 05/13/2024 8:00 AM EDT Office Visit Family Practice [address], [place] [address] [place] [address] Viki Cage DO [address] [place] [address] Health Maintenance Due Date Last Done Comments Cologuard 08/13/1995 Colonoscopy 08/13/1995 Colorectal Cancer Screening 08/13/1995 Fecal Occult Blood Test 08/13/1995 Sigmoidoscopy 08/13/1995 Lung Cancer Screening 2000 Adult Wellness Visit 2016 *BASELINE EKG FOR HTN 08/15/2022 COVID-19 Vaccine ( season) 2023 HbA1c 08/18/2024 02/18/2024, 09/01, 03/26/2023, Additional history exists Albumin/Creatinine Ratio 09/28/2024 09/29/2023, 07/31 DISCUSS TOBACCO CESSATION (REFER TO SMARTSET #4172) 11/02/2024 11/03/2023 (Discussed) Diabetic Foot Exam 11/02/2024 [...] filedocumented as of this encounter Care Teams Live Study Manager Relationship Specialty Start Date End Date Viki Cage DO [address] [place] [address] PCP - General Family Medicine 09/29/23 documented as of this encounter
--- OUTSIDE RECORDS SUMMARY | 2024-04-12 06:53 | External Medical Summary ---
Author Name Unknown Address Unknown Organization K01:[facility] [place] - [address] [place] [address] Laboratory Report Ordering Provider Test Date Status CRYSTAL STAHL 02/18/2024 08:35:55 Final Observation Date Value Abnormality Reference (Units ) Status BUN 02/18/2024 08:35:55 19 6-20 (mg/dL) Final Creatinine 02/18/2024 08:35:55 1.0 0.6-1.2 (mg/dL) Final Glomerular filtration rate/1.73 sq M.predicted [Volume Rate/Area] in Serum, Plasma or Blood by Creatinine-based formula (CKD-EPI) 02/18/2024 08:35:55 80 >=60 (mL/min) Final eGFR is calculated based on the CKD-EPI 2020 equation. Sodium 02/18/2024 08:35:55 137 135-146 (m mol/L) Final Potassium 02/18/2024 08:35:55 5.0 3.5-5.1 (m mol/L) Final Cl 02/18/2024 08:35:55 103 98-107 (mm ol/L) Final CO2 02/18/2024 08:35:55 23 22-32 (mmo l/L) Final Anion gap 02/18/2024 08:35:55 11 7-15 (mmol /L) Final Glucose 02/18/2024 08:35:55 308 Above high normal 70 -120 (mg/dL) Final Calcium 02/18/2024 08:35:55 9.5 8.4-10.2 ( mg/dL) Final Performing Location [facility] - [address] [place] [address]
--- OUTSIDE RECORDS SUMMARY | 2024-04-12 06:53 | External Medical Summary | Summary of Care ---
Author Name Unknown Organization [facility] Address [address] [place] [address] Phone [phone] Care Team Providers Care Spreader Name Role Phone Viki Cage DO Primary Care Provider Reason for Visit * Reason Onset Date Comments Test Results 10/07/202310/06, 10/08 Encounter Details Date Type Department Care Team (Late st Contact Info) Description 10/07/2023 Telephone Family Practice [address], [place] [address] [place] [phone] Viki Cage DO [address] [place] [address] Test Results (10/06, 10/08) Allergies Active Allergy Reactions Criticality Noted Date Comments Prednisone 06/13/2022 Changes in mood/mean documented as of this encounter (statuses as of 01/06/2024) Medications Medication Sig Dispensed Refills Start Date End Date Status Naproxen Sodium 220 MG Oral Tablet Take 2 Tablets by mouth as needed for Pain. 06/13/2022 Active Aspirin 81 MG Oral Tablet Chewable Take 1 Tablet by mouth in the morning. with food.. 100 Tablet 5 08/13/2022 Active Betamethasone Dipropionate Aug 0.05 % External Cream (Diprolene AF)Indications:Oth er eczema Apply topically to affected area 2 times a day. To affected area. 15 g 3 03/26/2023 Active Cilostazol 100 MG Oral Tablet (Pletal) Take 1 Tablet by mouth in the morning and 1 Tablet before bedtime. 200 Tablet 3 06/15/2023 Active Atorvastatin Calcium 40 MG Oral Tablet (Lipitor)Indicatio ns:PVD (peripheral vascular disease) (HCC),Renal artery stenosis, [place] (HCC) Take 1 Tablet by mouth in the morning. 100 Tablet 3 06/15/2023 4 Discontinued (Refill) Empagliflozin 10 MG Oral Tablet (Jardiance) Take 1 Tablet by mouth in the morning. 100 Tablet 3 06/15/2023 4 Discontinued (Medication List Clean Up) Clindamycin HCl 300 MG Oral CapsuleIndications :Dental abscess Take 1 Capsule by mouth in the morning and 1 Capsule at noon and 1 Capsule in the evening and 1 Capsule before bedtime. Do all this for 10 days. 40 Capsule 09/29/2023 4 SITagliptin Phosphate 100 MG Oral Tablet (Januvia) Take 1 Tablet by mouth in the morning. 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 Renal artery stenosis, [place] 02/18/2023 Hyperlipidemia 01/13/2023 Cigarette smoker 09/03/2022 Status post carotid endarterectomy 09/03/2022 Carotid stenosis, non-symptomatic, bilateral 06/2022 S/P insertion of iliac artery stent 09/03/2022 PVD (peripheral vascular disease) 09/03/2022 Presence of stent in artery 09/03/2022 Diabetes mellitus with peripheral vascular disea se 08/13/2022 Spasm of muscle documented as of this encounter (statuses as of 01/06/2024) Resolved Problems Problem Noted Date Diagnosed Date Resolved Date Food insecurity 10/13/2022 02/12/2023 Overview: Per [facility] Protocol documented as of this encounter (statuses as of 01/06/2024) Immunizations Name Administration Dates Next Due Pneumococcal Conjugate Vacc, 13 Valent (Prevnar) 01/22/2016 Pneumococcal Polysaccharide PPV23 (Pneumovax) RSV Vac., Bivalent, Perfusion F, Pf,0.5 Ml (Abry svo) 03/26/2023 Seasonal Influenza Virus Vac cine, Unspecified Formulation 01/22/2016,01/15/2015 Seasonal Influenza, Quadrivalent Hd (Fluzone Hd) 01/13/2023 [...] encounter Miscellaneous Notes * Telephone Encounter - Dee Morillo LPN - 10/09/2023 2:23 PM EDT Called, not able to reach. Voicemail is not set up, will continue to try to call. Thank you * Telephone Encounter - Viki Cage DO - 10/09/2023 8:45 AM EDT I am going to send another oral medication. This will not likely control his sugars but should helpsome given how high they are. Order in. He should call with any issue. We are trying to keep him from needing insulin so it is important he think about the once a week injectable and taking the oral m edication. Serum creatinine: 1 mg/dL 09/29/23 0843 Estimated creatinine clearance: 57.8 mL/min * Telephone Encounter - Maricel Alejo LPN - 10/07/2023 11:47 AM EDT Call placed to patient. He has not found a dentist that will see him yet. Stated the antibiotic helped a lot. States he will try [facility] to see if he can get an appointment there. Pt states he is not willing to meet with or try an injectable medication at this time. He would like to discuss it in person with Dr. Cage at his appt on 11/02. Advised to contact the office if he changes his mind. * Telephone Encounter - Viki Cage DO - 10/07/2023 7:50 AM EDT Please call pt: How is his tooth? Was he able to get in with a dentist? His sugars are very uncontrolled. Is he willing to work with and use an injectable medication? documented in this encounter Plan of Treatment Upcoming Encounters Date Type Department Care Team (Late st Contact Info) Description 02/15/2024 8:30 AM EST Imaging Vascular Lab, [address] [facility] [address] 02/15/2024 9:30 AM EST Imaging Vascular Lab, [address] [place] [address] 02/15/2024 10:30 AM EST Imaging Vascular Lab, [address] [facility] [place] [address] 02/15/2024 11:30 AM EST Imaging Vascular Lab, [address] [facility] [place] [address] 02/18/2024 8:00 AM EST Office Visit Family Practice [address], [place] [facility] [phone] [facility] [address] [facility] [address] 03/16/2024 8:30 AM EST Office Visit Vascular Surgery, [facility] [address] [facility] [place] [address] Diego Rangel MD [address] [place] [address] Health Maintenance Due Date Last Done Comments [...] 12/17/2024 12/18/2023, , 11/03/2023, Additional history exists DTap/Tdap Vaccines (2 - [...] filedocumented as of this encounter Care Teams Spreader Relationship Specialty Start Date End Date Viki Cage DO [address] [place] [address] PCP - General Family Medicine 09/29/23 documented as of this encounter
--- OUTSIDE RECORDS SUMMARY | 2024-04-12 06:53 | External Medical Summary | Summary of Care ---
Author Name Unknown Organization [facility] Address [address] [place] [address] Phone [phone] Care Team Providers Care Clinical Nursing Director Name Role Phone Viki Cage DO Primary Care Provider [phone] Reason for Visit * Reason Onset Date Comments Other 12/15/2023 Encounter Details Date Type Department Care Team (Late st Contact Info) Description 12/15/2023 Telephone Family Practice [address], [place] [address] [place] [address] Viki Cage DO [address] [place] [address] Other Allergies Active Allergy Reactions Criticality Noted Date Comments Prednisone 06/13/2022 Changes in mood/mean documented as of this encounter (statuses as of 12/15/2023) Medications Medication Sig Dispensed Refills Start Date [...] Oral Tablet (Lipitor)Indications :PVD (peripheral vascular disease) (HCC),Renal artery stenosis, [place] (HCC) Take 1 Tablet by mouth in [...] as of this encounter (statuses as of 12/15/2023) Active Problems Problem Noted Date Diagnosed Date Moderate depressive disorder 03/26/2023 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/18/2023 Renal artery stenosis, [place] 02/18/2023 Hyperlipidemia 01/13/2023 Cigarette smoker 09/03/2022 Status post carotid endarterectomy 09/03/2022 Carotid stenosis, non-symptomatic, bilateral 06/2022 S/P insertion of iliac artery stent 09/03/2022 PVD (peripheral vascular disease) 09/03/2022 Presence of stent in artery 09/03/2022 Diabetes mellitus with peripheral vascular disea se 08/13/2022 Spasm of muscle documented as of this encounter (statuses as of 12/15/2023) Resolved Problems Problem Noted Date Diagnosed Date Resolved Date Food insecurity 10/13/2022 02/12/2023 Overview: Per [facility] Protocol documented as of this encounter (statuses as of 12/15/2023) Immunizations Name Administration Dates Next Due Pneumococcal [...] encounter Miscellaneous Notes * Telephone Encounter - Dayanna Urbina OSA - 12/15/2023 3:46 PM EDT Contacted [facility]. Pt is scheduled with Dr Rivera at the location on 12.17.24 at 10:45 am. Ptis aware of appt * Telephone Encounter - No Sanchez OSA - 12/15/2023 10:54 AM EDT Pt called to confirm appt with Ophthalmology for this Thursday. I do not see any appt with them in chart. Pt is adamant that it was scheduled for [facility]. Please advise. documented in this encounter Plan of Treatment Upcoming Encounters Date Type Department Care Team (Late st Contact Info) Description 02/15/2024 8:30 AM EST [facility] [address] [facility] [address] 02/15/2024 9:30 AM EST Imaging Vascular Lab, [address] 132 [facility] [place] [address] 02/15/2024 10:30 AM EST Imaging Vascular Lab, [address] 132 [facility] [place] [address] 02/15/2024 11:30 AM EST Imaging Vascular Lab, [address] 132 [facility] [place] [address] 02/18/2024 8:00 AM EST Office Visit Family Practice [address], [place] 293 [facility], [place] [address] Viki Cage DO [address] [place] [address] 03/16/2024 8:30 AM EST Office Visit Vascular Surgery, [facility] [address] [place] [address] Diego Rangel MD [address] [place] [address] Health Maintenance Due Date Last Done [...] exists DISCUSS TOBACCO CESSATION (REFER TO SMARTSET #[id number]) 11/02/2024 11/03/2023 (Discussed) Diabetic Eye Exam 11/02/2024 [...] filedocumented as of this encounter Care Teams Clinical Nursing Director Relationship Specialty Start Date End Date Viki Cage DO [address] [place] [address] PCP - General Family Medicine 09/29/23 documented as of this encounter
--- OUTSIDE RECORDS SUMMARY | 2024-04-12 06:53 | External Medical Summary | Summary of Care ---
Author Name Unknown Organization [facility] Address [address] [place] [address] Phone [phone] Care Team Providers Care Senior Data Modeler Name Role Phone Viki Rojas DO Primary Care Provider [phone] Reason for Visit * Reason Onset Date Comments Medication Refill 01/05/2024 Encounter Details Date Type Department Care Team (Late st Contact Info) Description 01/05/2024 Refill Family Practice [address], [place] [address] [place] [address] Viki Rojas DO [address] [place] [address] PVD (peripheral vascular disease) ([facility]); Renal artery stenosis, [place] ([facility]) Allergies Active Allergy Reactions Criticality Noted Date [...] the morning. 30 Tablet 5 11/04/2023 Active Atorvastatin Calcium 40 MG Oral Tablet (Lipitor)Indicatio ns:PVD (peripheral vascular disease) (HCC),Renal artery stenosis, [place] (HCC) Take 1 Tablet by mouth in the morning. 100 Tablet 3 01/06/2024 Active Atorvastatin Calcium 40 MG Oral Tablet (Lipitor)Indicatio ns:PVD (peripheral vascular disease) (HCC),Renal artery stenosis, [place] (HCC) Take 1 Tablet by mouth in the morning. 100 Tablet 3 06/15/2023 Discontinue d(Refill) documented as of this encounter (statuses as of 01/06/2024) Active Problems Problem Noted Date Diagnosed Date Moderate depressive disorder 03/26/2023 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/18/2023 Renal artery stenosis, [place] 02/18/2023 Hyperlipidemia 01/13/2023 Cigarette smoker 09/03/2022 Status [...] encounter Miscellaneous Notes * Telephone Encounter - Patricio Davila [facility] - 01/06/2024 2:20 PM EST Signed Prescriptions: Disp Refills Atorvastatin Calcium 40 MG Oral Tablet (Li*100 Ta*3 Sig: Take 1 Tablet by mouth in the morning.Authorizing Provider: VIKI ROJAS User: PATRICIO DAVILA * Telephone Encounter - Patricio Davila [facility] - 01/06/2024 2:11 PM EST Signed Prescriptions: Disp Refills Atorvastatin Calcium 40 MG Oral Tablet (Li*100 Ta*3 Sig: Take 1 Tablet by mouth in the morning. Authorizing Provider: VIKI ROJAS User: PATRICIO DAVILA * Telephone Encounter - Ale Bucio, [employer] pumping supervisor - 01/05/2024 8:33 AM EST Please reroute Rx to [facility] [address] Pending Prescriptions: Disp Refills Atorvastatin Calcium 40 MG Oral Tablet (L*100 Ta*3 Sig: Take 1 Tablet by mouth in the morning. Last Visit: 11/03/2023 (in office), 09/29/2023 (telemedicine) 02/18/2024 If no future appointments scheduled, and last appointment is greater than a year ago, please schedule patient for a follow-up appointment Last date the medication was ordered: 06-15-23 Patient Phone Numbers Labs: Lab Results Component Value Date/Time CREAT 1.0 09/29/2023 08:43 AM CREAT 0.8 01/02/2004 03:14 PM POTASSIUM 5.0 09/29/2023 08:43 AM POTASSIUM 4.1 01/02/2004 03:14 PM TSH 0.84 06/13/2022 03:45 PM LDL 54 09/29/2023 08:43 AM ALT 39 09/29/2023 08:43 AM ALT 30 01/02/2004 03:14 PM HGBA1C 8.9 (H) 09/29/2023 08:43 AM HGBA1C 5.6 01/02/2004 03:14 PM documented in this encounter Plan of Treatment Upcoming Encounters Date Type Department Care Team (Late st Contact Info) Description 02/15/2024 8:30 AM EST Imaging Vascular Lab, [facility], [address] [place] [address] 02/15/2024 9:30 AM EST Imaging Vascular Lab, [facility], [address] [place] [address] 02/15/2024 10:30 AM EST Imaging Vascular Lab, [facility], [address] [place] [address] 02/15/2024 11:30 AM EST Imaging Vascular Lab, [facility] 2[facility], [place] [address] [place] [address] 02/18/2024 8:00 AM EST Office Visit Family Practice [address], [place] 293 [place] [address] Viki Rojas DO 293 [place] [address] 03/16/2024 8:30 AM EST Office Visit Vascular Surgery, [facility] 132 [facility] [place] [address] Diego [facility]angel [facility] [address] [facility] [address] Health Maintenance Due Date Last Done Comments [...] exists DISCUSS TOBACCO CESSATION (REFER TO SMARTSET #0206) 11/02/2024 11/03/2023 (Discussed) Diabetic Foot Exam 11/02/2024 [...] as of this encounter Visit Diagnoses Diagnosis PVD (peripheral vascular disease) (HCC) Peripheral vascular disease, unspecified Renal artery stenosis, [place] (HCC) Atherosclerosis of renal artery documented in this encounter Care Teams Senior Data Modeler Relationship Specialty Start Date End Date Viki Rojas DO 293 [place] [address] PCP - General Family Medicine 09/29/23 documented as of this encounter
--- OUTSIDE RECORDS SUMMARY | 2024-04-12 06:53 | External Medical Summary | Summary of Care ---
Author Name Unknown Organization [facility] Address [address] [place] [address] Phone [phone] Care Team Providers Care Form Tamper Name Role Phone Viki Cage DO Primary Care Provider Reason for Visit * Reason Onset Date Comments Other 03/15/2024 medication Advice 03/15/202403/17 Encounter Details Date Type Department Care Team (Late st Contact Info) Description 03/15/2024 Telephone Family Practice [address], [place] [address] [place] [address] Viki Cage DO [address] [place] [address] Other (medication); Advice (03/17) Allergies Active Allergy Reactions Criticality Noted Date Comments Prednisone 06/13/2022 Changes in mood/mean documented as of this encounter (statuses as of 03/17/2024) Medications Naproxen Sodium 220 MG Oral Tablet [...] ons:PVD (peripheral vascular disease) (HCC),Renal artery stenosis, [place] (HCC) Take 1 Tablet by mouth in [...] needed for Cough. 30 Capsule 5 Active documented as of this encounter (statuses as of 03/17/2024) Active Problems Problem Noted Date Diagnosed Date Moderate depressive disorder 03/26/2023 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/18/2023 Renal artery stenosis, [place] 02/18/2023 Hyperlipidemia 01/13/2023 Cigarette smoker 09/03/2022 Status post carotid endarterectomy 09/03/2022 Carotid stenosis, non-symptomatic, bilateral 06/2022 S/P insertion of iliac artery stent 09/03/2022 PVD (peripheral vascular disease) 09/03/2022 Presence of stent in artery 09/03/2022 Diabetes mellitus with peripheral vascular disea se 08/13/2022 Spasm of muscle documented as of this encounter (statuses as of 03/17/2024) Resolved Problems Problem Noted Date Diagnosed Date Resolved Date Food insecurity 10/13/2022 02/12/2023 Overview: Per [facility] Protocol documented as of this encounter (statuses as of 03/17/2024) Immunizations Name Administration Dates Next Due Pneumococcal [...] Telephone Encounter - Dee Morillo LPN - 03/17/2024 4:38 PM EST Called cell phone number. She will left message know * Telephone Encounter - Maricel Alejo LPN - 03/17/2024 12:12 PM EST Call placed to patient - no answer. Message left to return call to [phone]. * Telephone Encounter - Viki Cage DO - 03/17/2024 7:42 AM EST Sent lanette galdamez to pharmacy. OV if cough persists. * Telephone Encounter - Dee Morillo LPN - 03/15/2024 1:26 PM EST Patient has not done a home covid swab. Has no fever or chills, headache from coughing so much. Going on for two weeks. Not able to come to office states he will be in [place]. Thank you Has not tried anything offered to try mucinex, states no I don't like that stuff * Telephone Encounter - Gauri Hernandez OSA - 03/15/2024 10:28 AM EST Pt called and states he has been sick for last 2 wks Symptoms cough, mucus, headaches from coughing, can't sleep at nite No fever Pt not taking anything for illness [facility]acy [facility] Please advise [phone] documented in this encounter Plan of Treatment Upcoming Encounters Date Type Department Care Team (Late st Contact Info) Description 05/11/2024 10:50 AM EDT Office Visit Vascular Surgery, [facility] 132 [employer] [place] [address] Diego Rangel MD [address] [place], [place] [id number] 05/13/2024 8:00 AM EDT Office Visit Family Practice [address], [place] [address] [place] [address] Viki Cage DO [address] [place] [address] Health Maintenance Due Date Last Done Comments Cologuard 08/13/1995 Colonoscopy 08/13/1995 Colorectal Cancer Screening 08/13/1995 Fecal Occult Blood Test 08/13/1995 Sigmoidoscopy 08/13/1995 Lung Cancer Screening 2000 Adult Wellness Visit 2016 *BASELINE EKG FOR HTN 08/15/2022 COVID-19 Vaccine ( season) 2023 HbA1c 08/18/2024 02/18/2024, 09/01, 03/26/2023, Additional history exists Albumin/Creatinine Ratio 09/28/2024 09/29/2023, 07/31 DISCUSS TOBACCO CESSATION (REFER TO SMARTSET #0576) 11/02/2024 11/03/2023 (Discussed) Diabetic Foot Exam 11/02/2024 [...] filedocumented as of this encounter Care Teams Form Tamper Relationship Specialty Start Date End Date Viki Cage DO 293 [place] [address] PCP - General Family Medicine 09/29/23 documented as of this encounter
--- OUTSIDE RECORDS SUMMARY | 2024-04-12 06:53 | External Medical Summary | Summary of Care ---
Author Name Unknown Organization [facility] Address [address] [place] [address] Phone [phone] Care Team Providers Care Sports Reporter Name Role Phone Viki Cage DO Primary Care Provider [phone] Reason for Visit * Reason Onset Date Comments Referral 11/11/2023 Diabetes Encounter Details Date Type Department Care Team (Late st Contact Info) Description 11/11/2023 Telephone [facility] Services, [facility] [address] [place] [address] [place] [address] [place], Pharmacist [address] [place], [place] [address] [address] Referral (Diabetes/) Allergies Active Allergy Reactions Criticality Noted Date Comments Prednisone 06/13/2022 Changes in mood/mean documented as of this encounter (statuses as of 11/11/2023) Medications Medication Sig Dispensed Refills Start Date [...] :PVD (peripheral vascular disease) (HCC),Renal artery stenosis, [place] (HCC) Take 1 Tablet by mouth in [...] as of this encounter (statuses as of 11/11/2023) Active Problems Problem Noted Date Diagnosed Date Moderate depressive disorder 03/26/2023 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/18/2023 Renal artery stenosis, [place] 02/18/2023 Hyperlipidemia 01/13/2023 Cigarette smoker 09/03/2022 Status post carotid endarterectomy 09/03/2022 Carotid stenosis, non-symptomatic, bilateral 06/2022 S/P insertion of iliac artery stent 09/03/2022 PVD (peripheral vascular disease) 09/03/2022 Presence of stent in artery 09/03/2022 Diabetes mellitus with peripheral vascular disea se 08/13/2022 Spasm of muscle documented as of this encounter (statuses as of 11/11/2023) Resolved Problems Problem Noted Date Diagnosed Date Resolved Date Food insecurity 10/13/2022 02/12/2023 Overview: Per [facility] Protocol documented as of this encounter (statuses as of 11/11/2023) Immunizations Name Administration Dates Next Due Pneumococcal [...] Notes * Telephone Encounter - Sarah Purdy [facility] - 11/11/2023 2:41 PM EDT Referral received and reviewed. Reason for referral: DM Please Schedule patient. Referring provider: Dr. Cage Initial appt length: 40 min Appointment type indicated: Pt Prefence- Inperson or Video Referral reviewed and relevant pre-visit information listed below: DM: Target Hgb A1c: < 8 Hemoglobin A1c Results: Recent Labs Units 09/29/23 0843 03/26/23 0927 06/13/22 1545 HEMOGLOBIN A1C - [facility] % 8.9* 7.2* 6.1* Current DM Medications: START Rybelsus 3 mg daily Current DICKSON/ARB therapy: NO Serum creatinine: 1 mg/dL 09/29/23 0843 Estimated creatinine clearance: 57.8 mL/min Current statin therapy: YES atorvastatin 40 mg daily Sarah Haro [facility] 11/11/2023, 2:41 PM * Telephone Encounter - Denise Ortiz [facility] - 11/11/2023 12:58 PM EDT Comments Pharmacist Medication Therapy Management: Minimum frequency patient should be seen in person for medication management: as appropriate per clinical condition and patient status By my signature, I understand that my patient Arpit Carr will have his medication therapy managed by the [facility] Medication Therapy [facility] ([facility]) per established policies, procedures, and protocols. I also certify that this referral may serve as an initiation of service for the management of drug therapy in the above noted patient. [facility] providers will be responsible for scheduling patient visits, obtaining appropriate laboratory studies, and adjusting medication management therapy per patient's need, in addition to those roles spelled out in the clinic policy, procedures, and drug management protocols. I understand that the service provided by the [facility] Clinic is voluntary and have informed patient that they can refuse the service at their discretion. I am aware that the [facility] Clinic will provide me with a copy of the patient encounter via my [email or web address]. I authorize the [facility] to carry out these activities on my behalf. I consider this program to be a necessary part of the patient's medical care. Viki Cage, Order Specific Questions Referral Priority Within 10 days (routine) Where should this appointment be scheduled? [facility] Referring Provider Role: Primary Care Reason for Referral: DM Target A1c: < 7 documented in this encounter Plan of Treatment Upcoming Encounters Date Type Department Care Team (Late st Contact Info) Description 02/15/2024 8:30 AM EST Imaging Vascular Lab, [address] [place] [address] 02/15/2024 9:30 AM EST Imaging Vascular Lab, [address] [place] [address] 02/15/2024 10:30 AM EST Imaging Vascular Lab, [address] [place] [address] 02/15/2024 11:30 AM EST Imaging Vascular Lab, [address] [place] [address] 02/18/2024 8:00 AM EST Office Visit Family Practice [address], [place] 293 [place] [address] Viki Cage DO [address] [place] [address] 03/16/2024 8:30 AM EST Office Visit Vascular Surgery, [facility] 132 [place] [address] Diego Rangel MD [address] [place] [address] Health Maintenance Due Date Last Done Comments [...] exists DISCUSS TOBACCO CESSATION (REFER TO SMARTSET #6127) 11/02/2024 11/03/2023 (Discussed) Diabetic Eye Exam 11/02/2024 [...] filedocumented as of this encounter Care Teams Sports Reporter Relationship Specialty Start Date End Date Viki Cage DO [address] [place] [address] PCP - General Family Medicine 09/29/23 documented as of this encounter
--- OUTSIDE RECORDS SUMMARY | 2024-04-12 06:53 | External Medical Summary | Summary of Care ---
Author Name Unknown Organization [facility] Address [address] [place] [address] Phone [phone] Care Team Providers Care Jetting Machine Operator Name Role Phone Viki Cage DO Primary Care Provider Reason for Visit * Reason Comments Follow Up Encounter Details Date Type Department Care Team (Late st Contact Info) Description 02/18/2024 8:00 AM EST Office Visit Family Practice [address] [place] [address] Viki Cage DO [address] [place] [address] Other eczema*; [place]al artery stenosis, [place] ([facility]); Superior mesenteric artery stenosis ([facility]); PVD (peripheral vascular disease) ([facility]); Type 2 diabetes mellitus with hemoglobin A1c goal of less than 7.0% ([facility]) Allergies Active Allergy Reactions Criticality Noted Date Comments Prednisone 06/13/2022 Changes in mood/mean documented as of this encounter (statuses as of 02/18/2024) Medications Naproxen Sodium 220 MG Oral Tablet [...] Oral Tablet (Lipitor)Indicat ions:PVD (peripheral vascular disease) ([facility]),Renal artery stenosis, [place] ([facility]) Take 1 Tablet by mouth [...] affected area. 50 g 3 4 Active Betamethasone Dipropionate Aug 0.05 % External Cream (Diprolene AF)Indications:O ther eczema Apply topically to affected area 2 times a day. To affected area. 15 g 3 4 02/18/20 24 Discontin ued(Refil l) documented as of this encounter (statuses as of 02/18/2024) Active Problems Problem Noted Date Diagnosed Date Moderate depressive disorder 03/26/2023 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/18/2023 Renal artery stenosis, [place] 02/18/2023 Hyperlipidemia 01/13/2023 Cigarette smoker 09/03/2022 Status post carotid endarterectomy 09/03/2022 Carotid stenosis, non-symptomatic, bilateral 06/2022 S/P insertion of iliac artery stent 09/03/2022 PVD (peripheral vascular disease) 09/03/2022 Presence of stent in artery 09/03/2022 Diabetes mellitus with peripheral vascular disea se 08/13/2022 Spasm of muscle documented as of this encounter (statuses as of 02/18/2024) Resolved Problems Problem Noted Date Diagnosed Date Resolved Date Food insecurity 10/13/2022 02/12/2023 Overview: Per [facility] Protocol documented as of this encounter (statuses as of 02/18/2024) Immunizations Name Administration Dates Next Due Pneumococcal [...] Smoke Exposure: Current Smokeless Tobacco: Former Chew Tobacco Cessation:Ready to Q uit: No; Counseling Given: Yes Comments:02/18/23 1 pack daily, declined pamphlet Alcohol Use Standard Drinks/Week Comments [...] AM EDT documented as of this encounter Last Filed Vital Signs Vital Sign Reading Time Taken Comments Blood Pressure 138/60 02/18/2024 8:02 AM EST Pulse 80 02/18/2024 8:02 AM EST Temperature 36.2 C (97.2 F) 02/18/2024 8:02 AM ES T Respiratory Rate 14 02/18/2024 8:02 AM EST Oxygen Saturation 97% 02/18/2024 8:02 AM EST Inhaled Oxygen Concentration - - Weight 73.9 kg (162 lb 14.4 oz) 02/18/2024 8:02 AM EST Height 165.7 cm (5' 5.25") 02/18/2024 8:02 AM ES T Body Mass Index 26.9 02/18/2024 8:02 AM EST documented in this encounter Progress Notes * Viki Cage, DO - 02/18/2024 8:14 AM EST SUBJECTIVE: Chief Complaint Patient presents with Follow Up HPI: Arpit Carr is a 73 year old male who presents today for regular return. Pt has some itching on his left forearm. He has been scratching it open. He had some itching on his back. No rash that he has seen. Pt had several vascular studies completed and has f/u with Dr. Rangel in March. Multiple stenosed vessels. He notes that his legs are cramping more. He is using some Jose remedies that help some. PHM: Patient Active Problem List Diagnosis Spasm of muscle Diabetes mellitus with peripheral vascular disease (HCC) Cigarette smoker Status post carotid endarterectomy Carotid stenosis, non-symptomatic, bilateral S/P insertion of iliac artery stent PVD (peripheral vascular disease) ([facility]) Presence of stent in artery Hyperlipidemia Superior mesenteric artery stenosis ([facility]) Renal artery stenosis, [place] ([facility]) Moderate depressive disorder Current Outpatient Medications Medication Sig Dispense Refill Naproxen Sodium 220 MG Oral Tablet Take 2 Tablets by mouth as needed for Pain. Aspirin 81 MG Oral Tablet Chewable Take 1 Tablet by mouth in the morning. with food.. 100 Tablet 5 Betamethasone Dipropionate Aug 0.05 % External Cream (Diprolene AF) Apply topically to affected area 2 times a day. To affected area. 15 g 3 Rybelsus 3 MG Oral Tablet (Semaglutide) Take 3 mg by mouth daily first thing in the morning. 30 Tablet 5 Atorvastatin Calcium 40 MG Oral Tablet (Lipitor) Take 1 Tablet by mouth in the morning. 100 Tablet 3 Cilostazol 100 MG Oral Tablet (Pletal) Take 1 Tablet by mouth in the morning and 1 Tablet before bedtime. 200 Tablet 3 No current facility-administered medications for this visit. Past Medical History: Diagnosis Date Osteopenia Spasm of muscle Past Surgical History: Procedure Laterality Date HI RPLCMT PROST AORTIC VALVE OPEN XCP HOMOGRF/STENT REPAIR INITIAL INGUINAL HERNIA REDUCIBLE AGE 5 OR MORE Review of patient's allergies indicates: Allergen Reactions Prednisone Changes in mood/mean Family History Problem Relation Name Age of Onset Diabetes Mother Emphysema Father Diabetes Sister Diabetes Sister Osteoporosis Sister Family Status Relation Status Mo Fa Sis Sis Alive Sis Alive Sis Alive Bro Bro Social History Tobacco Use Smoking status: Every Day Current packs/day: 1.00 Average packs/day: 1 pack/day for 50.0 years (50.0 ttl pk-yrs) Types: Cigarettes Passive exposure: Current Smokeless tobacco: Former Types: Chew Tobacco comments: 02/18/23 1 pack daily, declined pamphlet Substance Use Topics Alcohol use: Not Currently Vaping/E-Cigarette Use Vaping/E-Cigarette Substances Vaping/E-Cigarette Devices REVIEW OF SYSTEMS: Review of Systems Constitutional: Negative for chills, fatigue, fever and unexpected weight change. Respiratory: Negative for cough, chest tightness, shortness of breath and wheezing. Cardiovascular: Negative for chest pain, palpitations and leg swelling. Gastrointestinal: Negative for abdominal pain, constipation, diarrhea, nausea and vomiting. Musculoskeletal: Negative for arthralgias, gait problem and joint swelling. Skin: Negative for color change, pallor and rash. OBJECTIVE: BP 138/60 (BP Site: Right Arm, BP Position: Sitting, BP Cuff Size: Regular) | Pulse 80 | Temp 97.2 F (36.2 C) (Tympanic) | Resp 14 | Ht 5' 5.25" (1.657 m) | Wt 162 lb 14.4 oz (73.9 kg) | SpO2 97%| BMI 26.90 kg/m | BSA 1.84 m PHYSICAL EXAM: Physical Exam Constitutional: General: He is not in acute distress. Appearance: He is well-developed. Cardiovascular: Rate and Rhythm: Normal rate and regular rhythm. Heart sounds: Normal heart sounds. No murmur heard. No friction rub. No gallop. Pulmonary: Effort: Pulmonary effort is normal. No respiratory distress. Breath sounds: Normal breath sounds. No wheezing or rales. Abdominal: General: Bowel sounds are normal. There is no distension. Palpations: Abdomen is soft. Tenderness: There is no abdominal tenderness. There is no guarding. Musculoskeletal: General: No tenderness or deformity. Normal range of motion. Skin: General: Skin is warm and dry. Coloration: Skin is not pale. Findings: No erythema or rash. Comments: Areas of excoriation of left forearm Neurological: Mental Status: He is alert and oriented to person, place, and time. ASSESSMENT/PLAN: (L30.8) Other eczema (primary encounter diagnosis) Plan: Betamethasone Dipropionate Aug 0.05 % External Cream (Diprolene AF) Pt will use betamethasone to area on left arm. Encouraged to moisturize. (I70.1) Renal artery stenosis, [place] ([facility]) (K55.1) Superior mesenteric artery stenosis ([facility]) (I73.9) PVD (peripheral vascular disease) ([facility]) Plan: Pt will keep f/u with vascular surgery. Remain on Pletal, statin and aspirin. Seems to be having more leg claudication. (E11.9) Type 2 diabetes mellitus with hemoglobin A1c goal of less than 7.0% ([facility]) Plan: HEMOGLOBIN A1C, BASIC METABOLIC PANEL Pt will complete lab studies. Will await results. Follow-up: 3 months Total time today including reviewing chart before the visit, pertinent labs, imaging reports, face to face time, and documentation time was 32 minutes. Viki Cage DO documented in this encounter Nursing Notes * Maricel Alejo LPN - 02/18/2024 7:59 AM EST Patient here for routine follow up visit. Would like to review US results. States he will need to have cataract surgery - not scheduled. documented in this encounter Plan of Treatment Upcoming Encounters Date Type Department Care Team (Late st Contact Info) Description 03/16/2024 8:30 AM EST Office Visit Vascular Surgery, [facility] [address] [facility] [place] [address] Diego Rangel MD [address] [place] [address] 05/13/2024 8:00 AM EDT Office Visit Family Practice [address] [facility] [address] [place] [address] Viki Cage DO [address] [place] [address] Pending Results Name Type Priority Associated Diagnoses Date /Time HEMOGLOBIN A1C Lab Routine Type 2 diabetes mellitus with hemoglobin A1c goal of less than 7.0% (HCC) 02/18/2024 8:35 AM EST BASIC METABOLIC PANEL Lab Routine Type 2 diabetes mellitus with hemoglobin A1c goal of less than 7.0% (HCC) 02/18/2024 8:35 AM EST Scheduled Orders Name Type Priority Associated Diagnoses Orde r Schedule HEMOGLOBIN A1C Lab Routine Type 2 diabetes mellitus with hemoglobin A1c goal of less than 7.0% (HCC) Expected: 02/18/2024 (Approximate), Expires: 02/17/2025 BASIC METABOLIC PANEL Lab Routine Type 2 diabetes mellitus with hemoglobin A1c goal of less than 7.0% (HCC) Expected: 02/18/2024 (Approximate), Expires: 02/17/2025 Health Maintenance Due Date Last Done Comments Cologuard 08/13/1995 Colonoscopy 08/13/1995 Colorectal Cancer Screening 08/13/1995 Fecal Occult Blood Test 08/13/1995 Sigmoidoscopy 08/13/1995 Lung Cancer Screening 2000 Adult Wellness Visit 2016 *BASELINE EKG FOR HTN 08/15/2022 COVID-19 Vaccine () 02/19/2024 Postponed from 11/01/2023 (Patient Declined After Education) HbA1c 03/31/2024 09/29/2023, 03/03, 06/13/2022, Additional history exists Albumin/Creatinine Ratio 09/28/2024 09/29/2023, 07/31 GFR 09/28/2024 09/29/2023, 03/03, 08/13/2022, Additional history exists DISCUSS TOBACCO CESSATION (REFER TO SMARTSET #8851) 11/02/2024 11/03/2023 (Discussed) Diabetic Foot Exam 11/02/2024 11/03/2023, 08/13/2022 Diabetic Eye Exam 12/17/2024 12/18/2023, , 11/03/2023, Additional history exists Depression Monitoring 02/17/2025 02/18/2024 DTap/Tdap Vaccines (2 - Td or Tdap) [...] as of this encounter Visit Diagnoses Diagnosis Other eczema- Primary Renal artery stenosis, [place] (HCC) Atherosclerosis of renal artery Superior mesenteric artery stenosis (HCC) Chronic vascular insufficiency of intestine PVD (peripheral vascular disease) (HCC) Peripheral vascular disease, unspecified Type 2 diabetes mellitus with hemoglobin A1c goal of less than 7.0% (HCC) documented in this encounter Care Teams Jetting Machine Operator Relationship Specialty Start Date End Date Viki Cage DO [address] [place] [address] PCP - General Family Medicine 09/29/23 documented as of this encounter
--- OUTSIDE RECORDS SUMMARY | 2024-04-12 06:53 | External Medical Summary | Summary of Care ---
Author Name Unknown Organization [facility] Address [address] [place] [address] Phone [phone] Care Team Providers Care Seed Yeast Operator Name Role Phone Viki Rojas DO Primary Care Provider [phone] Reason for Visit * Reason Onset Date Comments Medication Refill 03/24/2024 Encounter Details Date Type Department Care Team (Late st Contact Info) Description 03/24/2024 Refill Family Practice [address] [place] [address] [place] [phone] Viki Rojas DO [address] [place] [address] Diabetes mellitus with peripheral vascular disease (HCC)* Allergies Active Allergy Reactions Criticality Noted Date [...] ons:PVD (peripheral vascular disease) (HCC),Renal artery stenosis, [place] (HCC) Take 1 Tablet by mouth in [...] mesenteric artery stenosis 02/18/2023 Renal artery stenosis, [place] 02/18/2023 Hyperlipidemia 01/13/2023 Cigarette smoker 09/03/2022 Status [...] Miscellaneous Notes * Telephone Encounter - Viki Rojas DO - 03/28/2024 8:55 AM ESTSigned Prescriptions: Disp Refills Semaglutide 7 MG Oral Tablet (Rybelsus) 30 Tab*5 Sig: Take 1 tablet by mouth once daily in the morningAuthorizing Provider: VIKI ROJAS * Telephone Encounter - Viki Rojas DO - 03/28/2024 8:55 AM EST Rx sent. * Telephone Encounter - Ibis Fry RPh - 03/24/2024 6:25 PM EST Pending Prescriptions: Disp Refills Semaglutide 7 MG Oral Tablet (Rybelsus) 30 Tab*2 Sig: Take 1 tablet by mouth once daily in the morning * Telephone Encounter - Ibis Fry [facility] - 03/24/2024 6:20 PM EST Results for orders placed or performed in visit on 02/18/24 HEMOGLOBIN A1C Result Value Ref Range Hemoglobin A1C 8.4 (H) 4.0 - 5.6 % Estimated Average Glucose 194 (H) <126 mg/dL Recommend to increase rybelsus to 7 mg daily. Recheck A1C in 3 months. Thank you, Ibis Fry, PharmD Clinical Pharmacist [facility] [phone] 03/24/2024, 6:24 PM * Telephone Encounter - Kristan Boles [facility] - 03/24/2024 3:07 PM EST Did you pend patient's preferred pharmacy and medication before forwarding?yes Pharmacy: [facility] [address] Pending Prescriptions: Disp Refills Rybelsus 3 [...] 10:50 AM EDT Office Visit Vascular Surgery, [facility] [address] [place] [address] Diego Rangel MD [address] [facility] [place] [address] 05/13/2024 8:00 AM EDT Office Visit Family Practice [address] [place] [address] [place] [address] Viki Rojas DO [address] [place] [address] Health Maintenance Due Date Last Done Comments [...] Depression Monitoring 02/17/2025 02/18/2024 GFR 02/17/2025 02/18/2024, /, 03/26/2023, Additional history exists DTap/Tdap Vaccines (2 [...] uncontrolled documented in this encounter Care Teams Seed Yeast Operator Relationship Specialty Start Date End Date Viki Rojas DO [address] [place] [address] PCP - General Family Medicine 09/29/23 documented as of this encounter
--- OUTSIDE RECORDS SUMMARY | 2024-04-12 06:53 | External Medical Summary | Summary of Care ---
Author Name Unknown Organization [facility] Address [address] [place] [address] Phone [phone] Care Team Providers Care Retail Experience Specialist Name Role Phone Viki Cage DO Primary Care Provider [phone] Reason for Visit * Reason Onset Date Comments Other 12/15/2023 Encounter Details Date Type Department Care Team (Late st Contact Info) Description 12/15/2023 Telephone Family Practice [address] [place] [address] [place] [address] Viki Cage DO [address] [place] [address] Other Allergies Active Allergy Reactions Criticality Noted [...] :PVD (peripheral vascular disease) (HCC),Renal artery stenosis, [place] (HCC) Take 1 Tablet by mouth in [...] mesenteric artery stenosis 02/18/2023 Renal artery stenosis, [place] 02/18/2023 Hyperlipidemia 01/13/2023 Cigarette smoker 09/03/2022 Status [...] encounter Miscellaneous Notes * Telephone Encounter - No Sanchez OSA - 12/15/2023 10:54 AM EDT Pt called to confirm appt with Ophthalmology for this Thursday. I do not see any appt with them in chart. Pt is adamant that it was scheduled for [facility]. Please advise. documented in this encounter Plan of Treatment Upcoming Encounters Date Type Department Care Team (Late st Contact Info) Description 02/15/2024 8:30 AM EST Imaging Vascular Lab, [address] [place] [address] 02/15/2024 9:30 AM EST Imaging Vascular Lab, [address] [place] [address] 02/15/2024 10:30 AM EST Imaging Vascular Lab, [address] [place] [address] 02/15/2024 11:30 AM EST Imaging Vascular Lab, [address] [facility] [place] [address] 02/18/2024 8:00 AM EST Office Visit Family Practice [address] [facility], [place] [address] [facility] [place] [address] Viki Cage DO [address] [place] [address] 03/16/2024 8:30 AM EST Office Visit Vascular Surgery, [facility] [address] [place] [address] Diego Rangel MD [address] [place] [address] Health Maintenance Due Date Last Done Comments Cologuard 08/13/1995 Colonoscopy 08/13/1995 Colorectal Cancer Screening 08/13/1995 Fecal Occult Blood Test 08/13/1995 Sigmoidoscopy 08/13/1995 Lung Cancer Screening 2000 Adult Wellness Visit 2016 *BASELINE EKG FOR HTN 08/15/2022 COVID-19 Vaccine () 11/01/2023 Depression Monitoring 01/14/2024 01/13/2023 HbA1c 03/31/2024 09/29/2023, [...] filedocumented as of this encounter Care Teams Retail Experience Specialist Relationship Specialty Start Date End Date Viki Cage DO [address] [place] [address] PCP - General Family Medicine 09/29/23 documented as of this encounter
--- OUTSIDE RECORDS SUMMARY | 2024-04-12 06:53 | External Medical Summary | Summary of Care ---
Author Name Unknown Organization [facility] Address [address] [place] [address] Phone [phone] Care Team Providers Care Knife Machine Operator Name Role Phone Viki Rojas DO Primary Care Provider [phone] Reason for Visit * Reason Onset Date Comments Information 02/11/202402/10 Encounter Details Date Type Department Care Team (Late st Contact Info) Description 02/11/2024 Refill Family Practice [address] [place] [address] [place] [address] Viki Rojas DO [address] [place] [address] Allergies Active Allergy Reactions Criticality Noted Date Comments Prednisone 06/13/2022 Changes in mood/mean documented as of this encounter (statuses as of 02/11/2024) Medications Naproxen Sodium 220 MG Oral Tablet Take 2 Tablets by mouth as needed for Pain. 3 Active Aspirin 81 MG Oral Tablet Chewable Take 1 Tablet by mouth in the morning. with food.. 100 Tablet 5 3 Active Betamethasone Dipropionate Aug 0.05 % External Cream (Diprolene AF)Indications:O ther eczema Apply topically to affected area 2 times a day. To affected area. 15 g 3 4 Active Rybelsus 3 MG Oral Tablet (Semaglutide) Take 3 mg by mouth daily first thing in the morning. 30 Tablet 5 4 Active Atorvastatin Calcium 40 MG Oral Tablet (Lipitor)Indicat ions:PVD (peripheral vascular disease) (HCC),Renal artery stenosis, pechanga (HCC) Take 1 Tablet by mouth in the morning. 100 Tablet 3 4 Active Cilostazol 100 MG Oral Tablet (Pletal) Take 1 Tablet by mouth in the morning and 1 Tablet before bedtime. 200 Tablet 3 4 Active Cilostazol 100 MG Oral Tablet (Pletal) Take 1 Tablet by mouth in the morning and 1 Tablet before bedtime. 200 Tablet 3 06/16/2023 11:18 AM EDT 4 02/11/20 24 Discontin ued(Refil l) documented as of this encounter (statuses as of 02/11/2024) Active Problems Problem Noted Date Diagnosed Date Moderate depressive disorder 03/26/2023 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/18/2023 Renal artery stenosis, pech[place] 02/18/2023 Hyperlipidemia 01/13/2023 Cigarette smoker 09/03/2022 Status post carotid endarterectomy 09/03/2022 Carotid stenosis, non-symptomatic, bilateral 06/2022 S/P insertion of iliac artery stent 09/03/2022 PVD (peripheral vascular disease) 09/03/2022 Presence of stent in artery 09/03/2022 Diabetes mellitus with peripheral vascular disea se 08/13/2022 Spasm of muscle documented as of this encounter (statuses as of 02/11/2024) Resolved Problems Problem Noted Date Diagnosed Date Resolved Date Food insecurity 10/13/2022 02/12/2023 Overview: Per [facility] Protocol documented as of this encounter (statuses as of 02/11/2024) Immunizations Name Administration Dates Next Due Pneumococcal [...] encounter Miscellaneous Notes * Telephone Encounter - Maricel Alejo LPN - 02/11/2024 11:56 AM EST Call placed to patient and relayed information from Dr. Harkins. Pt acknowledged understanding. States he will comply. * Telephone Encounter - Mariam Tobias [facility] - 02/11/2024 11:13 AM ESTSigned Prescriptions: Disp Refills Cilostazol 100 MG Oral Tablet (Pletal) 200 Ta*3 Sig: Take 1 Tablet by mouth in the morning and 1 Tablet before bedtime. Authorizing Provider: VIKI ROJAS * Telephone Encounter - Mariam Tobias [facility] - 02/11/2024 11:13 AM ESTSigned Prescriptions: Disp Refills Cilostazol 100 MG Oral Tablet (Pletal) 200 Ta*3 Sig: Take 1 Tablet by mouth in the morning and 1 Tablet before bedtime. Authorizing Provider: VIKI ROJAS * Telephone Encounter - Viki Rojas DO - 02/11/2024 10:54 AM EST Be sure to get Rybelsus and start today. If he does not hear, he needs to call us by end of day. * Telephone Encounter - Maricel Alejo LPN - 02/11/2024 10:19 AM EST Call placed to patient. States dizziness just started today - states he just felt off balance whilehe was carrying a bucket. No other symptoms - denied N/V/D, headache, chest pain, dyspnea. Has been eating and drinking well. Urinating well - did state since starting Rybelsus, his urine has been "foamy". No burning, frequency, blood noted. Pt states he has an OV with Dr. Rojas on , 02/18/24. He does not have the ability to check his blood sugar at home. Please advise. * Telephone Encounter - Viki Rojas DO - 02/11/2024 10:14 AM ESTSigned Prescriptions: Disp Refills Cilostazol 100 MG Oral Tablet (Pletal) 200 Ta*3 Sig: Take 1 Tablet by mouth in the morning and 1 Tablet before bedtime. Authorizing Provider: VIKI ROJAS * Telephone Encounter - Viki Rojas DO - 02/11/2024 10:14 AM ESTSigned Prescriptions: Disp Refills Cilostazol 100 MG Oral Tablet (Pletal) 200 Ta*3 Sig: Take 1 Tablet by mouth in the morning and 1 Tablet before bedtime. Authorizing Provider: VIKI ROJAS * Telephone Encounter - Viki Rojas DO - 02/11/2024 10:13 AM EST Please see if pt is having any other symptoms. Has he been eating and drinking ok? Is he urinating?When did dizziness start? * Telephone Encounter - Dee Morillo LPN - 02/11/2024 10:05 AM EST Does not have ability to check blood sugar. Advised if not able to get today to call us back. Labs? * Telephone Encounter - Dayanna Urbina OSA - 02/11/2024 9:47 AM EST Pt calling back to advise the pharmacy told him they should have his med by 2 pm today. They will text him once its filled. * Telephone Encounter - Dayanna Urbina OSA - 02/11/2024 9:42 AM EST Pt calling regarding his "sugar" pills. He states he has been out for over four days. He does feel dizzy, has not tested his sugar to know number. He states he requested Rybelsus from his pharmacy, [facility], however; he has not heard back from them. Pt was advised to contact Inés Do to check the status of this med. Please contact patient regarding being off this med for four days as he has questions regarding restarting the med. * Telephone Encounter - Dayanna Urbina OSA - 02/11/2024 9:33 AM EST Pt only has enough pills for one day please refill LYLE. Pending Prescriptions: Disp Refills Cilostazol 100 MG Oral Tablet (Pletal) 200 Ta*3 Sig: Take 1 Tablet by mouth in the morning and 1 Tablet before bedtime. Last Visit: 11/03/2023 (in office), 09/29/2023 (telemedicine) Next Visit: 02/18/2024 Last date the medication was ordered: 06/15/23 Patient Active Problem List Diagnosis Spasm of muscle Diabetes mellitus with peripheral vascular disease (HCC) Cigarette smoker Status post carotid endarterectomy Carotid stenosis, non-symptomatic, bilateral S/P insertion of iliac artery stent PVD (peripheral vascular disease) ([facility]) Presence of stent in artery Hyperlipidemia Superior mesenteric artery stenosis (HCC) Renal artery stenosis, pechanga ([facility]) Moderate depressive disorder Labs: Lab Results Component Value Date/Time CREATININE - [facility] 1.0 09/29/2023 08:43 AM CREATININE - [facility] 0.8 01/02/2004 03:14 PM CREATININE, RANDOM URINE - [facility] 70 09/29/2023 08:48 AM Lab Results Component Value Date/Time POTASSIUM - [facility] 5.0 09/29/2023 08:43 AM POTASSIUM - [facility] 4.1 01/02/2004 03:14 PM Lab Results Component Value Date/Time TSH - [facility] 0.84 06/13/2022 03:45 PM Lab Results Component Value Date/Time LDL CHOLESTEROL (DIRECT MEASURE) - [facility] 54 09/29/2023 08:43 AM LDL CHOLESTEROL (DIRECT MEASURE) - [facility] 120 06/13/2022 03:45 PM Lab Results Component Value Date/Time ALT - [facility] 39 09/29/2023 08:43 AM ALT - [facility] 30 01/02/2004 03:14 PM Hemoglobin AIC Results: Lab Results Component Value Date/Time HEMOGLOBIN A1C - [facility] 8.9 (H) 09/29/2023 08:43 AM HEMOGLOBIN A1C - [facility] 7.2 (H) 03/26/2023 09:27 AM HEMOGLOBIN A1C - [facility] 6.1 (H) 06/13/2022 03:45 PM HEMOGLOBIN A1C - [facility] 5.6 01/02/2004 03:14 PM documented in this encounter Plan of Treatment Upcoming Encounters Date Type Department Care Team (Late st Contact Info) Description 02/15/2024 8:30 AM EST Imaging Vascular Lab, [address], [address] [place] [address] 02/15/2024 9:30 AM EST Imaging Vascular Lab, [address], [address] [place] [address] 02/15/2024 10:30 AM EST Imaging Vascular Lab, [address], [address] [place] [address] 02/15/2024 11:30 AM EST Imaging Vascular Lab, [address], [address] [address] 02/18/2024 8:00 AM EST Office Visit Family Practice 65 [facility], [place] [address] [place] [address] Viki Rojas DO [address] [place] [address] 03/16/2024 8:30 AM EST Office Visit Vascular Surgery, [facility] [address] [facility] [place] [address] Diego Rangel MD [address] [place] [address] Health Maintenance Due Date Last Done Comments [...] filedocumented as of this encounter Care Teams Knife Machine Operator Relationship Specialty Start Date End Date Viki Rojas DO [address] [place] [address] PCP - General Family Medicine 09/29/23 documented as of this encounter
[2024-04-12 06:54] LABS: Albumin Level 3.4 gm/dl (3.4-5.0); Bilirubin,Total 0.6 mg/dl (0.2-1.0); Calcium 8.2 mg/dl (8.6-10.3); Creatinine Clr Calc Pharmacy 52.1 ml/min; Globulin 3.3 gm/dl (2.5-4.0); Potassium 3.9 mmol/L (3.5-5.1); Total Protein 6.7 gm/dl (6.0-8.3)
--- OUTSIDE RECORDS SUMMARY | 2024-04-12 06:54 | External Medical Summary | Summary of Care ---
Author Name Unknown Organization [facility] Address [address] [place] [address] Phone [phone] Care Team Providers Care Make Ready Mechanic Name Role Phone Viki Cage DO Primary Care Provider Reason for Visit * Reason Onset Date Comments Order Request 11/03/2023 Encounter Details Date Type Department Care Team (Late st Contact Info) Description 11/03/2023 Telephone Family Practice [address] [place] [address] [place] [phone] Viki Cage DO [address] [place] [address] Order Request Allergies Active Allergy Reactions Criticality Noted Date [...] :PVD (peripheral vascular disease) (HCC),Renal artery stenosis, [place] (HCC) Take 1 Tablet by mouth in the morning. 100 Tablet 3 06/15/2023 Active Cilostazol 100 MG Oral Tablet (Pletal) Take 1 Tablet by mouth in the morning and 1 Tablet before bedtime. 200 Tablet 3 06/15/2023 Active documented as of this encounter (statuses as of 11/04/2023) Active Problems Problem Noted Date Diagnosed Date Moderate depressive disorder 03/26/2023 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/18/2023 Renal artery stenosis, [place] 02/18/2023 Hyperlipidemia 01/13/2023 Cigarette smoker 09/03/2022 Status [...] money to buy more. Never true 01/14/20 23 Within the past 12 months, t he [...] encounter Miscellaneous Notes * Telephone Encounter - Dayana Dorado LPN - 11/04/2023 10:18 AM EDT Spoke with patient and is scheduled for testing. Dayana Dorado LPN 11/04/2023 10:18 AM * Addendum Note - Sukhjinder Mc PA-C - 11/03/2023 12:53 PM EDTAddended by: SUKHJINDER MC on: 11/03/2023 12:53 PM Modules accepted: Orders * Telephone Encounter - Sukhjinder Mc PA-C - 11/03/2023 12:49 PM EDT Pt needs complete renal scan (already ordered) and mesenteric scan (order placed * Telephone Encounter - Dayana Dorado LPN - 11/03/2023 11:14 AM EDT Pt was last seen on 02/18/[address] Rangel in [facility] and plan was to f/u in 1 yr in [facility] with DEVIKA and Mesenteric, renal and carotid duplex. Pt has 2 renal scans ordered Renal scan - LMTD Renal scan - complete Please advise which renal scan he needs and if he needs a order for the mesenteric. Pt is scheduled on 03/16/[address] Rangel in [facility]. Dayana Dorado LPN 11/03/2023 11:17 AM * Telephone Encounter - Dayanna Blanchard OSA - 11/03/2023 11:00 AM EDT Schedule vascular appt and associated imaging I have him scheduled with Dr Rangel on March 16 If needs imaging, please place order documented in this encounter Plan of Treatment Upcoming Encounters Date Type Department Care Team (Late st Contact Info) Description 11/16/2023 8:00 AM EDT Office Visit Family Practice 65 [facility] [address] [place] [address] College, Pharmacist [address] [address] 02/15/2024 8:30 AM EST Imaging Vascular Lab, [facility], [place] [address] [place] [address] 02/15/2024 9:30 AM EST Imaging Vascular Lab, [facility], [place] [address] [place] [address] 02/15/2024 10:30 AM EST Imaging Vascular Lab, [facility], [place] [address] [place] [address] 02/15/2024 11:30 AM EST Imaging Vascular Lab, [facility], [place] [address] [place] [address] 02/18/2024 8:00 AM EST Office Visit Family [facility] 65 [facility] [address] [place] [address] Viki Cage DO 293 [facility] [place] [address] 03/16/2024 8:30 AM EST Office Visit Vascular Surgery, [facility] [address] [place] [address] Diego Rangel MD [address] [place] [address] Scheduled Orders Name Type Priority Associated Diagnoses Orde r Schedule VASC MESENTERIC/CELIAC ART-COMP Medical Imaging Routine Superior mesenteric artery stenosis (HCC) Ordered: 11/03/2023 Health Maintenance Due Date Last Done Comments Cologuard 08/13/1995 Colonoscopy 08/13/1995 Fecal Occult Blood Test 08/13/1995 Sigmoidoscopy 08/13/1995 Adult Wellness Visit 2016 *BASELINE EKG FOR HTN 08/15/2022 COVID-19 Vaccine ( season) 2023 Postponed from 11/01/2023 (Unavailable) Colorectal Cancer Screening 11/04/2023 Postponed from 08/13/1995 (Patient Declined After Education) Lung Cancer Screening 11/04/2023 Postpo munira from 2000 (Patient Declined After Education) Depression Monitoring 01/14/2024 01/13/2023 HbA1c 03/31/2024 09/29/2023, 03/03, 06/13/2022, Additional history exists Albumin/Creatinine Ratio 09/28/2024 09/29/2023, 07/31 GFR 09/28/2024 09/29/2023, 03/03, 08/13/2022, Additional history exists DISCUSS TOBACCO CESSATION (REFER TO SMARTSET #0909) 11/02/2024 11/03/2023 (Discussed) Diabetic Eye Exam 11/02/2024 [...] as of this encounter Visit Diagnoses Diagnosis Superior mesenteric artery stenosis (HCC)- Primary Chronic vascular insufficiency of intestine documented in this encounter Care Teams Make Ready Mechanic Relationship Specialty Start Date End Date Viki Cage DO [address] [place] [address] PCP - General Family Medicine 09/29/23 documented as of this encounter
--- OUTSIDE RECORDS SUMMARY | 2024-04-12 06:54 | External Medical Summary | Summary of Care ---
Author Name Unknown Organization [facility] Address [address] [place] [address] Phone [phone] Care Team Providers Care Tile Sorter Name Role Phone Viki Cage DO Primary Care Provider [phone] Reason for Visit * Reason Onset Date Comments Order Request 11/03/2023 Encounter Details Date Type Department Care Team (Late st Contact Info) Description 11/03/2023 Telephone Family Practice [address], [place] [address] [place] [phone] Viki Cage DO [address] [place] [address] Order Request Allergies Active Allergy Reactions Criticality Noted Date Comments Prednisone 06/13/2022 Changes in mood/mean documented as of this encounter (statuses as of 11/03/2023) Medications Medication Sig Dispensed Refills Start Date [...] :PVD (peripheral vascular disease) (HCC),Renal artery stenosis, [place] (HCC) Take 1 Tablet by mouth in the morning. 100 Tablet 3 06/15/2023 Active Cilostazol 100 MG Oral Tablet (Pletal) Take 1 Tablet by mouth in the morning and 1 Tablet before bedtime. 200 Tablet 3 06/15/2023 Active documented as of this encounter (statuses as of 11/03/2023) Active Problems Problem Noted Date Diagnosed Date Moderate depressive disorder 03/26/2023 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/18/2023 Renal artery stenosis, [place] 02/18/2023 Hyperlipidemia 01/13/2023 Cigarette smoker 09/03/2022 Status post carotid endarterectomy 09/03/2022 Carotid stenosis, non-symptomatic, bilateral 06/2022 S/P insertion of iliac artery stent 09/03/2022 PVD (peripheral vascular disease) 09/03/2022 Presence of stent in artery 09/03/2022 Diabetes mellitus with peripheral vascular disea se 08/13/2022 Spasm of muscle documented as of this encounter (statuses as of 11/03/2023) Resolved Problems Problem Noted Date Diagnosed Date Resolved Date Food insecurity 10/13/2022 02/12/2023 Overview: Per [facility] Protocol documented as of this encounter (statuses as of 11/03/2023) Immunizations Name Administration Dates Next Due Pneumococcal [...] encounter Miscellaneous Notes * Addendum Note - Sukhjinder Mc PA-C [...] seen on 02/18/[address] Rangel in [facility] and plan was to f/u in 1 yr in [facility] with DEVIKA and Mesenteric, renal and carotid duplex. Pt has 2 renal scans ordered Renal scan - LMTD Renal scan - complete Please advise which renal scan he needs and if he needs a order for the mesenteric. Pt is scheduled on 03/16/[address] Rangel in [facility]. Dayana Dorado LPN 11/03/2023 11:17 AM * [...] EDT Office Visit Family Practice [address], [place] [address] [facility] [place] [address] College, Pharmacist 65 [facility] [address] [place] [address] 02/18/2024 8:00 AM EST Office Visit Family Practice 65 [facility] [address] [place] [address] Viki Cage DO 293 [place] [address] 03/16/2024 8:30 AM EST Office Visit Vascular Surgery, [facility] 132 [facility] [place] [address] Diego Rangel MD [address] [place], [place] [id number] Scheduled Orders Name Type Priority Associated Diagnoses [...] intestine documented in this encounter Care Teams Tile Sorter Relationship Specialty Start Date End Date Viki Cage DO [address] [place] [address] PCP - General Family Medicine 09/29/23 documented as of this encounter
--- OUTSIDE RECORDS SUMMARY | 2024-04-12 06:54 | External Medical Summary | Summary of Care ---
Author Name Unknown Organization [facility] Address [address] [place] [address] Phone [phone] Care Team Providers Care Chemistry Manager Name Role Phone Viki Cage DO Primary Care Provider [phone] Reason for Referral * Evaluate & Treat - Unlimited Visits (Within 10 days (routine)) - Authorized Specialty Diagnoses / Procedures Referred By Contac t Referred To Contact Pharmacist / Pharmacy Diagnoses Type 2 diabetes mellitus with hemoglobin A1c goal of less than 7.0% (HCC) Diabetes mellitus with peripheral vascular disease (HCC) Viki Cage DO [address] [place] [address] Referral ID Status Reason Start Date Expiration Date Visits Requested Visits Authorized [id number] Authorized Specialty Services Required 11/03/2023 05/01/2024 99 [phone] Question Answer Referral Priority Within 10 days (routine) Where should this appointment be scheduled? [facility] Referring Provider Role: Primary Care Reason for Referral: DM Target A1c: < 7 Comments Pharmacist Medication Therapy Management: Minimum frequency patient should be seen in person for medication management: as appropriate per clinical condition and patient status By my signature, I understand that my patient Arpit Carr will have his medication therapy managed by the [facility] Medication Therapy Disease Management [facility] ([facility]) per established policies, procedures, and protocols. I also certify that this referral may serve as an initiation of service for the management of drug therapy in the above noted patient. [facility] providers will be responsible for scheduling patient visits, obtaining appropriate laboratory studies, and adjusting medication management therapy per patient's need, in addition to those roles spelled out in the clinic policy, procedures, and drug management protocols. I understand that the service provided by the [facility] Clinic is voluntary and have informed patient that they can refuse the service at their discretion. I am aware that the [facility] Clinic will provide me with a copy of the patient encounter via my [email or web address]. I authorize the [facility] to carry out these activities on my behalf. I consider this program to be a necessary part of the patient's medical care. Viki Cage DO * Evaluate & Treat - Unlimited Visits (Within 30 days (routine)) - Authorized Specialty Diagnoses / Procedures Referred By Contalvarez t Referred To Contact Optometry Diagnoses Diabetes mellitus with peripheral vascular disease (HCC) Viki Cage DO [address] [place] [address] Referral ID Status Reason Start Date Expiration Date Visits Requested Visits Authorized [id number] Authorized Specialty Services Required 11/03/2023 1 1 Question Answer Referring for: Optometry Conditions Optometry Conditions Diabetic Eye Exam without Retinopathy Referral Priority Within 30 days (routine) Where should this appointment be scheduled? External Reason for Visit * Reason Onset Date Comments Follow Up Medication Administration 11/03/2023 Flu an d/or Pneumo Inj Encounter Details Date Type Department Care Team (Late st Contact Info) Description 11/03/2023 8:00 AM EDT Office Visit Family Practice 65 [facility], [address] [address] Viki Cage DO [address] [place] [address] Type 2 diabetes mellitus with hemoglobin A1c goal of less than 7.0% ([facility])*; Diabetes mellitus with peripheral vascular disease (HCC); Screen for colon cancer; Need for prophylactic vaccination and inoculation against influenza Allergies Active Allergy Reactions Criticality Noted Date [...] Oral Tablet (Lipitor)Indicatio ns:PVD (peripheral vascular disease) ([facility]),Renal artery stenosis, [place] ([facility]) Take 1 Tablet by mouth in the morning. 100 Tablet 3 06/15/2023 Active Cilostazol 100 MG Oral Tablet (Pletal) Take 1 Tablet by mouth in the morning and 1 Tablet before bedtime. 200 Tablet 3 06/15/2023 Active Empagliflozin 10 MG Oral Tablet (Jardiance) Take 1 Tablet by mouth in the morning. 100 Tablet 3 06/15/2023 4 Discontinue d(Medicatio n List Clean Up) SITagliptin Phosphate 100 MG Oral Tablet (Januvia) Take 1 Tablet by mouth in the morning. 30 Tablet 5 10/09/2023 4 Discontinue d(Medicatio n List Clean Up) documented as of this encounter (statuses as of 11/03/2023) Active Problems Problem Noted Date Diagnosed Date Moderate depressive disorder 03/26/2023 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/18/2023 Renal artery stenosis, [place] 02/18/2023 Hyperlipidemia 01/13/2023 Cigarette smoker 09/03/2022 Status [...] No 01/13/2023 Does the household have a [facility] source of income? (Household - for ages [...] on file documented as of this encounter Last Filed Vital Signs Vital Sign Reading Time Taken Comments Blood Pressure 136/64 11/03/2023 8:01 AM EDT Pulse 74 11/03/2023 8:01 AM EDT Temperature 36.7 C (98 F) 11/03/2023 8:01 AM EDT Respiratory Rate 16 11/03/2023 8:01 AM EDT Oxygen Saturation - - Inhaled Oxygen Concentration - - Weight 71.3 kg (157 lb 1.6 oz) 11/03/2023 8:01 A M EDT Height 165.7 cm (5' 5.25") 11/03/2023 8:01 AM ED T Body Mass Index 25.94 11/03/2023 8:01 AM EDT documented in this encounter Patient Instructions * Patient Instructions* Dee Morillo LPN - 11/03/2023 7:56 AM EDT Diabetes: Keeping Feet Healthy Inspect your feet every day for signs of a problem. Diabetes can damage nerves in your feet and cause neuropathy. This condition makes it hard for you to feel injuries or sore spots. Diabetes can also change blood flow, making it harder for small problems, like a blister, to heal properly. In fact, minor injuries can quickly become serious infections that send you to the hospital. Practice self-care to protect your feet and keep them healthy. Take Special Care Inspect your feet daily for problems such as redness, blisters, cracks, dry skin, or numbness. Use a mirror to see the bottoms of your feet. Or, ask for help. Manage your diabetes. Monitor and control your blood sugar. Take all your medications as prescribed. Avoid walking barefoot, even indoors. Wash your feet with warm water and mild soap. Dry well, especially between toes. Dont treat corns or calluses yourself. Talk to your doctor or operations manager assistant (a doctor who specializes in foot care) if you need assistance trimming your toenails. Use moisturizing cream or lotion if you have dry skin, but dont use it between toes. Dont use heating pads on your feet. If you have neuropathy, you could get a burn and not feel it. Stop smoking. Smoking restricts blood flow and can make it harder for wounds to heal. Have Regular Checkups Foot problems can develop quickly. So be sure to follow your healthcare teams schedule for regular checkups. During office visits, take off your shoes and socks as soon as you get in the exam room. Ask your healthcare provider to examine your feet for problems. This will make it easier to find and treat small skin irritations before they get worse. Regular checkups can also help keep track of the blood flow and feeling in your feet. If you have neuropathy, you may need to have checkups more often. Wear Proper Footwear Wearing proper footwear is very important. If areas of your feet have been damaged by too much pressure, your healthcare provider may recommend changing your footwear. In some cases, avoiding high heels or tight work boots may be all thats needed. Or, your healthcare provider may recommend special shoes or custom inserts. These help protect your feet and keep existing irritations from getting worse. If you need special footwear, ask your healthcare provider if you qualify for [employer] diabetic shoe program. Make Sure Shoes and Socks Fit Any pair of shoes--new or old--should feel comfortable as soon as you put them on. There shouldnt be any rubbing when you walk. Wear the right shoe for any activity. For instance, a running shoe is designed to keep your feet injury-free while jogging. Buy shoes at the end of the day, when your feet are larger. Make sure they provide support without feeling too loose. Make sure your socks fit, t oo. Wear soft, seamless, well-padded socks for activity. Cotton or microfiber socks are best to help to absorb sweat. To protect your feet, avoid shoes that are open-toed or open-heeled. If you have questions about what kinds of shoes and socks are best, talk to your healthcare team. Get Regular Exercise Regular exercise improves blood flow in your feet. It also increases foot strength and flexibility.Gentle exercises, like walking or riding a stationary bicycle, are best. You can also do special foot exercises. Just be sure to talk with your healthcare provider before starting any exercise program. Also mention if any exercise causes pain, redness, or other signs of foot problems. Note: If you have any kind of break in the skin of your foot or ankle, keep the area clean. Then call your doctor--especially if the area doesnt appear to be healing. 1165-7404 [employer], [address] [place] [address]. All rights reserved. This information is not intended as a substitute for professional medical care. Always follow your healthcare professional's instructions. ~~PATIENT INSTRUCTIONS FOR FLU SHOT~~ Possible side effects of influenza vaccine, (flu shot), are usually mild and include: 1. Soreness or redness at injection site 2. Low grade fever 3. Body aches You may use Tylenol/Acetaminophen as needed for these symptoms. LET YOUR DOCTOR KNOW IMMEDIATELY IF YOU HAVE DIFFICULTY BREATHING OR SWALLOWING, EXPERIENCE ITCHINGOF FEET OR HANDS, HAVE SWELLING OF EYES, FACE OR INSIDE OF NOSE. documented in this encounter Progress Notes * Dee Morillo LPN - 11/03/2023 7:56 AM EDT Socks and Shoes Removed for Annual Diabetic Foot Screening RIGHT FOOT: No Reddened, Cracking, Or Open Areas Noted. RIGHT Dorsalis Pedis Pulse: Palpable RIGHT Posterior Tibial Pulse: Palpable RIGHT Monofilament:Patient reports feeling monofilament pressure on plantar surface of foot LEFT FOOT: No Reddened, Cracking or Open Areas Noted. LEFT Dorsalis Pedis Pulse: Palpable LEFT Posterior Tibial Pulse: Palpable LEFT Monofilament:Patient reports feeling monofilament pressure on plantar surface of foot Do you need diabetic shoes: N/A PRE - ADMINISTRATION DOCUMENTATION Are you experiencing any cold symptoms or fever? No Have you had Guillain-[place] Syndrome (an illness that causes paralysis) within the last 6 weeks? No Have you had the flu shot in the past? YES Have you ever had a reaction to the flu shot? No Dee Morillo LPN, 11/03/2023 8:00 AM * Viki Cage DO - 11/03/2023 7:55 AM EDT SUBJECTIVE: Chief Complaint Patient presents with Follow Up Medication Administration Flu and/or Pneumo Inj HPI: Arpit Carr is a 73 year old male who presents today for regular return. Pt states that he was not able to afford the Januvia. He reports significant diarrhea with jardiance and metformin. He is reluctant to try anything injectable. He states that he does not think he actually has diabetes but questions what can happen if it is not controlled. PHM: Patient Active Problem List Diagnosis Spasm of muscle Diabetes mellitus with peripheral vascular disease (HCC) Cigarette smoker Status post carotid endarterectomy Carotid stenosis, non-symptomatic, bilateral S/P insertion of iliac artery stent PVD (peripheral vascular disease) ([facility]) Presence of stent in artery Hyperlipidemia Superior mesenteric artery stenosis (HCC) Renal artery stenosis, [place] ([facility]) Moderate depressive disorder Current Outpatient Medications Medication Sig Dispense Refill Naproxen Sodium 220 MG Oral Tablet Take 2 Tablets by mouth as needed for Pain. Aspirin 81 MG Oral Tablet Chewable Take 1 Tablet by mouth in the morning. with food.. 100 Tablet 5 Atorvastatin Calcium 40 MG Oral Tablet (Lipitor) Take 1 Tablet by mouth in the morning. 100 Tablet 3 Cilostazol 100 MG Oral Tablet (Pletal) Take 1 Tablet by mouth in the morning and 1 Tablet before bedtime. 200 Tablet 3 Betamethasone Dipropionate Aug 0.05 % External Cream (Diprolene AF) Apply topically to affected area 2 times a day. To affected area. 15 g 3 No current facility-administered medications for this visit. Past Medical History: Diagnosis Date Osteopenia Spasm of muscle Past Surgical History: Procedure Laterality Date RI RPLCMT PROST AORTIC VALVE OPEN XCP HOMOGRF/STENT [...] color change, pallor and rash. OBJECTIVE: BP 136/64 | Pulse 74 | Temp 36.7 C (98 F) | Resp 16 | Ht 1.657 m (5' 5.25") | Wt 71.3 kg (157 lb 1.6 oz) | BMI 25.94 kg/m | BSA 1.81 m PHYSICAL EXAM: Physical Exam Constitutional: General: [...] not pale. Findings: No erythema or rash. Neurological: Mental Status: He is alert and oriented to person, place, and time. ASSESSMENT/PLAN: (E11.9) Type 2 diabetes mellitus with hemoglobin A1c goal of less than 7.0% ([facility]) (primary encounter diagnosis) (E11.51) Diabetes mellitus with peripheral vascular disease (HCC) Plan: DIABETES FOOT EXAM, TELEMEDICINE DIABETIC EYE, ADULT/PEDS OPHTHALMOLOGY/OPTOMETRY REFERRAL OP, PHARMACIST MEDS THERAPY MGMT REFERRAL OP Hopeful that we can get [employer] through patient assistance or [employer]. Will have pharmacy reimbursement team assist. Eye screen today. Reviewed importance of treating his sugars. Reviewed potential consequences. (Z12.11) Screen for colon cancer Plan: FECAL OCCULT BLOOD, EIA Pt notes he has at home and will complete. (Z23) Need for prophylactic vaccination and inoculation against influenza Plan: INFLUENZA VAC., TRIVALENT, HD, PF, 65 AND ABOVE, 0.5 ML IM (FLUZONE HD) Vaccine given. See admin record. Follow-up: 3 months Total time today including reviewing chart before the visit, pertinent labs, imaging reports, face to face time, and documentation time was 36 minutes. Viki Cage DO documented in this encounter Plan of Treatment Upcoming Encounters Date Type Department Care Team (Late st Contact Info) Description 11/16/2023 8:00 AM EDT Office Visit Family Practice 65 [facility] [address] [place] [phone] College, Pharmacist [address] [address] 02/18/2024 8:00 AM EST Office Visit Family Practice 65 [facility] [address] [place] [phone] Viki Cage DO [address] [place] [address] 03/16/2024 8:30 AM EST Office Visit Vascular Surgery, [facility] [address] [place] [address] Diego Rangel MD [address] [place], [place] [id number] Scheduled Orders Name Type Priority Associated Diagnoses Orde r Schedule FECAL OCCULT BLOOD, EIA Lab Routine Screen for colon cancer Expected: 11/03/2023 (Approximate), Expires: 11/02/2024 Scheduled Referrals Name Type Priority Associated Diagnoses Orde r Schedule ADULT/PEDS OPHTHALMOLOGY/OPTOME TRY REFERRAL OP Referral Within 30 days (routine) Diabetes mellitus with peripheral vascular disease (HCC) Ordered: 11/03/2023 PHARMACIST MEDS THERAPY MGMT REFERRAL OP Referral Within 10 days (routine) Type 2 diabetes mellitus with hemoglobin A1c goal of less than 7.0% (HCC) Diabetes mellitus with peripheral vascular disease (HCC) Ordered: 11/03/2023 Health Maintenance Due Date [...] Not on filedocumented as of this encounter Procedures Procedure Name Priority Date/Time Associated Diagnosis Comments TELEMEDICINE DIABETIC EYE Routine 11/03/2023 Diabetes mellitus with peripheral vascular disease (HCC) documented in this encounter Results * TELEMEDICINE DIABETIC EYE (11/03/2023) 11/03/2023 Viki M Holencik DO DIGITAL PHOTOGRAPHY documented in this encounter Visit Diagnoses Diagnosis Type 2 diabetes mellitus with hemoglobin A1c goal of less than 7.0% (HCC)- Primary Diabetes mellitus with peripheral vascular disease (HCC) Type II or unspecified type diabetes mellitus with peripheral circulatory disorders, not stated as uncontrolled Screen for colon cancer Special screening for malignant neoplasms, colon Need for prophylactic vaccination and inoculation against influenza documented in this encounter Care Teams Chemistry Manager Relationship Specialty Start Date End Date Viki Cage DO [address] [place] [id number] PCP - General Family Medicine 09/29/23 documented as of this encounter
--- OUTSIDE RECORDS SUMMARY | 2024-04-12 06:54 | External Medical Summary | Summary of Care ---
Author Name Unknown Organization [facility] Address [address] [place] [address] Phone [phone] Care Team Providers Care Coverage Specialist Name Role Phone Viki Cage DO Primary Care Provider Reason for Visit * Reason Onset Date Comments Advice 11/03/2023 Scan To Read 11/03/2023 Encounter Details Date Type Department Care Team (Late st Contact Info) Description 11/03/2023 Telephone Family Practice [address] [place] [address] [place] [phone] Viki Cage DO [address] [place] [address] Advice; Scan To Read Allergies Active Allergy [...] Oral Tablet (Lipitor)Indications :PVD (peripheral vascular disease) ([facility]),Renal artery stenosis, [place] ([facility]) Take 1 Tablet by mouth in the [...] mesenteric artery stenosis 02/18/2023 Renal artery stenosis, [place] 02/18/2023 Hyperlipidemia 01/13/2023 Cigarette smoker 09/03/2022 Status [...] encounter Miscellaneous Notes * Telephone Encounter - Andres Calderon MD - 11/03/2023 12:47 PM EDT Retinal Scan Imaging Arpit Carr [id number] Retinal Scan Interpretation: There is no retinopathy in both eyes Diabetes Retinal Imaging Care Plan: The retinal scan results are normal - I will forward this encounter to the Ophthalmology DM Letter Pool [[id number]], they will send a normal retinal scan letter to the patient, and the patient will be seen back for a yearly scan. Andres Calderon MD 11/03/2023 12:47 PM * Telephone Encounter - Antoinette Mehta RT (R) - 11/03/2023 9:18 AM EDT A Diabetic Telemed Eye image was taken and requires your interpretation for Dr Cage. Please check your inbasket for image. Patient prefers to be seen at [facility] if a follow-up appointment is needed. * Telephone Encounter - Viki Cage DO - 11/03/2023 8:54 AM EDT Please assess patient for PACE and Dino Nordisk for [employer]belsus assistance. documented in this encounter Plan of Treatment Upcoming Encounters Date Type Department Care Team (Late st Contact Info) Description 11/16/2023 8:00 AM EDT Office Visit Family Practice 65 [facility] [address] [facility] [place] [address] College, Pharmacist [address] [place] [address] 02/18/2024 8:00 AM EST Office Visit Family Practice [address] [place] [address] Viki Cage, [address] [place] [address] 03/16/2024 8:30 AM EST Office Visit Vascular Surgery, [facility] [address] [place] [place] [address] Diego Rangel MD [address] [place] [address] Health Maintenance Due Date Last Done Comments Cologuard 08/13/1995 Colonoscopy 08/13/1995 Fecal Occult Blood Test 08/13/1995 Sigmoidoscopy 08/13/1995 Adult Wellness Visit 2016 *BASELINE EKG FOR HTN 08/15/2022 COVID-19 Vaccine () 11/04/2023 Postponed from 11/01/2023 (Unavailable) Colorectal Cancer Screening 11/04/2023 Postponed from 08/13/1995 (Patient Declined After Education) Lung Cancer Screening 11/04/2023 Postpo munira from 2000 (Patient Declined After Education) Depression Monitoring 01/14/2024 01/13/2023 HbA1c 03/31/2024 09/29/2023, 03/03, 06/13/2022, Additional history exists Albumin/Creatinine Ratio 09/28/2024 09/29/2023, 07/31 GFR 09/28/2024 09/29/2023, 03/03, 08/13/2022, Additional history exists DISCUSS TOBACCO CESSATION (REFER TO SMARTSET #[id number]) 11/02/2024 11/03/2023 (Discussed) Diabetic Eye Exam 11/02/2024 [...] filedocumented as of this encounter Care Teams Coverage Specialist Relationship Specialty Start Date End Date Viki Cage DO [address] [place] [address] PCP - General Family Medicine 09/29/23 documented as of this encounter
--- OUTSIDE RECORDS SUMMARY | 2024-04-12 06:54 | External Medical Summary | Summary of Care ---
Author Name Unknown Organization [facility] Address [address] [place] [address] Phone [phone] Care Team Providers Care Dip Tube Assembler Machine Name Role Phone Viki Cage DO Primary Care Provider [phone] Reason for Referral * Evaluate & Treat - Unlimited Visits (Within 10 days (routine)) - Authorized Specialty Diagnoses / Procedures Referred By Contac t Referred To Contact Pharmacist / Pharmacy Diagnoses Type 2 diabetes mellitus with hemoglobin A1c goal of less than 7.0% (HCC) Diabetes mellitus with peripheral vascular disease (HCC) Viki Cage DO [address] [place] [address] Referral ID Status Reason Start Date Expiration Date Visits Requested Visits Authorized [id number] Authorized Specialty Services Required 11/03/2023 05/01/2024 99 99 Question Answer Referral Priority Within 10 days (routine) Where should this appointment be scheduled? [facility] Referring Provider Role: Primary Care Reason for Referral: DM Target A1c: < 7 Comments Pharmacist Medication Therapy Management: Minimum frequency patient should be seen in person for medication management: as appropriate per clinical condition and patient status By my signature, I understand that my patient Arpit Carr will have his medication therapy managed by the [facility] ([facility]) per established policies, procedures, and protocols. I also certify that this referral may serve as an initiation of service for the management of drug therapy in the above noted patient. [facility] providers will be responsible for scheduling patient visits, obtaining appropriate laboratory studies, and adjusting medication management therapy per patient's need, in addition to those roles spelled out in the clinic policy, procedures, and drug management protocols. I understand that the service provided by the [facility] is voluntary and have informed patient that they can refuse the service at their discretion. I am aware that the [facility] will provide me with a copy of the patient encounter via my [employer]. I authorize the [facility] to carry out these activities on my behalf. I consider this program to be a necessary part of the patient's medical care. Viki Cage DO * Evaluate & Treat - Unlimited Visits (Within 30 days (routine)) - Authorized Specialty Diagnoses / Procedures Referred By Contalvarez t Referred To Contact Optometry Diagnoses Diabetes mellitus with peripheral vascular disease (HCC) Viki Cage DO [address] [place] [address] Referral ID Status Reason Start Date Expiration Date Visits Requested Visits Authorized [id number] Authorized Specialty Services Required 11/03/2023 1 1 [...] AM EDT Office Visit Family Practice 65 [facility], [address] [address] Viki Cage DO [address] [place] [address] Type 2 diabetes mellitus with hemoglobin A1c goal of less than 7.0% ([facility])*; Diabetes mellitus with peripheral vascular disease (HCC); [...] Oral Tablet (Lipitor)Indicatio ns:PVD (peripheral vascular disease) ([facility]),Renal artery stenosis, [place] ([facility]) Take 1 Tablet by mouth in [...] mesenteric artery stenosis 02/18/2023 Renal artery stenosis, [place] 02/18/2023 Hyperlipidemia 01/13/2023 Cigarette smoker 09/03/2022 Status [...] No 01/13/2023 Does the household have a unm cancer centerlar source of income? (Household - for ages [...] calluses yourself. Talk to your doctor or count room clerk (a doctor who specializes in foot care) [...] the area doesnt appear to be healing. [id number] [employer], [address] [place] [address]. All rights reserved. This information is not [...] symptoms or fever? No Have you had Guillain-Creston Syndrome (an illness that causes paralysis) within [...] iliac artery stent PVD (peripheral vascular disease) ([facility]) Presence of stent in artery Hyperlipidemia Superior mesenteric artery stenosis (HCC) Renal artery stenosis, [place] ([facility]) Moderate depressive disorder Current Outpatient Medications Medication [...] muscle Past Surgical History: Procedure Laterality Date CO RPLCMT PROST AORTIC VALVE OPEN XCP HOMOGRF/STENT [...] hemoglobin A1c goal of less than 7.0% ([facility]) (primary encounter diagnosis) (E11.51) Diabetes mellitus with [...] AM EDT Office Visit Family Practice 65 [facility] 293 [place] [phone] College, Pharmacist [address] [address] 02/18/2024 8:00 AM EST Office Visit Family Practice 65 [facility] [address] [place] [phone] Viki Cage DO [address] [place] [address] 03/16/2024 8:30 AM EST Office Visit Vascular Surgery, [facility] [address] [facility] [place] [address] Diego Rangel MD [address], [place] [id number] Scheduled Orders Name Type Priority Associated Diagnoses [...] Visit 2016 *BASELINE EKG FOR HTN 08/15/2022 Diabetic Eye Exam 08/14/2023 08/13/2022 COVID-19 Vaccine ( season) 2023 Postponed from [...] (Discussed) Diabetic Foot Exam 11/02/2024 11/03/2023, 08/13/2022 DTap/Tdap [...] as of this encounter Visit Diagnoses Diagnosis Type 2 [...] influenza documented in this encounter Care Teams Dip Tube Assembler Machine Relationship Specialty Start Date End Date Viki Cage DO [address] [place] [address] PCP - General Family Medicine 09/29/23 documented as of this encounter
--- OUTSIDE RECORDS SUMMARY | 2024-04-12 06:54 | External Medical Summary | Summary of Care ---
Author Name Unknown Organization [facility] Address [address] [place] [address] Phone [phone] Care Team Providers Care Skin Care Instructor Name Role Phone Viki Cage DO Primary Care Provider [phone] Reason for Visit * Reason Onset Date Comments Order Request 11/03/2023 Encounter Details Date Type Department Care Team (Late st Contact Info) Description 11/03/2023 Telephone Family Practice [address] [place] [address] [place] [phone] Viki Cage DO [address] [place] [address] Order Request Allergies Active Allergy Reactions Criticality [...] :PVD (peripheral vascular disease) (HCC),Renal artery stenosis, [place] (HCC) Take 1 Tablet by mouth in [...] mesenteric artery stenosis 02/18/2023 Renal artery stenosis, [place] 02/18/2023 Hyperlipidemia 01/13/2023 Cigarette smoker 09/03/2022 Status [...] seen on 02/18/[address] Rangel in [facility] and plan was to f/u in 1 yr in [facility] with DEVIKA and Mesenteric, renal and carotid duplex. Pt has 2 renal scans ordered Renal scan - LMTD Renal scan - complete Please advise which renal scan he needs and if he needs a order for the mesenteric. Pt is scheduled on 03/16/[address] Rangel in [facility]. Dayana Dorado LPN 11/03/2023 11:17 AM * [...] AM EDT Office Visit Family Practice 65 [facility] 293 [facility] [place] [address] College, Pharmacist [address] [place] [address] 02/18/2024 8:00 AM EST Office Visit Family Practice 65 [facility] 293 [facility] [place] [phone] Viki Cage DO 293 [facility] [place] [address] 03/16/2024 8:30 AM EST Office Visit Vascular Surgery, [facility] [address] [place] [address] Diego Rangel MD [address] [place] [address] Health Maintenance Due Date Last Done Comments [...] exists DISCUSS TOBACCO CESSATION (REFER TO SMARTSET #5494) 11/02/2024 11/03/2023 (Discussed) Diabetic Eye Exam 11/02/2024 [...] filedocumented as of this encounter Care Teams Skin Care Instructor Relationship Specialty Start Date End Date Viki Cage DO [address] [place] [address] PCP - General Family Medicine 09/29/23 documented as of this encounter
--- OUTSIDE RECORDS SUMMARY | 2024-04-12 06:54 | External Medical Summary | Summary of Care ---
Author Name Unknown Organization [facility] Address [address] [place] [address] Phone [phone] Care Team Providers Care Senior Benefits Specialist Name Role Phone Viki Cage DO Primary Care Provider [phone] Reason for Visit * Reason Onset Date Comments Advice 11/03/2023 Scan To Read 11/03/2023 Encounter Details Date Type Department Care Team (Late st Contact Info) Description 11/03/2023 Telephone Family Practice [address] [place] [address] [place] [phone] Viki Cage DO [address] [place] [address] Advice; Scan To Read Allergies Active Allergy [...] (Lipitor)Indications :PVD (peripheral vascular disease) ([facility]),Renal artery stenosis, [place] ([facility]) Take 1 Tablet by mouth in [...] mesenteric artery stenosis 02/18/2023 Renal artery stenosis, [place] 02/18/2023 Hyperlipidemia 01/13/2023 Cigarette smoker 09/03/2022 Status [...] encounter Miscellaneous Notes * Telephone Encounter - Antoinette Mehta RT (R) - 11/03/2023 9:18 AM EDT A Diabetic Telemed Eye image was taken and requires your interpretation for Dr Cage. Please check your inbasket for image. Patient prefers to be seen at [facility] if a follow-up appointment is needed. * Telephone Encounter - Viki Cage DO - 11/03/2023 8:54 AM EDT Please assess patient for PACE and Kiosked for [employer] assistance. documented in this encounter Plan of Treatment Upcoming Encounters Date Type Department Care Team (Late st Contact Info) Description 11/16/2023 8:00 AM EDT Office Visit Family Practice 65 [facility] [address] [place] [phone] College, Pharmacist [address] [address] 02/18/2024 8:00 AM EST Office Visit Family Practice 65 [facility] [address] [place] [address] Viki Cage DO [address] [place] [address] 03/16/2024 8:30 AM EST Office Visit Vascular Surgery, [facility] [address] [address] Diego Rangel MD [address] [facility], [place] [address] Health Maintenance Due Date Last Done Comments Cologuamarco antonio 08/13/1995 Colonoscopy 08/13/1995 Fecal Occult Blood Test [...] exists DISCUSS TOBACCO CESSATION (REFER TO SMARTSET #[id number]) 11/02/2024 11/03/2023 (Discussed) Diabetic Eye Exam 11/02/2024 [...] filedocumented as of this encounter Care Teams Senior Benefits Specialist Relationship Specialty Start Date End Date Viki Cage DO [address] [place] [facility] [place] [address] PCP - General Family Medicine 09/29/23 documented as of this encounter
[2024-04-12] MEDS: CEFEPIME 2000MG 2,000 MG/20 ML SYR IV ONE (08:39)
[2024-04-12] MEDS: ATORVASTATIN 40 MG TAB PO SCH (08:40)
[2024-04-12] MEDS: DOXYCYCLINE HYCLATE 100 MG CAP PO SCH (08:40)
[2024-04-12] MEDS: ASPIRIN 81 MG ECTAB PO SCH (08:40)
[2024-04-12] MEDS: cilostazoL 100 MG TAB PO SCH (08:40)
[2024-04-12] MEDS: ENOXAPARIN INJ 40 MG/0.4 ML SYR SQ SCH (08:41)
[2024-04-12] MEDS: OSELTAMIVIR PHOSPHATE SUSP 30 MG/5 ML UDP PO SCH (08:42)
[2024-04-12] MEDS: guaiFENesin 600 MG TABCR PO SCH (08:43)
[2024-04-12] MEDS ORDERED: ENOXAPARIN INJ 40 MG/0.4 ML SYR SQ SCH (09:00)
[2024-04-12] MEDS: SODIUM CHLOR 7% 4 ML NEB NEB SCH (10:20)
[2024-04-12] MEDS: ADVANCED PROBIOTIC 625 MG CAPSULE PO SCH (10:50)
[2024-04-12] MEDS ORDERED: PHARMACY GLYCEMIC MGMT CONSULT PRN (15:24)
--- NOTE | 2024-04-12 15:25 | Hospitalist Progress Note ---
Date of Service April 12, 2024 Assessment & Plan (1) SOB (shortness of breath): Plan: Sepsis secondary to pneumonia, influenza A infection Possible COPD exacerbation, secondary to above CT chest: 1. Some breathing motion artifact. No central pulmonary embolism. 2. Small area of patchy airspace disease in the right medial upper lobe. Mild peribronchial thickening bilaterally. May represent infectious/inflammatory process. Blood culture: Pending Sputum culture: Pending Lactic acid normal Was still having febrile episodes to this morning Clinically seems to be gradually improving Continue cefepime plus doxycycline, Tamiflu Start Solu-Medrol 40 every 8 hours Continue nebs 4 times daily Continue Mucinex, incentive spirometry, flutter valve Lovenox for DVT prophylaxis nonobstructive CAD/PVD status post surgery hypertension, slightly elevated patient not on maintenance medications at home - Monitor closely hyperlipidemia, on statin Rx DM2 on oral medications, suboptimal control as of recent hemoglobin A1c of 8.4 last January 2024 -Pharmacy glycemic management consulted chronic anemia, hemoglobin at baseline ongoing tobacco abuse Nicotine patch as needed DVT prophylaxis. Lovenox subcu Full code Admission and Anticipated Discharge Date Admission Date: April 12, 2024 Subjective Follow-up for sepsis, pneumonia, influenza infection, etc. Seen resting in bed, not in distress, States he feels little bit better compared to admission still having some mild dyspnea, and productive cough No chest pain, palpitations, dizziness, abdominal pain, nausea vomiting No other new symptoms Review of Systems Review of Systems: all noted and negative except for above Physical Exam Physical Exam: General- oriented x 3, not in distress, speaks in sentences with no effort or accessory muscle use Eyes- anicteric Neck- no JVD Lungs- Positive scattered crackles bilaterally Heart- normal rate, regular rhythm; no murmurs Abdomen- normal bowel sounds, nondistended, soft, nontender Extremities- no pretibial edema, no calf tenderness Neuro- alert, oriented x 3; no gross focal neurologic deficits Skin- warm & dry Results & Data Results & Data Vital Signs (Past 12 Hours) Vital Signs Temp Pulse Pulse Resp BP BP Pulse Ox 04/12/24 14:56 104 H 04/12/24 14:22 101 H 18 94 04/12/24 13:29 36.7 C 108 H 19 159/65 H 95 04/12/24 13:19 04/12/24 12:44 37.5 C 98 H 25 H 149/65 H 95 04/12/24 11:00 105 H 24 126/46 L 95 04/12/24 10:20 105 H 20 96 04/12/24 07:22 108 H 04/12/24 07:04 106 H 20 116/62 98 04/12/24 06:40 38.1 C H 04/12/24 06:37 111 H 04/12/24 06:12 112 H 141/67 H 04/12/24 05:47 37.6 C H 113 H 24 141/72 H 95 O2 Del Method 04/12/24 14:56 04/12/24 14:22 Room Air 04/12/24 13:29 Room Air 04/12/24 13:19 Room Air 04/12/24 12:44 Room Air 04/12/24 11:00 Room Air 04/12/24 10:20 Room Air 04/12/24 07:22 04/12/24 07:04 Room Air 04/12/24 06:40 04/12/24 06:37 04/12/24 06:12 04/12/24 05:47 Room Air all noted and reviewed including below
[2024-04-12] MEDS ORDERED: methylPREDNISolone 125 MG/2 ML VIAL IV SCH (15:30)
--- NOTE | 2024-04-12 15:39 | Pharmacy Report ---
Pharmacy Glycemic Short Note 2 - Date of Service April 12, 2024 - Glycemic Short BSG Results (Last 24 hours): 04/11/24 04/12/24 04/12/24 16:49 01:34 06:11 Glucose 238 H 170 H POC Glucose 215 H 04/12/24 04/12/24 08:23 12:50 Glucose POC Glucose 188 H 130 H OUTPATIENT ANTIDIABETIC REGIMEN: * semaglutide ASSESSMENT: * 73 year old admitted with bronchitis, started on steroids. Type 2 diabetic managed on semaglutide outpatient. A1c 8.4% per notes as of Jan 2024. Pharmacy consulted for glycemic management for ongoing steroids. PLAN FOR INPATIENT GLYCEMIC CONTROL: * Hold outpatient oral diabetes medications * Basal insulin * Lantus 5 units this AM given * Lantus 5-10 units HS per BSG value * Bolus insulin * NovoLog per scale ACHS or Q6hrs while NPO * Goal Range: Low 110 mg/dL - High 140 mg/dL * Correction Factor: 25 mg/dL/unit * Nutritional / Prandial insulin per carb ratio of 1 unit per 8 grams CHO consumed
[2024-04-12] MEDS: methylPREDNISolone 40 MG in SYRINGE 0 ML IV SCH (17:02)
[2024-04-12] MEDS: CEFEPIME 2000MG 2,000 MG/20 ML SYR IV SCH (20:50)
[2024-04-12] MEDS: LANTUS PER UNIT CHARGE SQ ONE (21:31)
[2024-04-13] MEDS: INSULIN ASPART PER UNIT CHARGE SC SCH (00:36)
--- NOTE | 2024-04-13 05:20 | Electrocardiogram Report ---
Test Reason : Blood Pressure : */* mmHG Vent. Rate : 127 BPM Atrial Rate : 127 BPM P-R Int : 150 ms QRS Dur : 64 ms QT Int : 288 ms P-R-T Axes : 78 70 93 degrees QTcB Int : 418 ms Sinus tachycardia with Premature supraventricular complexes Anteroseptal infarct , age undetermined Nonspecific ST abnormality Abnormal ECG When compared with ECG of 11-Feb-2011 10:08, Premature supraventricular complexes are now Present Vent. rate has increased by 58 bpm Confirmed by Johan Fonseca ([id number]) on 04/13/2024 5:20:12 AM Referred By: NO PCP Confirmed By: Johan Fonseca
[2024-04-13 06:29] LABS: Basophils # (auto) 0.01 K/uL (0.00-0.20); Basophils % (auto) 0.2 %; Hematocrit (blood only) 32.6 % (42.0-52.0); Hemoglobin 11.4 g/dl (14.0-18.0); Immature Granulocytes # (auto) 0.03 K/uL (0.01-0.20); Immature Granulocytes % (auto) 0.5 %; Lymphocytes # (auto) 0.57 K/uL (1.20-3.40); Lymphocytes % (auto) 10.3 %; Mean Corpuscular Hemoglobin 30.2 pg (25.0-34.0); Mean Corpuscular Volume 86.5 fL (80.0-100.0); Mean Platelet Volume 10.2 fL (9.4-12.4); Monocytes # (auto) 0.12 K/uL (0.11-0.59); Monocytes % (auto) 2.2 %; Neutrophils # (auto) 4.83 K/uL (1.40-6.50); Neutrophils % (auto) 86.8 %; Platelet Count 136 K/uL (130-400); RDW Coefficient of Variation 13.5 % (11.5-14.5); RDW Standard Deviation 42.7 fL (36.4-46.3); Red Blood Count 3.77 M/uL (4.70-6.10); White Blood Count 5.56 K/ul (4.8-10.8)
[2024-04-13 06:47] LABS: BUN Creatinine Ratio 15.5 (10-20); Calcium 8.5 mg/dl (8.6-10.3); Creatinine Clr Calc Pharmacy 57.6 ml/min; Potassium 3.9 mmol/L (3.5-5.1)
[2024-04-13] MEDS: hydrOXYzine HCl 10 MG TAB PO PRN (08:42)
[2024-04-13] MEDS: LANTUS PER UNIT CHARGE SQ SCH ×2 (08:54→21:03)
[2024-04-13] MEDS: INSULIN HUMAN REGULAR PER UNIT 5 UNITS in SYRINGE 4.95 ML IV ONE (12:51)
--- NOTE | 2024-04-13 13:30 | Pharmacy Report ---
Pharmacy Glycemic Short Note 2 - Date of Service April 13, 2024 - Glycemic Short BSG Results (Last 24 hours): 04/12/24 04/12/24 04/12/24 16:59 20:46 20:48 Glucose POC Glucose 134 H 307 H* 309 H* 04/13/24 04/13/24 04/13/24 00:25 05:34 05:39 Glucose 223 H POC Glucose 272 H 231 H 04/13/24 04/13/24 04/13/24 08:01 12:10 12:11 Glucose POC Glucose 238 H 364 H* 346 H* OUTPATIENT ANTIDIABETIC REGIMEN: * semaglutide ASSESSMENT: 04/13/24: * Blood sugars elevated overnight, likely due to IV methylprednisolone q8h * Will increase basal and tighten bolus parameters today * Blood sugar > 300 mg/dL at lunch, will give one-time IV insulin bolus 04/12/24: * 73 year old admitted with bronchitis, started on steroids. Type 2 diabetic managed on semaglutide outpatient. A1c 8.4% per notes as of Jan 2024. Pharmacy consulted for glycemic management for ongoing steroids. PLAN FOR INPATIENT GLYCEMIC CONTROL: * Hold outpatient diabetes medications * Basal insulin * Lantus 25 units SC daily * Lantus 0-5-10 units SC HS (see EHR for details) * Bolus insulin * NovoLog per scale ACHS or Q6hrs while NPO * Goal Range: Low 110 mg/dL - High 140 mg/dL * Correction Factor: 20 mg/dL/unit * Nutritional / Prandial insulin per carb ratio of 1 unit per 7 grams CHO consumed
--- NOTE | 2024-04-13 13:58 | Hospitalist Progress Note ---
Date of Service April 13, 2024 Assessment & Plan (1) SOB (shortness of breath): Plan: Sepsis secondary to pneumonia, influenza A infection Possible COPD exacerbation, secondary to above CT chest: 1. Some breathing motion artifact. No central pulmonary embolism. 2. Small area of patchy airspace disease in the right medial upper lobe. Mild peribronchial thickening bilaterally. May represent infectious/inflammatory process. Blood culture: Pending Sputum culture: Pending Lactic acid normal 04/13 Fever curve improving, still mildly tachycardic Clinically patient is improving, shortness of breath resolved, still having some cough Continue present regimen including Tamiflu, cefepime plus doxycycline, nebs, Solu-Medrol 40 mg IV every 8 hours Gentle IV fluids x 1 L Follow-up sputum, blood cultures Chronic medical conditions: Nonobstructive CAD/PVD status post surgery hypertension, slightly elevated patient not on maintenance medications at home - Monitor closely hyperlipidemia, on statin Rx DM2 on oral medications, suboptimal control as of recent hemoglobin A1c of 8.4 last January 2024 -Pharmacy glycemic management consulted chronic anemia, hemoglobin at baseline ongoing tobacco abuse Nicotine patch as needed DVT prophylaxis. Lovenox subcu Full code Admission and Anticipated Discharge Date Admission Date: April 12, 2024 Subjective Follow-up for sepsis secondary to influenza, pneumonia, etc. Seen resting in bed, sitting up, comfortable, in good spirits States he feels improved compared to yesterday Shortness of breath resolved Still having some productive cough No chest pain, nausea vomiting No other new symptom Review of Systems Review of Systems: all noted and negative except for above Physical Exam 2 Physical Exam: General- oriented x 3, not in distress, speaks in sentences with no effort or accessory muscle use Eyes- anicteric Neck- no JVD Lungs-Scattered crackles bilaterally Heart- normal rate, regular rhythm; no murmurs Abdomen- normal bowel sounds, nondistended, soft, nontender Extremities- no pretibial edema, no calf tenderness Neuro- alert, oriented x 3; no gross focal neurologic deficits Skin- warm & dry Results & Data Results & Data Vital Signs (Past 12 Hours) Vital Signs Temp Pulse Pulse Pulse Resp BP Pulse Ox 04/13/24 13:16 102 H 18 95 04/13/24 13:00 109 H 04/13/24 09:00 04/13/24 07:51 36.7 C 103 H 20 128/71 91 04/13/24 07:12 72 18 94 04/13/24 07:00 95 H 04/13/24 04:00 36.7 C 91 H 18 121/73 93 O2 Del Method 04/13/24 13:16 Room Air 04/13/24 13:00 04/13/24 09:00 Room Air 04/13/24 07:51 Room Air 04/13/24 07:12 Room Air 04/13/24 07:00 04/13/24 04:00 Room Air all noted and reviewed including below
[2024-04-13] MEDS: METOPROLOL TARTRATE 1 MG/ML VIAL IV ONE (15:45)
[2024-04-13] MEDS: MoRPHine SULFATE 4 MG/ML 1 ML CARP\\VIAL ONE (15:45)
[2024-04-13] MEDS: MoRPHine SULFATE 4 MG/ML 1 ML CARP\\VIAL IV STA (15:45)
[2024-04-13] MEDS: METOPROLOL TARTRATE 1 MG/ML VIAL IV STA (15:46)
[2024-04-13] MEDS: PROMETHAZINE 6.25 MG/50.25 ML BAG IV PRN (15:54)
[2024-04-13] MEDS: NSS + 20MEQ KCL 20 MEQ/1,000 ML BAG IV SCH (16:28)
[2024-04-13] MEDS: PANTOprazole 40 MG/10 ML SYR IV ONE (16:28)
[2024-04-13] MEDS ORDERED: METOPROLOL TARTRATE 1 MG/ML VIAL IV PRN (17:00)
[2024-04-13 17:04] LABS: Albumin Level 3.6 gm/dl (3.4-5.0); BUN Creatinine Ratio 19.2 (10-20); Bilirubin Direct 0.1 mg/dl (0-0.2); Bilirubin,Total 0.4 mg/dl (0.2-1.0); Calcium 8.7 mg/dl (8.6-10.3); Creatinine Clr Calc Pharmacy 49.5 ml/min; Magnesium 2.3 mg/dl (1.7-2.4); Phosphorus 1.6 mg/dl (2.5-4.9); Potassium 3.4 mmol/L (3.5-5.1); Total Protein 7.3 gm/dl (6.0-8.3)
[2024-04-13 17:09] LABS: Troponin I High Sensitivity 14.5 pg/ml (0-20)
--- NOTE | 2024-04-13 17:31 | CT Scan Report ---
Clinical History: Severe headaches. Technique: Axial computed tomography images were obtained of the brain from the vertex to the skull base without intravenous contrast. Findings: There is no sign of intracranial hemorrhage. There is normal ramsay-white matter differentiation with no sign of acute or old infarction. No midline shift or other form of herniation is identified. There is no hydrocephalus. No obvious mass lesion is seen on this noncontrast examination. There is mild mucosal thickening in the maxillary, ethmoid, and sphenoid sinuses. The mastoid air cells appear clear Impression: 1. Normal-appearing brain 2. Mild chronic sinusitis Electronically signed by Solomon Strong 04-13-2024 5:31 PM
--- NOTE | 2024-04-13 17:37 | CT Scan Report ---
Technique: Axial computed tomography images were obtained of the abdomen and pelvis without intravenous contrast. Comparison is made to the chest CT dated 04/11/2024 Findings: The liver is overall of normal size, attenuation, and contour with no sign of cirrhosis or significant fatty infiltration. No definite liver mass lesion is seen on this noncontrast study. There are suspected gallstones. There is no sign of acute cholecystitis. No bile duct dilatation is noted. The spleen is of normal size. No focal splenic lesion is evident. The pancreas appears normal with no sign of acute or chronic pancreatitis and no mass lesion noted. The pancreatic duct is of normal caliber. The adrenal glands appear unremarkable. No renal or proximal ureteral calculi are seen. There is no hydronephrosis or perinephric stranding. No definite renal mass lesion is identified. The aorta is of normal caliber. There is multifocal atherosclerotic plaque No abdominal adenopathy is seen. There is a small umbilical hernia containing only fat The stomach appears normal. There is no sign of small bowel obstruction. The colon appears unremarkable. There is no sign of appendicitis. No free intraperitoneal air is identified. There is a small amount of free pelvic fluid No distal ureteral or bladder calculi are seen. No obvious bladder mass lesion is evident. The iliac arteries are of normal caliber. There are bilateral common iliac artery stents. No pelvic adenopathy is noted. The lungs bases appear clear. There is grade 1 anterolisthesis at L4-5 and L5-S1. No fracture is identified. No focal osseous lesion is seen Impression: 1. Cholelithiasis without evidence of acute cholecystitis 2. Small umbilical hernia containing only fat 3. Small amount of free pelvic fluid, of uncertain etiology Electronically signed by Solomon Strong 04-13-2024 5:36 PM
[2024-04-13] MEDS ORDERED: POTASSIUM PHOS 3 MMOL/1 ML INFUSION IV STA (17:39)
[2024-04-13] MEDS ORDERED: METOPROLOL TARTRATE 25 MG TAB PO SCH (18:00)
[2024-04-13] MEDS: HEPARIN 25000 UNIT/500 ML D5W 25,000 UNITS/500 ML BAG IV SCH (18:20)
[2024-04-13] MEDS: POTASSIUM CHLORIDE / WTR 10 MEQ/100 ML PLCT IV SCH (18:21)
[2024-04-13] MEDS: Heparin IV Adult Wt-Based Low-Dose *NO* INITIAL Bolus Protocol IV SCH (18:21)
[2024-04-13] MEDS: METOPROLOL TARTRATE 25 MG TAB PO SCH (18:32)
[2024-04-13] MEDS: POTASSIUM PHOSPHATE 21 MMOL in SODIUM CHLORIDE 0.9% 500 ML IV ONE (18:32)
[2024-04-13] MEDS: oxyCODONE HCL IR 5 MG TAB (IMMEDIATE RELEASE) PO PRN (20:23)
[2024-04-14 01:55] LABS: ANTI-Xa, UFH(UnfractionatedHep 0.38 IU/ml (0.3-0.7)
[2024-04-14 08:23] LABS: Basophils # (auto) 0.02 K/uL (0.00-0.20); Basophils % (auto) 0.2 %; Hematocrit (blood only) 32.7 % (42.0-52.0); Hemoglobin 11.2 g/dl (14.0-18.0); Immature Granulocytes # (auto) 0.06 K/uL (0.01-0.20); Immature Granulocytes % (auto) 0.5 %; Lymphocytes # (auto) 1.28 K/uL (1.20-3.40); Lymphocytes % (auto) 11.6 %; Mean Corpuscular Hemoglobin 29.7 pg (25.0-34.0); Mean Corpuscular Hgb Conc 34.3 g/dL (32.0-36.0); Mean Corpuscular Volume 86.7 fL (80.0-100.0); Mean Platelet Volume 10.7 fL (9.4-12.4); Monocytes # (auto) 0.64 K/uL (0.11-0.59); Monocytes % (auto) 5.8 %; Neutrophils % (auto) 81.9 %; Platelet Count 133 K/uL (130-400); RDW Coefficient of Variation 13.6 % (11.5-14.5); RDW Standard Deviation 43.4 fL (36.4-46.3); Red Blood Count 3.77 M/uL (4.70-6.10)
[2024-04-14 08:32] LABS: BUN Creatinine Ratio 26.4 (10-20); Calcium 8.1 mg/dl (8.6-10.3); Magnesium 2.2 mg/dl (1.7-2.4); Phosphorus 3.1 mg/dl (2.5-4.9); Potassium 4.6 mmol/L (3.5-5.1)
[2024-04-14 08:34] LABS: ANTI-Xa, UFH(UnfractionatedHep 0.69 IU/ml (0.3-0.7)
[2024-04-14] MEDS: LEVALBUTEROL 1.25 MG/3 ML NEB NEB PRN (09:39)
[2024-04-14] MEDS: IPRATROPIUM BROMIDE NEB SOLN 0.02% 0.5MG/2.5ML VIAL NEB PRN (09:39)
[2024-04-14] MEDS: LANTUS PER UNIT CHARGE SQ SCH (09:49)
[2024-04-14] MEDS: BENZONATATE 100 MG CAPSULE PO PRN (09:49)
[2024-04-14] MEDS ORDERED: NICOTINE POLACRILEX 2 MG GUM MT PRN (10:53)
[2024-04-14] MEDS: NICOTINE 14 MG/24 HR PATCH TD SCH (11:54)
[2024-04-14] MEDS: METOPROLOL TARTRATE 25 MG TAB PO ONE (11:55)
--- NOTE | 2024-04-14 12:07 | Cardiology Consultation ---
Date of Consultation April 14, 2024 Assessment & Plan (1) Influenza: (2) Atrial fibrillation: CT of the chest performed on 04/12/2024 revealed suggestion of pneumonia. No pulm embolism noted. Mild coronary calcification noted per radiology report. Sinus tachycardia was observed on the patient's presenting EKG on 04/11/2024 and EKG performed 04/13/2024 that he reverted to atrial fibrillation. It is uncertain whether not the patient has had a recent history of paroxysmal atrial fibrillation or if this is his first episode as he does not appear to appreciate that his heart rate is irregular and elevated. Telemetry reveals ongoing elevated ventricular rates in the range of 110 220 bpm while he is eating lunch. At this time, recommend discontinuing metoprolol titrate and changing to succinate formulation with dose increase to 50 mg twice daily. The patient's [id number] score is at least 3 for risk factors of age over 65 ,but less than 75, vascular disease, and DM predicting moderate risk for cardioembolic stroke. Anticoagulation is therefore recommended. Continue unfractioned heparin for now. If no invasive procedures planned, would consider transitioning to Eliquis 5 mg twice daily either tonight at 2100 or tomorrow at 9 AM. Anticipate rates will improve as his respiratory illness improves. History of Present Illness Attending Physician: Gabriel Ahumada MD History of Present Illness Mr Carr is a 73 year old male seen in cardiology consultation per the request of Dr Bush for the evaluation of atrial fibrillation. Patient notes recent cough and shortness of breath for several days leading up to his presentation to the emergency department on 04/11/2024 when he was found to have influenza a with superimposed bacterial pneumonia as well as atrial fibrillation with rapid ventricular response. Treatment thus far has included Tamiflu, cefepime, doxycycline. From an atrial fibrillation standpoint treatment with metoprolol tartrate 25 mg twice daily and heparin initiated. Patient notes ongoing issues with productive cough but is feeling improved. He has no definite sensation of an irregular or elevated heart rate. On review of systems he notes mild occasional brief chest discomforts that seem somewhat random in their occurrence as an outpatient. No recent symptoms suggestive of angina. Patient follows with Dr Dooley of [facility]. Patient had previously followed with Dr Patel of [facility] , but states he has not seen Dr Patel in a few years. The last available cardiology progress noted dated 07/08/2018 documents the following history: 1.Peripheral arterial disease was previous severe claudication of the right leg which patient underwent bilateral iliac stenting 2. Status post left carotid endarterectomy 3. 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 Coronary heart disease noted on previous cardiac catheterization in 2010 ([facility]) 5. Longstanding cigarette smoking 6. Dyslipidemia Allergies Allergy/AdvReac Type Severity Reaction Status Date / Time prednisone AdvReac Mild "goes Verified 01/26/19 14:43 wacko gets nasty" Home Medications Medication Instructions Recorded Confirmed Type aspirin 81 mg PO DAILY 04/12/24 04/12/24 History atorvastatin 40 mg tablet See Rx Instructions .Route .COMPLEX 04/12/24 04/12/24 History cilostazol 100 mg tablet See Rx Instructions .Route .COMPLEX 04/12/24 04/12/24 History semaglutide 7 mg tablet (Rybelsus) See Rx Instructions .Route .COMPLEX 04/12/24 04/12/24 History Patient History Medical History Carpal tunnel syndrome Surgical History History of hernia repair Family History Sister Diabetes Hypertension Sarcoidosis Skin cancer Daughter No problems noted. Brother Diabetes Mother Diabetes Myocardial infarction Father Diabetes Suicide Other Dyslipidemia Stroke Denies family history of Ovarian cancer Prostate cancer Breast cancer Colorectal cancer Social History Smoking Status: Current every day smoker Tobacco Type: Cigarettes packs per day: 1; Second Hand Exposure: Yes; Do You Dip or Chew Tobacco: No; Hx Alcohol Use: No Hx Substance Use: No Preferred Language: Kazakh Communication Ability: Effective Visual Impairment: No Limitations Hearing Ability: Normal Yoga Coordinator Required: No Beliefs That Will Affect Care: None marital status: Current Living Situation: Spouse current occupational status: employed 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 [employer] Feels Safe at Home: No Safety Concerns: Afraid for Self Dental Care, Regularly: Yes Physical Activity Frequency: Daily Seatbelt Use: always Sunscreen Use: Yes Assistive Devices: Cane and Walker Review of Systems Review of Systems: All systems reviewed & are unremarkable except as noted in HPI & below Physical Exam Physical Exam: General: no acute distress and stated age Eyes: conjunctiva are pink and non-injected, sclera clear Neck: normal jugular venous pulse, no hepatojugular reflux Chest: normal shape and normal respiratory effort Lungs: Coarse breath sounds at the bases bilaterally Cardiac Exam: -Irregular rhythm, no murmurs Abdomen: abdomen soft, non-tender, no abnormal masses and no hepatosplenomegaly Musculoskeletal: no gait disturbance, no weakness Extremities: no edema and no cyanosis Neuro:awake, conversant, follows commands, no focal motor deficits Psych: appropriate affect and insight. Results & Data Vital Signs (Past 12 Hours) Vital Signs Temp Pulse Pulse Resp BP Pulse Ox O2 Del Method 04/14/24 10:32 36.4 C L 94 H 18 109/58 L 95 Room Air 04/14/24 09:39 97 H 15 94 Room Air 04/14/24 07:17 36.5 C 104 H 18 135/95 95 Room Air 04/14/24 03:12 36.5 C 91 H 18 106/64 95 Room Air 04/14/24 00:20 96 H FiO2 04/14/24 10:32 04/14/24 09:39 21 04/14/24 07:17 04/14/24 03:12 04/14/24 00:20 Laboratory Results Cardiac Enzymes 04/13/24 04/14/24 Range/Units 16:30 00:31 AST 27 (13-39) U/L Troponin I High Sens 14.5 15.3 (0-20) pg/ml CBC 04/14/24 Range/Units 07:38 WBC 11.00 H (4.8-10.8) K/ul RBC 3.77 L (4.70-6.10) M/uL Hgb 11.2 L (14.0-18.0) g/dl Hct 32.7 L (42.0-52.0) % Plt Count 133 (130-400) K/uL Neut # (Auto) 9.00 H (1.40-6.50) K/uL Lymph # (Auto) 1.28 (1.20-3.40) K/uL Page # (Auto) 0.64 H (0.11-0.59) K/uL Eos # (Auto) 0.00 (0.00-0.50) K/uL Baso # (Auto) 0.02 (0.00-0.20) K/uL Comprehensive Metabolic Panel 04/13/24 04/14/24 Range/Units 16:30 07:38 Sodium 138 137 (136-145) mmol/L Potassium 3.4 L 4.6 D (3.5-5.1) mmol/L Chloride 109 H 112 H (98-107) mmol/L Carbon Dioxide 20 L 18 L (21-32) mmol/L BUN 23 34 H (6-23) mg/dl Creatinine 1.20 1.29 (0.6-1.4) mg/dl Glucose 236 H 174 H (70-99(Fasting)) mg/dl Calcium 8.7 8.1 L (8.6-10.3) mg/dl Direct Bilirubin 0.1 (0-0.2) mg/dl AST 27 (13-39) U/L ALT 30 (7-52) U/L Alkaline Phosphatase 38 (34-104) U/L Total Protein 7.3 (6.0-8.3) gm/dl Albumin 3.6 (3.4-5.0) gm/dl Intake and Output 04/13/24 04/14/24 04/14/24 22:59 06:59 14:59 Intake Total 1445.517 / 2292.517 507 / 2292.517 192.533 / 192.533 Output Total 300 / 702 Balance 1445.517 / 1590.517 207 / 1590.517 192.533 / 192.533 Intake: IV 1445.517 / 1952.517 507 / 1952.517 192.533 / 192.533 Heparin 50898 Unit/500 ml D5w 13.6 / 13.6 192.533 / 192.533 25,000 units In 500 ml @ 800 UNITS/HR 16 mls/hr IV .Q24H ZAHIRA Rx#:[id number] Nss + 20Meq KCl 20 meq In 1,000 1000 / 1000 ml @ 75 mls/hr IV .[id number] ZAHIRA Rx#:[id number] Potassium Chloride / Wtr 10 meq 381.667 / 381.667 In 100 ml @ 100 mls/hr IV Q1H ZAHIRA Rx#:[id number] Potassium Phosphate 21 mmol In 507 / 507 Sodium Chloride 0.9% 500 ml @ 88 mls/hr IV ONE ONE Rx#: [id number] Promethazine 6.25 mg In 50.25 50.25 / 50.25 ml @ 201 mls/hr IV Q6H PRN Rx#: [id number] Output: Urine 300 / 700 Other: # Unmeasured Voids 1 Weight 70.942 kg Weight Measurement Method Built in [facility] Diagnostic Findings EKG performed on presentation 04/11/2024 at 1642 and interpret independently: Sinus tachycardia at 127 bpm with premature atrial contractions. Repeat tracing performed 04/13/2024 at 1534 revealed atrial fibrillation with rapid ventricular response at 142 bpm with noted lateral ST segment depression. Echocardiogram performed today and reviewed independently. Rate controlled atrial fibrillation in the 90s noted during the study. The left ventricular regional wall motion is normal, LVEF normal at 55 to 60%. Normal left atrial size.
--- NOTE | 2024-04-14 13:27 | Hospitalist Progress Note ---
Date of Service April 14, 2024 Assessment & Plan (1) SOB (shortness of breath): Plan: Sepsis secondary to pneumonia, influenza A infection Possible COPD exacerbation, secondary to above CT chest: 1. Some breathing motion artifact. No central pulmonary embolism. 2. Small area of patchy airspace disease in the right medial upper lobe. Mild peribronchial thickening bilaterally. May represent infectious/inflammatory process. Blood culture: NGTD Sputum culture: light normal lewis Clinically patient is improving, shortness of breath resolved, still having some cough Continue present regimen including Tamiflu, cefepime plus doxycycline, neb. Atrial fibrillation with RVR Patient converted to atrial fibrillation on April 13, 2024 [id number] score of at least 3 Echo shows EF of 55 to 60% Continue on metoprolol and heparin for the time being Chronic medical conditions: Nonobstructive CAD/PVD status post surgery hypertension, slightly elevated patient not on maintenance medications at home - Monitor closely hyperlipidemia, on statin Rx DM2 on oral medications, suboptimal control as of recent hemoglobin A1c of 8.4 last January 2024 -Pharmacy glycemic management consulted chronic anemia, hemoglobin at baseline ongoing tobacco abuse Nicotine patch as needed DVT prophylaxis. Lovenox subcu Full code Time spent evaluating patient, direct bedside care, chart review, placing orders, interpretation of diagnostic studies, discussion with consultants, patient, and family members, as well as other required patient management activities is 50 minutes Please note the above document was generated using voice recognition software. It may contain grammatical, syntax or spelling errors. Any formal questions or concerns about the content, text or information contained within the body of this dictation should be directly addressed to the provider for clarification Admission and Anticipated Discharge Date Admission Date: April 12, 2024 Subjective Patient seen and examined at bedside He is comfortable; not in distress Continues to have cough with mucoid sputum Review of Systems Review of Systems: All systems reviewed & are unremarkable except as noted in Subjective Physical Exam Physical Exam: General- oriented x 3, not in distress, speaks in sentences with no effort or accessory muscle use Eyes- anicteric Neck- no JVD Lungs-Scattered crackles bilaterally at bases Heart- normal rate, regular rhythm; no murmurs Abdomen- normal bowel sounds, nondistended, soft, nontender Extremities- no pretibial edema, no calf tenderness Neuro- alert, oriented x 3; no gross focal neurologic deficits Skin- warm & dry Results & Data Results & Data Vital Signs (Past 12 Hours) Vital Signs Temp Pulse Resp BP Pulse Ox O2 Del Method FiO2 04/14/24 12:31 Room Air 04/14/24 10:32 36.4 C L 94 H 18 109/58 L 95 Room Air 04/14/24 09:39 97 H 15 94 Room Air 21 04/14/24 07:17 36.5 C 104 H 18 135/95 95 Room Air 04/14/24 03:12 36.5 C 91 H 18 106/64 95 Room Air
--- NOTE | 2024-04-14 14:49 | Electrocardiogram Report ---
Test Reason : Blood Pressure : */* mmHG Vent. Rate : 142 BPM Atrial Rate : 125 BPM P-R Int : * ms QRS Dur : 84 ms QT Int : 302 ms P-R-T Axes : * 69 255 degrees QTcB Int : 464 ms Atrial fibrillation with rapid ventricular response Septal infarct (cited on or before 11-Apr-2024) Marked T-wave abnormality, consider inferolateral ischemia Abnormal ECG When compared with ECG of 11-Apr-2024 16:42, Atrial fibrillation has replaced Sinus rhythm Nonspecific T wave abnormality, worse in Inferior leads Confirmed by Guille Hoskins ([id number]) on 04/14/2024 2:49:13 PM Referred By: NO PCP Confirmed By: Guille Hoskins
[2024-04-14] MEDS: METOPROLOL SUCC 50MG EXT REL TAB PO SCH (20:13)
[2024-04-15 07:27] VITALS: RESP 20; O2SAT 95
[2024-04-15 07:45] LABS: Basophils # (auto) 0.03 K/uL (0.00-0.20); Basophils % (auto) 0.3 %; Eosinophils # (auto) 0.03 K/uL (0.00-0.50); Eosinophils % (auto) 0.3 %; Hematocrit (blood only) 32.9 % (42.0-52.0); Hemoglobin 11.1 g/dl (14.0-18.0); Immature Granulocytes # (auto) 0.17 K/uL (0.01-0.20); Immature Granulocytes % (auto) 1.5 %; Lymphocytes % (auto) 20.3 %; Mean Corpuscular Hemoglobin 29.3 pg (25.0-34.0); Mean Corpuscular Hgb Conc 33.7 g/dL (32.0-36.0); Mean Corpuscular Volume 86.8 fL (80.0-100.0); Mean Platelet Volume 10.4 fL (9.4-12.4); Monocytes # (auto) 0.83 K/uL (0.11-0.59); Monocytes % (auto) 7.3 %; Neutrophils # (auto) 7.95 K/uL (1.40-6.50); Neutrophils % (auto) 70.3 %; Platelet Count 154 K/uL (130-400); RDW Coefficient of Variation 13.8 % (11.5-14.5); RDW Standard Deviation 43.7 fL (36.4-46.3); Red Blood Count 3.79 M/uL (4.70-6.10); White Blood Count 11.31 K/ul (4.8-10.8)
[2024-04-15 08:00] LABS: BUN Creatinine Ratio 25.8 (10-20); Calcium 8.4 mg/dl (8.6-10.3); Creatinine Clr Calc Pharmacy 49.5 ml/min; Potassium 4.2 mmol/L (3.5-5.1)
--- NOTE | 2024-04-15 08:57 | Hospitalist Progress Note ---
Date of Service April 15, 2024 Assessment & Plan (1) SOB (shortness of breath): Plan: Sepsis secondary to pneumonia, influenza A infection Possible COPD exacerbation, secondary to above CT chest: 1. Some breathing motion artifact. No central pulmonary embolism. 2. Small area of patchy airspace disease in the right medial upper lobe. Mild peribronchial thickening bilaterally. May represent infectious/inflammatory process. Blood culture: NGTD Sputum culture: light normal lewis During the hospitalization, patient was treated with Tamiflu, antibiotic course, breathing treatment. Patient was saturating well in room air. Atrial fibrillation with RVR Patient converted to atrial fibrillation on April 13, 2024 [id number] score of at least 3 Echo shows EF of 55 to 60% Continue on metoprolol Cardiology was consulted for comanagement; patient was started on metoprolol succinate which resulted in improvement in the ventricular rate. He was also started on Eliquis. He was instructed to cilostazol; continue on aspirin. This was discussed with cardiology. Chronic medical conditions: Nonobstructive CAD/PVD status post surgery hypertension, slightly elevated patient not on maintenance medications at home- Monitor closely hyperlipidemia, on statin Rx DM2 on oral medications, suboptimal control as of recent hemoglobin A1c of 8.4 last January 2024 -Pharmacy glycemic management consulted chronic anemia, hemoglobin at baseline ongoing tobacco abuse DVT prophylaxis. angelika Full code Time spent evaluating patient, direct bedside care, chart review, placing orders, interpretation of diagnostic studies, discussion with consultants, patient, and family members, as well as other required patient management activities is 50 minutes Please note the above document was generated using voice recognition software. It may contain grammatical, syntax or spelling errors. Any formal questions or concerns about the content, text or information contained within the body of this dictation should be directly addressed to the provider for clarification Admission and Anticipated Discharge Date Admission Date: April 12, 2024 Subjective Patient seen and examined at bedside. Comfortable; not in distress. Denies fever, chills, chest pain, shortness of breath, abdominal pain or urinary symptoms. No significant overnight events Telemetry showed rate controlled atrial fibrillation Review of Systems Review of Systems: All systems reviewed & are unremarkable except as noted in Subjective Physical Exam Physical Exam: General- oriented x 3, not in distress, speaks in sentences with no effort or accessory muscle use Eyes- anicteric Neck- no JVD Lungs-Scattered crackles bilaterally at bases Heart- irregular, ; no murmurs Abdomen- normal bowel sounds, nondistended, soft, nontender Extremities- no pretibial edema, no calf tenderness Neuro- alert, oriented x 3; no gross focal neurologic deficits Skin- warm & dry Results & Data Results & Data Vital Signs (Past 12 Hours) Vital Signs Temp Pulse Pulse Pulse Resp BP Pulse Ox 04/15/24 07:24 36.8 C 95 H 20 147/84 H 95 04/15/24 03:09 36.9 C 90 18 121/74 94 04/14/24 23:01 36.9 C 80 18 115/61 92 04/14/24 21:46 105 H O2 Del Method 04/15/24 07:24 Room Air 04/15/24 03:09 Room Air 04/14/24 23:01 Room Air 04/14/24 21:46
--- NOTE | 2024-04-15 09:15 | Pharmacy Report ---
Pharmacy Glycemic Short Note 2 - Date of Service April 15, 2024 - Glycemic Short BSG Results (Last 24 hours): 04/14/24 04/14/24 04/14/24 10:59 16:09 19:56 Glucose POC Glucose 242 H 114 H 205 H 04/15/24 04/15/24 06:58 07:28 Glucose 97 POC Glucose 95 OUTPATIENT ANTIDIABETIC REGIMEN: * semaglutide ASSESSMENT: 04/15/24: * Patient received a total of 60 units of insulin yesterday (30 were basal and 30 were bolus). This is a significant decrease in insulin use from the previous day which is to be expected since steroids were discontinued 04/13. * Fasting BSG was 95mg/dL this morning. Will hold morning Lantus today and loosen the parameters of the bolus insulin to a weight based stress of 2. Will continue the HS Lantus scale incase BSGs rise again through the day with the previously mentioned changes. * Patient continues on cefepime, doxycycline, and Tamiflu. 04/13/24 * Blood sugars elevated overnight, likely due to IV methylprednisolone q8h * Will increase basal and tighten bolus parameters today * Blood sugar > 300 mg/dL at lunch, will give one-time IV insulin bolus 04/12/24: * 73 year old admitted with bronchitis, started on steroids. Type 2 diabetic managed on semaglutide outpatient. A1c 8.4% per notes as of Jan 2024. Pharmacy consulted for glycemic management for ongoing steroids. PLAN FOR INPATIENT GLYCEMIC CONTROL: * Hold outpatient diabetes medications * Basal insulin * Lantus 0-5-10 units SC HS (see EHR for details) * Bolus insulin * NovoLog per scale ACHS or Q6hrs while NPO * Goal Range: Low 110 mg/dL - High 140 mg/dL * Correction Factor: 35 mg/dL/unit * Nutritional / Prandial insulin per carb ratio of 1 unit per 10 grams CHO consumed
[2024-04-15] MEDS: APIXABAN 5 MG TABLET PO SCH (10:17)
[2024-04-15 11:14] LABS: ANTI-Xa, UFH(UnfractionatedHep 0.79 IU/ml (0.3-0.7)
[2024-04-15 11:23] VITALS: BP 180/73; TEMP 97.7
--- NOTE | 2024-04-15 13:32 | Discharge Summary ---
Date of Service April 15, 2024 Admission HPI Per Admitting Provider History obtained from patient and records. Medical history significant for nonobstructive CAD, PVD status post surgery, hypertension, hyperlipidemia, DM2 on oral medications, chronic anemia (baseline hemoglobin of 13), mood disorder, ongoing tobacco abuse. Few days history of dry cough symptoms which later progressed to junky yellow expectorate. Worsening shortness of breath with substernal pain. Sick contacts. Patient consulted [facility] urgent care center. Directed to ER for further evaluation. Flu swab positive. Tamiflu and neb treatment administered at the ER. 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 [employer] Admission Exam Per Admitting Provider GENERAL: Slightly uncomfortable, unkempt, pleasant, no respiratory distress SKIN: Normal color, warm HEENT: Bespectacled, pink palpebral conjunctivae, no ptosis, dry buccal mucosa NECK : Supple, no tenderness CHEST : Decreased breath sounds, occasional expiratory wheezes, no tenderness HEART : Tachycardic, no obvious murmurs ABDOMEN: no distention, nontender EXTREMITIES : No LE swelling/tenderness, palpable pulses, no other conspicuous deformities noted NEUROLOGIC : Coherent, no facial asymmetry, no other gross focality Principal Diagnosis Sepsis secondary to pneumonia, influenza A infection Possible COPD exacerbation, secondary to above Atrial fibrillation with RVR Discharge Exam General- oriented x 3, not in distress, speaks in sentences with no effort or ac cessory muscle use Eyes- anicteric Neck- no JVD Lungs-b/l clear breath sounds Heart- irregular, ; no murmurs Abdomen- normal bowel sounds, nondistended, soft, nontender Extremities- no pretibial edema, no calf tenderness Neuro- alert, oriented x 3; no gross focal neurologic deficits Skin- warm & dry Discharge Data Allergies Allergy/AdvReac Type Severity Reaction Status Date / Time prednisone AdvReac Mild "goes Verified 01/26/19 14:43 wacko gets nasty" Consultations 04/11/24 21:37 ED Decision to Admit Stat 04/13/24 18:13 Consult Cardiology Routine Ordered Studies 04/11/24 22:14 CT angio chest PE protocol Stat 04/13/24 15:37 CT Abdomen and Pelvis [CT abd pelvis wo con] Stat 04/13/24 15:59 CT head/brain wo con Stat Hospital Course (1) SOB (shortness of breath): Sepsis secondary to pneumonia, influenza A infection Possible COPD exacerbation, secondary to above Patient presented to the hospital with few days of dry cough which gradually progressed to yellow . He reported shortness of breath as well. Found to have influenza A positive CT chest showed some areas of patchy airspace disease During the hospitalization, patient was treated with Tamiflu, antibiotic course, breathing treatment. Patient was saturating well in room air at the time of discharge. Atrial fibrillation with RVR Patient converted to atrial fibrillation on April 13, 2024 [id number] score of at least 3 Echo shows EF of 55 to 60% Continue on metoprolol Cardiology was consulted for comanagement; patient was started on metoprolol succinate which resulted in improvement in the ventricular rate. He was also started on Eliquis. He was instructed to cilostazol; continue on aspirin. This was discussed with cardiology. Discussion was done with patient in details about his hospitalization at the time of the discharge. I discussed the possibility of going to rehab as patient has physically deconditioned due to the hospitalization/illness. However, patient did not want to go to rehab. I discussed the risks of fall while he is on anticoagulation; he verbalized understanding. Patient was discharged home with instructions to follow-up with PCP. Please note the above document was generated using voice recognition software. It may contain grammatical, syntax or spelling errors. Any formal questions or concerns about the content, text or information contained within the body of this dictation should be directly addressed to the provider for clarification Total Time Total Time Spent Total Time Spent (In Minutes): 45 Total Time Includes: Examination of the Patient, Discharge Planning, Medication Reconciliation, Communication With Other Providers and Other Discharge Plan Discharge Items Patient Disposition: Home - Self-Care Reason For Visit: SOB, FLU Discharge Diagnosis: Influenza A infection COPD exacerbation Pneumonia Activity: Resume your previous activity Non-emergency contact: Primary Care Provider Call non-emergency contact if: you have any medication questions and your symptoms worsen Follow-up/Referrals: Viik Cage DO [Primary Care Provider] - (The office will call you with a follow up appointment.) Diet: Regular Addtl Attending Provider Instructions: You were admitted to the hospital for following reasons. a) Influenza A; take Tamiflu for 2 more days b) Pneumonia; take cefdinir and doxycycline for 2 more days. c) Atrial fibrillation (irregular heart rhythm) - Take metoprolol 50 mg twice a day and Eliquis. Stop taking cilostazol as you are started on blood thinner. Continue to take aspirin. This was discussed with the chain hooker during the hospitalization. Please follow-up with her primary care doctor as scheduled Pending Studies at Discharge: No Stand-Alone Forms: My [facility], Smoking Cessation Medications and DC Order Prescriptions: New Eliquis 5 mg tablet 5 mg PO BID Qty: 60 0RF doxycycline hyclate 100 mg Capsule 100 mg PO BID 2 Days Qty: 4 0RF metoprolol succinate 50 mg Tablet Extended Release 24 Hr 50 mg PO BID 60 Days Qty: 120 0RF aspirin 81 mg Tablet,Delayed Release (Dr/Ec) 81 mg PO DAILY Qty: 30 0RF oseltamivir [Tamiflu] 6 mg/mL Suspension For Reconstitution 30 mg PO BID 2 Days Qty: 20 0RF Advanced Probiotic 625 mg (10 billion cell) Capsule 2 cap PO DAILY 3 Days Qty: 6 0RF guaifenesin [Mucinex] 600 mg Tablet Extended Release 12hr 600 mg PO Q12 5 Days Qty: 10 0RF cefdinir 300 mg capsule 300 mg PO BID 2 Days Qty: 4 0RF Continued atorvastatin 40 mg tablet See Rx Instructions .ROUTE .COMPLEX Rx Instructions: see outpatient order Rybelsus 7 mg tablet See Rx Instructions .ROUTE .COMPLEX Rx Instructions: see outpatient order aspirin 81 mg PO DAILY Discontinued cilostazol 100 mg tablet See Rx Instructions .ROUTE .COMPLEX Rx Instructions: see outpatient order Discharge Orders: Discharge Order (Routine); Ordered 04/15/24 Ordered By: Gabriel Ahumada Admission Data Admit Date/Time: 04/12/24 06:04 Attending Provider: Gabriel Ahumada Admit Provider: Baldemar Bonds Primary Care Provider: Viki Cage Other Providers: Baldemar Bonds; Lyn Cassidy; Alvaro Ferrell Sheldon D; Gonzalo Downey; Sukhjinder Diane; Sid Graham; Carri Lora; Rahel Phillips; Kesha Leal; Lyn Poole; Bautista Diggs; Lobo Pina; Gaby Leal; Melissa Mancini; Rosa Bearden; Jarret Martins; Dallas Rollins; Edita Pruitt; Mary Ellen Min
[2024-04-15 13:40] VITALS: PULSE 95
== END 2024-04-15 15:36 | disposition home or self-care (01) | DRG 871 ==
LOC: EDINP 15:51 → ED 15:51 → 2W 04-12 01:23 → SUATTDRO 04-12 06:04 → 2W 04-12 13:09 → 2S 04-13 20:29